=== PATIENT | female | born 1955 | race Caucasian/White ===

== ENCOUNTER → 2018-01-16 09:16 | Outpatient (CLI) | payer BC, SELFPAY ==
[2018-01-16 11:24] LABS: INR 1.3 (1.0-3.5); Prothrombin Time 12.4 sec (9.3-10.8)
== END ==
PROVIDERS: PCP Family Medicine; Visit Provider Family Medicine
DX: Z79.01 Long term (current) use of anticoagulants (principal); Z96.651 Presence of right artificial knee joint; I48.91 Unspecified atrial fibrillation
CPT/HCPCS: 36415; 85610

== ENCOUNTER 2018-01-23 02:05 | Outpatient (CLI) | payer BC, SELFPAY ==
[2018-01-23 11:16] LABS: INR 1.5 (1.0-3.5); Prothrombin Time 14.6 sec (9.3-10.8)
== END 2018-01-23 02:06 ==
PROVIDERS: PCP Family Medicine; Visit Provider Family Medicine
DX: I48.91 Unspecified atrial fibrillation (principal); Z79.01 Long term (current) use of anticoagulants
CPT/HCPCS: 36415; 85610

== ENCOUNTER 2018-01-23 08:00 | Outpatient (RCR) | payer BC, SELFPAY ==
--- NOTE | 2017-12-26 11:40 | PTTR_ITS ---
DATE: 12/26/17 SUBJECTIVE: Sanaz states she sees her surgeon later today. 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 She will discuss this with the surgeon at her appointment. OBJECTIVE: Manual therapy: ([id number]). Patella mobilizations in all directions, AP mobs to the tibiofemoral joint and hold relax mobs into terminal flexion achieving 110 . This is comparable to the left. Still lacking 3 to 5 of extension. Worked manual distraction through the tibiofemoral joint with over pressure into extension. AA to 0 and post mobilization lacking 3 . She went on to complete Wellness at no charge. Direct treatment time: 8:00 til 8:30 A.M. Did issue a MD note. Copy to be scanned to patient's EMR. Plan: Continue 2x per week for further mobilization and strengthening. MM/gc
--- NOTE | 2017-12-30 10:17 | PTTR_ITS ---
DATE: 12/30/17 SUBJECTIVE: Sanaz states that her MD appt went well and they gave her the ok to RTW. Sanaz states that she needs to have a conversation with HR before she can legally go back. She will begin 20 hr/wk for a few weeks and then go to her regular schedule. OBJECTIVE: Manual therapy: ([id number]). mobilizations of left tib/fem jt including posterior and anterior glides, ROM in seated and supine positions. Patella glides in all directions as well as stretching of hamstrings, ITB and piriformis, hip flex/quads in modified Uri test position. LE distractions via leg pull with over pressure into extension. STM t/o posterior hip and lateral glut region region as well as into ITB. Therapeutic procedures ([id number]). * x See flow sheet: for global LE strength and stabilization. * x Provided skilled instruction in proper exercise performance: isolation of specific mm groups. * x Other: finished via wellness at no charge, ended with cryo x 10 min. Direct treatment time: 30 min Total treatment time: 60 min
--- NOTE | 2018-01-02 09:49 | PTTR_ITS ---
DATE: 01/02/18 SUBJECTIVE: Sanaz states that she is waiting for paperwork regarding RTW. She is hoping to work tomorrow x 4 hours. OBJECTIVE: Manual therapy: ([id number]). mobilizations of tib/fem jt including anterior and posterior glides, ROM in seated and supine positions. Stretching hamstrings, ITB and piriformis in various positions as well as hip flex/quads in modified Uri test positions. LE distractions via leg pulls with over pressure stretch into extension. STM briefly of piriformis, TFL glut. Therapeutic procedures ([id number]). * x See flow sheet: for global LE strength and conditioning as well as hip stabilizations. * x Provided skilled instruction in proper exercise performance: proper quad engagement and avoiding compensatory mvmt patterns. Finished via wellness at no charge. Held on cryo post session due to time constraints. Direct treatment time: 30 min Total treatment time: 55 min
--- NOTE | 2018-01-06 10:53 | PTTR_ITS ---
DATE: 01/06/18 SUBJECTIVE: Sanaz states she went back to work, 6 hrs. per shift. Held up well with her knee. Actually dealt with more back and buttock pain. States that this progresses as the day goes on, with weight bearing and walking. Admits she has had a 5 year sams with these symptoms. OBJECTIVE: Seen today for a recheck - Patient's active hip ROM is WFL. Limited into flexion due to her pendulous abdomen. Tried some cross legged IT band and piriformis stretching, but she is unable to do this with either LE due to lack of mobility through the hips and knees. I do show her supine knee to contralateral shoulder for posterior hip stretching, which she is able to do with use of a towel. She was issued this to be done as part of her HEP. Also, spent time with TA activation, working on palpation for contraction isolation as well as proper breathing technique incorporating some diaphragmatic breathing with proper scapular positioning with retraction and depression. She required verbal and tactile cues for this activity. Hip abduction strength is 4-/5 right; 4/5 left. Hip extension 4/5 bilaterally. Quads and hams 4+/5 bilaterally. She went on to complete the remainder of her strengthening via Wellness at no charge. Therapeutic procedures ([id number]). Direct treatment time: 8:00 til 8:30 A.M. She completed her strengthening via Wellness at no charge. This was upgraded to include resisted band side stepping, backward stepping as well as seated core stabilization using a fit ball on the seat surface. Assessment: Symptoms are likely stemming from core stability weakness and glute weakness. This was evident with today's special testing. Plan: Continue with the current POC progressing core stabilization exercises via HEP as well. MM/gc
--- NOTE | 2018-01-09 09:00 | NT_ITS ---
01/09/18 NO CHARGE I fabricated a pair of accommodative custom orthotics using Aliplast buff and Plastizote material. Molded her in subtalar joint neutral position while seated. Placed a felt scaphoid pad bilaterally with metatarsal pad on her L. These fit well in her shoes upon completion . Proper break in time was gone over with the patient. 40 mins no charge. RF/dl
--- NOTE | 2018-01-09 11:34 | PTTR_ITS ---
DATE: 01/09/18 SUBJECTIVE: Sanaz states that she is holding up fairly well since returning to work. She c/o LBP and bilateral foot pain. She reports compliancy with HEP for stretching of low back and hips, and feels it is helpful. OBJECTIVE: Manual therapy: ([id number]). mobilizations of right tib/fem jt including posterior and anterior glides, P/ AAROM in seated and supine positions. Patella glides in all directions. Stretching of hamstrings, ITB, piriformis, hip flex/quads in modified Uri test position. LE distractions via leg pulls. Lumbar rotation in hooklying and SKTC. STM t/o posterior aspect of right hip and into buttock using PRT's and CFM. She was then fitted with orthotics see Claudy Luong note for details. She went onto perform a ther ex routine for global LE strength and stabilization while incorporating core and postural work. This was performed with assisted personnel at no charge. Direct treatment time: 35 min Total treatment time: 80 min
--- NOTE | 2018-01-13 07:07 | NT_ITS ---
01/13/18 Patient canc due to stomach illness. MM/dl
--- NOTE | 2018-01-16 13:06 | PTTR_ITS ---
DATE: 01/16/18 SUBJECTIVE: Sanaz states she has been having some left groin pain. Thinks it may be related to some of the exercises she did in our clinic last visit. OBJECTIVE: Seen today for a recheck - She does have pain with resisted quadriceps / knee extension on the left. She is tender with palpation of the proximal quadriceps. Mild discomfort with end range hip abduction at 40 . Painfree hip adduction strength testing at 4+/ 5. Did perform hold relax quadriceps stretching in modified Uri test position on the left. Had her hold on her left LE strengthening for hip flexion and quadriceps. Did perform manual therapy to the right knee for terminal extension achieving 0 AA post mobs with tibiofemoral joint distraction , as well as patella mobs in all directions. Manual therapy: ([id number]). Direct treatment time: 8:00 til 8:30 A.M. Completed strengthening via [employer] at no charge. Assessment: Mild quadriceps strain (left). Responded well to hold relax stretching with decreased pain with walking post stretching at today's session. Knee ROM is improving nicely with her flexion. Still hypo mobile with patella glides in all directions. Plan: Continue as indicated above. MM/gc
--- NOTE | 2018-01-20 08:00 | PTTR_ITS ---
DATE: 01/20/18 SUBJECTIVE: Sanaz continues to complain of L anterior hip pain. Has been holding up well with work in regards to her knee. Had a great day at work yesterday, walked to and from work as well as standing on her feet majority of the day. Got home after work and sat down. A 1/2 hour after she stood up and had intensifying anterior L pain. This was most noted with ambulating with advancing her L LE. Manual therapy: ([id number]). R knee mobilizations, tibiofemoral joint mobs, distraction, patella mobs and over pressure into extension. Upon re-check, the patient does have pain with resisted hip flexion with partial flexed knee SLR, also pain with advancing leg during stance and pain with pivots. She has (-) OA testing with Scour sign and/or Amber. Tender to palpation over the iliopsoas. We do modify her orthotic to shave down some of her scaphoid pad on the L. She then completed strengthening via wellness at no charge. Direct treatment time: 30 mins Total treatment time: 30 mins A: Appears to be presenting with anterior hip flexor strain. She may be compensating a little bit due to her scaphoid pad and orthotic, which we modified today. P: Follow up with later this week. If she continues to be symptomatic, will consider referral to begin treatment, otherwise start decreasing frequency of visits next week 1x a week. MM/dl
--- NOTE | 2018-01-23 08:00 | PTTR_ITS ---
DATE: 01/23/18 SUBJECTIVE: Sanaz states that her L hip has been feeling much better. Manual therapy: ([id number]). R knee mobilizations, anterior/posterior, followed by patella mobilizations in all directions, manual distraction, over pressure into extension lacking 3 degrees. Did perform some Nick strain, counterstrain PRT's to L hip flexor followed by some L hip anterior hip/quad hip flexion stretching. She then completed her therex via wellness. Direct treatment time: 30 mins Total treatment time: 30 mins A: Near full extension with R knee now. Patella mobility is mildly limited, but is continuing to progress. Ambulating with minimal antalgia now. P: Off next week, and will re-check her after that see how she holds up. Following that week, will discuss participation in MSP if she is holding up well. MM/dl
== END 2018-01-24 23:59 | disposition home or self-care (01) ==
LOC: PT 08:00
PROVIDERS: PCP Family Medicine; Referring Provider Orthopaedic Surgery; Visit Provider Orthopaedic Surgery
DX: Z47.1 Aftercare following joint replacement surgery (principal); Z96.651 Presence of right artificial knee joint
CPT/HCPCS: 97110; 97140

== ENCOUNTER 2018-01-29 02:02 | Outpatient (CLI) | payer BC, SELFPAY ==
[2018-01-29 10:03] LABS: INR 1.8 (1.0-3.5); Prothrombin Time 16.9 sec (9.3-10.8)
== END 2018-01-29 02:22 ==
PROVIDERS: PCP Family Medicine; Visit Provider Family Medicine
DX: I48.91 Unspecified atrial fibrillation (principal); Z79.01 Long term (current) use of anticoagulants
CPT/HCPCS: 36415; 85610

== ENCOUNTER 2018-02-06 02:17 | Outpatient (CLI) | payer BC, SELFPAY ==
[2018-02-06 11:50] LABS: INR 1.7 (1.0-3.5); Prothrombin Time 15.9 sec (9.3-10.8)
== END 2018-02-06 02:37 ==
PROVIDERS: PCP Family Medicine; Visit Provider Family Medicine
DX: I48.91 Unspecified atrial fibrillation (principal); Z79.01 Long term (current) use of anticoagulants
CPT/HCPCS: 36415; 85610

== ENCOUNTER 2018-02-14 01:11 | Outpatient (CLI) | payer BC, SELFPAY ==
[2018-02-14 11:43] LABS: Prothrombin Time 19.2 sec (9.3-10.8)
== END 2018-02-14 01:31 ==
PROVIDERS: PCP Family Medicine; Visit Provider Family Medicine
DX: I48.91 Unspecified atrial fibrillation (principal); Z79.01 Long term (current) use of anticoagulants
CPT/HCPCS: 36415; 85610

== ENCOUNTER 2018-03-12 02:01 | Outpatient (CLI) | payer BC, SELFPAY ==
[2018-03-12 11:17] LABS: Prothrombin Time 14.9 sec (9.3-10.8)
[2018-03-12 11:52] LABS: INR 1.5 (1.0-3.5)
== END 2018-03-12 02:21 ==
PROVIDERS: PCP Family Medicine; Visit Provider Family Medicine
DX: Z79.01 Long term (current) use of anticoagulants (principal)
CPT/HCPCS: 36415; 85610

== ENCOUNTER 2018-03-24 12:30 | Outpatient (CLI) | payer BC, SELFPAY ==
[2018-03-24 13:27] LABS: INR 1.9 (1.0-3.5); Prothrombin Time 18.3 sec (9.3-10.8)
== END 2018-03-24 12:50 ==
PROVIDERS: PCP Family Medicine; Visit Provider Family Medicine
DX: I48.91 Unspecified atrial fibrillation (principal); Z79.01 Long term (current) use of anticoagulants
CPT/HCPCS: 36415; 85610

== ENCOUNTER 2018-04-09 01:29 | Outpatient (CLI) | payer BC, SELFPAY ==
[2018-04-09 12:41] LABS: INR 1.9 (1.0-3.5); Prothrombin Time 18.4 sec (9.3-10.8)
== END 2018-04-09 01:49 ==
LOC: LOS 01:29 → LBO 11:37
PROVIDERS: PCP Family Medicine; Visit Provider Family Medicine
DX: Z79.01 Long term (current) use of anticoagulants (principal)
CPT/HCPCS: 36415; 85610

== ENCOUNTER 2018-04-21 10:53 | Outpatient (CLI) | payer BC, SELFPAY ==
[2018-04-21 11:37] LABS: Prothrombin Time 24.1 sec (9.3-10.8)
[2018-04-21 11:45] LABS: INR 2.5 (1.0-3.5)
== END 2018-04-21 11:13 ==
PROVIDERS: PCP Family Medicine; Visit Provider Family Medicine
DX: Z79.01 Long term (current) use of anticoagulants (principal)
CPT/HCPCS: 36415; 85610

== ENCOUNTER 2018-05-29 08:53 | Outpatient (CLI) | payer BC, SELFPAY ==
[2018-05-29 09:34] LABS: INR 3.3 (1.0-3.5)
== END 2018-05-29 09:13 ==
PROVIDERS: PCP Family Medicine; Visit Provider Family Medicine
DX: I48.2 Chronic atrial fibrillation (principal); Z79.01 Long term (current) use of anticoagulants
CPT/HCPCS: 36415; 85610

== ENCOUNTER 2018-06-11 08:51 | Outpatient (CLI) | payer BC, SELFPAY ==
[2018-06-11 09:51] LABS: Prothrombin Time 20.4 sec (9.3-11.0)
== END 2018-06-11 09:11 ==
PROVIDERS: PCP Family Medicine; Visit Provider Family Medicine
DX: I48.2 Chronic atrial fibrillation (principal); Z79.01 Long term (current) use of anticoagulants
CPT/HCPCS: 36415; 85610

== ENCOUNTER 2018-07-21 09:58 | Outpatient (CLI) | payer BC, SELFPAY ==
[2018-07-21 11:08] LABS: Prothrombin Time 30.8 sec (9.3-11.0)
[2018-07-21 11:43] LABS: Anion Gap 6.5 mmol/L (3-11); BUN 19 mg/dL (7-18); CO2 31.5 mmol/L (21.0-32.0); CREATININE 1.12 mg/dL (0.55-1.02); Calcium 9.1 mg/dL (8.5-10.1); Chloride 101 mmol/L (98-107); Cholesterol 243 mg/dL (50-200); Estimated GFR 48.98 (mL/min/1.73m2); Glucose 105 mg/dL (70-100); HDL Cholesterol 41 mg/dL (40-60); LDL CHOLESTEROL 163 mg/dL (<100); Potassium 3.5 mmol/L (3.5-5.1); Sodium 139 mmol/L (136-145); Triglyceride 215 mg/dL (30-150)
== END 2018-07-21 10:18 ==
PROVIDERS: PCP Family Medicine; Visit Provider Family Medicine
DX: E78.5 Hyperlipidemia, unspecified (principal); I10 Essential (primary) hypertension; Z79.01 Long term (current) use of anticoagulants; I48.91 Unspecified atrial fibrillation
CPT/HCPCS: 36415; 80048; 80061; 83721; 85610

== ENCOUNTER 2018-08-20 01:45 | Outpatient (CLI) | payer BC, SELFPAY ==
--- NOTE | 2018-08-20 09:20 | DI.MAMMO_ITS ---
SYMPTOM/DIAGNOSIS: SCREENING, Z12.31 MAMMOGRAMS: Mammograms were interpreted according to the usual protocol including computer analysis with CAD system, tomosynthesis and C view imaging. Comparison is made with exams from [id number]. The breasts are composed of fatty density tissue. No suspicious masses or suspicious microcalcifications are seen. There has been no significant change. IMPRESSION: Category 1, negative mammogram. Yearly screening mammography is recommended. Breast density, category A. SA ASSESSMENT OF FINDINGS: Negative. Category 1. Patient will receive a letter notifying them of these results. BI-RAD category A. The breasts are almost entirely fatty.
[2018-08-20 09:56] LABS: Prothrombin Time 30.3 sec (9.3-11.0)
[2018-08-20 12:04] LABS: ALT 27 U/L (12-78); AST 18 U/L (15-37); Albumin 3.7 g/dL (3.4-5.0); Alkaline Phosphatase 90 U/L (46-116); Bilirubin, Direct 0.08 mg/dL (0.00-0.20); Bilirubin, Total 0.3 mg/dL (0.2-1.0); NT-proBNP 387 pg/mL; TSH (W/Ref FT4) 2.24 uIU/mL (0.358-3.74); Total Protein 7.9 g/dL (6.4-8.2)
== END 2018-08-20 02:05 ==
PROVIDERS: Student in an Organized Health Care Education/Training Program; PCP Family Medicine; Visit Provider Family Medicine
DX: Z12.31 Encounter for screening mammogram for malignant neoplasm of breast (principal); I48.91 Unspecified atrial fibrillation; Z79.01 Long term (current) use of anticoagulants
CPT/HCPCS: 36415; 77063; 77067; 80076; 83880; 84443; 85610

== ENCOUNTER 2018-09-23 00:41 | Outpatient (CLI) | payer BC, SELFPAY ==
--- NOTE | 2018-09-23 10:22 | MERGE_ITS ---
*[facility]* *[facility]* [address] [place] [address] Date of study: 09/23/2018 Transthoracic Echocardiography M-mode, complete 2D, complete spectral Doppler, and color Doppler *STUDY CONCLUSIONS* Impressions: The patient was in atrial fibrillation throughout study. This rhythm can interfere with accurate global and segmental wall motion analysis. Summary: 1. Left ventricle: The cavity size was normal. Wall thickness was normal. Systolic function was normal. The estimated ejection fraction was 55-60%. Wall motion was normal; there were no regional wall motion abnormalities. 2. Aortic valve: Trileaflet; normal thickness leaflets. 3. Ascending aorta: The ascending aorta was mildly dilated. 4. Mitral valve: Mildly calcified annulus. There was mild to moderate regurgitation. 5. Right ventricle: The cavity size was normal. Wall thickness was normal. Systolic function was normal. 6. Tricuspid valve: There was mild-moderate regurgitation. 7. Pulmonary arteries: Pulmonary systolic pressure was increased, in the range of 35mm Hg to 40mm Hg. *PATIENT PRESENTATION* Height: 160cm ((63in) ) S/D Pressure: 144 / 97 Weight: 121.6kg ((267.4lb) ) BSA: 2.4m^2 Test start time: 10:40 AM. Test stop time: 11:45 AM. PERFORMING Unknown ORDERING Danilo Samuel REFERRING Danilo Samuel CONSULTING Kaushal Gillespie PERFORMING [facility] SUPERVIS[employer]ACHINE RT Daniella (R)(CT)DELANEY *PROCEDURE DATA* Procedure information: This study was interpreted by [facility]. Pertinent images and digital data are archived for permanent storage and are available for subsequent review. Comparison was made to the study of 09/21/2010. Study status: Routine. Transthoracic echocardiography. M-mode, complete 2D, complete spectral Doppler, and color Doppler. A Transthoracic Echocardiogram was performed. Scanning was performed from the parasternal, apical, subcostal, and suprasternal notch acoustic windows. Images were obtained using an [id number] cardiac ultrasound machine. Image quality was adequate. Study completion: The patient tolerated the procedure well. There were no complications. History: PMH: Afib i48.91 *CARDIAC ANATOMY* Left ventricle: The cavity size was normal. Wall thickness was normal. Systolic function was normal. The estimated ejection fraction was 55-60%. Wall motion was normal; there were no regional wall motion abnormalities. The study was not technically sufficient to allow evaluation of LV diastolic dysfunction due to atrial fibrillation. Aortic valve: Trileaflet; normal thickness leaflets. Mobility was not restricted. Doppler: Transvalvular velocity was within the normal range. There was no stenosis. There was no significant regurgitation. VTI ratio of LVOT to aortic valve: 0.55. Valve area (VTI): 1.4cm^2. Indexed valve area (VTI): 0.6cm^2/m^2. Peak velocity ratio of LVOT to aortic valve: 0.57. Valve area (Vmax): 1.4cm^2. Indexed valve area (Vmax): 0.6cm^2/m^2. Mean velocity ratio of LVOT to aortic valve: 0.62. Valve area (Vmean): 1.5cm^2. Indexed valve area (Vmean): 0.6cm^2/m^2. Mean gradient (S): 7.1mm Hg. Peak gradient (S): 11.9mm Hg. Aorta: Aortic root: The aortic root was normal in size. Ascending aorta: The ascending aorta was mildly dilated. Mitral valve: Mildly calcified annulus. Mobility was not restricted. Doppler: Transvalvular velocity was within the normal range. There was no evidence for stenosis. There was mild to moderate regurgitation. Valve area by pressure half-time: 3.7cm^2. Indexed valve area by pressure half-time: 1.5cm^2/m^2. Peak gradient (D): 5.4mm Hg. Left atrium: The atrium was normal in size. Right ventricle: The cavity size was normal. Wall thickness was normal. Systolic function was normal. Pulmonic valve: Structurally normal valve. The pulmonary valve appears to be grossly normal. Doppler: Transvalvular velocity was within the normal range. There was no evidence for stenosis. There was no significant regurgitation. Tricuspid valve: Structurally normal valve. Doppler: Transvalvular velocity was within the normal range. There was no evidence for stenosis. There was mild-moderate regurgitation. Pulmonary artery: Pulmonary systolic pressure was increased, in the range of 35mm Hg to 40mm Hg. Right atrium: The atrium was normal in size. Pericardium: There was no pericardial effusion. Systemic veins: Inferior vena cava: Well visualized. The vessel was patent and normal in size. The respirophasic diameter changes were in the normal range (greater than or equal to 50%). Baseline ECG: Atrial fibrillation. Measurements Left ventricle Value Reference LV ID, ED, PLAX 4.4 cm 3.5 - 6.0 LV ID, ES, PLAX 3.3 cm 2.1 - 4.0 LV PW thickness, ED, PLAX 1.1 cm LV end-diastolic volume, 1-p A2C 93 ml LV ejection fraction, 1-p A2C 52 % LV end-diastolic volume, 1-p A4C 62 ml LV ejection fraction, 1-p A4C 62 % LV e', lateral 0.108 m/sec LV E/e', lateral 11 LV e', medial 0.104 m/sec LV E/e', medial 11 LV e', average 0.106 m/sec LV E/e', average 11 Ventricular septum Value Reference IVS thickness, ED, PLAX 1.0 cm LVOT Value Reference LVOT ID, A-P 1.8 cm LVOT area 2.5 cm^2 LVOT peak velocity, S 0.98 m/sec LVOT mean velocity, S 0.8 m/sec LVOT VTI, S 18.2 cm LVOT peak gradient, S 3.9 mm Hg LVOT mean gradient, S 2.7 mm Hg Stroke volume (SV), LVOT DP 45 ml Stroke index (SV/bsa), LVOT DP 19 ml/m^2 Aortic valve Value Reference Aortic valve peak velocity, S 1.7 m/sec Aortic valve mean velocity, S 1.29 m/sec Aortic valve VTI, S 33.0 cm Aortic mean gradient, S 7.1 mm Hg Aortic peak gradient, S 11.9 mm Hg VTI ratio, LVOT/AV 0.55 Aortic valve area, VTI 1.4 cm^2 Velocity ratio, peak, LVOT/AV 0.57 Aortic valve area, peak velocity 1.4 cm^2 Velocity ratio, mean, LVOT/AV 0.62 Aortic valve area, mean velocity 1.5 cm^2 Aortic valve area/bsa, mean velocity 0.6 cm^2/m^2 Aorta Value Reference Aortic root ID, ED 2.7 cm Ascending aorta ID, A-P, S 3.7 cm Left atrium Value Reference LA area, ES, A4C (H) 30.4 cm^2 8.8 - 23.4 LA area, ES, A2C 24 cm^2 LA volume/bsa, ES, 1-p A4C 50 ml/m^2 LA volume, ES, 2-p 89 ml LA volume/bsa, ES, 2-p 37 ml/m^2 Mitral valve Value Reference Mitral E-wave peak velocity 1.16 m/sec Mitral deceleration time 206 ms 150 - 230 Mitral pressure half-time 60 ms Mitral peak gradient, D 5.4 mm Hg Mitral valve area, PHT, DP 3.7 cm^2 Pulmonary veins Value Reference Pulmonary vein peak velocity, S 0.22 m/sec Pulmonary vein peak velocity, D 0.73 m/sec Pulmonary vein velocity ratio, peak, 0.3 S/D Tricuspid valve Value Reference Tricuspid regurg peak velocity 3.1 m/sec Tricuspid peak RV-RA gradient 38.3 mm Hg Right atrium Value Reference RA area, ES, A4C (H) 25.8 cm^2 8.3 - 19.5 Legend: (L) and (H) kina values outside specified reference range. I have personally reviewed the images and have reviewed and edited the reported findings. Electronically signed by Danilo Samuel 09/23/2018 17:44
[2018-09-23 14:12] LABS: INR 3.6 (0.9-1.1); Prothrombin Time 36.4 sec (9.3-11.0)
== END 2018-09-23 01:01 ==
PROVIDERS: PCP Family Medicine; Visit Provider Student in an Organized Health Care Education/Training Program
DX: I48.91 Unspecified atrial fibrillation (principal); I51.7 Cardiomegaly; I08.1 Rheumatic disorders of both mitral and tricuspid valves; I10 Essential (primary) hypertension; Z79.01 Long term (current) use of anticoagulants
CPT/HCPCS: 36415; 85610; 93306

== ENCOUNTER 2018-09-23 01:46 | Outpatient (CLI) | payer BC, SELFPAY ==
--- NOTE | 2018-10-01 11:59 | HOLTER_ITS ---
HOLTER MONITOR DATE OF DICTATION October 01, 2018 STUDY INDICATIONS: Atrial fibrillation. REQUESTING PROVIDER Danilo Samuel M.D. FINDINGS: The patient was monitored for two days. The patient was in atrial fibrillation throughout, average heart rate 103 beats per minute, range 75 to 144 beats per minute. There were 3 PVCs. There were no pauses greater than 3 seconds. There was no higher degree heart block. There was one patient event that correlated with atrial fibrillation with a heart rate of 98 beats per minute. FINAL INTERPRETATION Atrial fibrillation with suboptimal rate control. Danilo Samuel M.D. KATY/jeannine T - 10/01/18
== END 2018-09-23 02:06 ==
PROVIDERS: PCP Family Medicine; Visit Provider Student in an Organized Health Care Education/Training Program
DX: I48.91 Unspecified atrial fibrillation (principal)
CPT/HCPCS: 93225

== ENCOUNTER 2018-09-30 09:45 | Outpatient (CLI) | payer BC, SELFPAY | END 2018-09-30 10:05 | PROVIDERS: PCP Family Medicine; Visit Provider Student in an Organized Health Care Education/Training Program | DX: I48.91 Unspecified atrial fibrillation (principal) | CPT/HCPCS: 93226 ==

== ENCOUNTER 2018-10-07 01:05 | Outpatient (CLI) | payer BC, SELFPAY ==
--- NOTE | 2018-10-07 07:55 | DI.MRI_ITS ---
SYMPTOMS/DIAGNOSIS: ? RT RADICULOPATHY, L4-5 SCIATICA MRI OF THE LUMBAR SPINE: T 1, T 2 and STIR sagittal, T 1 and T 2 axial sequences were performed. The conus medullaris appears intact. The marrow signal appears normal. The T 12 - L 1 through L 3 - 4 discs show normal height and hydration. There is no significant neural foraminal narrowing or central canal stenosis. At L 4 - 5, the disc appears intact. There are facet degenerative changes and ligamentous hypertrophy but no significant neural foraminal narrowing or central canal stenosis. The L 5 - S 1 disc also appears intact. There are facet degenerative changes causing mild bilateral neural foraminal encroachment. IMPRESSION: Mild neural foraminal narrowing at L 5 - S 1 secondary to facet joint encroachment. No disc herniation or significant disc bulging is identified.
== END 2018-10-07 01:25 ==
PROVIDERS: PCP Family Medicine; Visit Provider Psychiatry & Neurology Neurology
DX: M54.17 Radiculopathy, lumbosacral region (principal); M54.40 Lumbago with sciatica, unspecified side
CPT/HCPCS: 72148

== ENCOUNTER 2018-10-07 01:46 | Outpatient (CLI) | payer BC, SELFPAY ==
[2018-10-07 09:21] LABS: INR 2.4 (0.9-1.1); Prothrombin Time 23.9 sec (9.3-11.0)
== END 2018-10-07 02:06 ==
PROVIDERS: PCP Family Medicine; Visit Provider Family Medicine
DX: Z79.01 Long term (current) use of anticoagulants (principal)
CPT/HCPCS: 36415; 85610

== ENCOUNTER 2018-12-15 09:57 | Day surgery (SDC) | payer BC, SELFPAY ==
--- NOTE | 2018-12-15 06:51 | W.COLOREPORT ---
Date of service: 12/15/18 Time of Service: 12:33 Colonoscopy Report Date of procedure: 12/15/18 Pre-op diagnosis general: Colon Cancer Screening Post-op diagnosis procedure note: other (Diverticulosis) Procedure: Colonoscopy Surgeon: Nicolette Romero Anesthesia proc note operative: other (General/ ASA 2/ Mary Galindo CRNA) Estimated blood loss (mL): 0 Pathology: none sent Complications: None Disposition: other (General/ ASA /) Indications: Mrs. Yo is a pleasant 63 year old female who was seen in the office for a screening colonoscopy. Her last colonoscopy was in 2013 and she had one hyperplastic polyp. Risks, benefits and complications have been reviewed. Complications include but are not limited to bleeding, pain, perforation, missed small lesion/polyp, sore throat, aspiration and adverse reaction to the medications. Questions were entertained and answered to their satisfaction and they wished to proceed. No guarantees were given or implied. Prep: Miralax/Dulcolax Procedure Start Time: 12:33 Procedure End Time: 13:00 Retraction Time: 14 minutes Findings: Diverticulosis Procedure Description: After informed consent was obtained the patient was taken to the procedure room and placed in a left decubitous position. Monitors were applied and a time out was done. The patients name, date of , procedure, allergies to medications and metal in their body was reviewed. The patient was then sedated. Once sedated and comfortable a rectal exam was done. External exam was normal. Internal exam revealed a normal sphincter tone and no palpable masses. The scope was then introduced and retro-flexed. No internal hemorrhoids were identified. The scope was then advanced to the cecum without difficulty. The TI and appendiceal orifice were identified. The prep was adequate. The scope was then slowly retracted over 14 minutes back into the rectum. There were no polyps. There was diverticulosis in the descending and sigmoid colon. There was some loose stool but easily cleaned with saline. The scope was removed and the patient was woken up and taken back to Same day surgery in stable condition. The patient tolerated the procedure well and there were no immediate complications. Follow up: The patient should follow up in 10 years unless they develop changes in bowel habits or other new gastrointestinal complaints.
--- NOTE | 2018-12-15 06:53 | W.PM.DSUDISC ---
Discharge Plan Disposition Patient Disposition: HOME Condition: Good Discharge Details Reason For Visit: Colon cancer Screening Attending Provider: Nicolette Romero Primary Care Provider: Kaushal Gillespie Home Meds and New Rx's Prescriptions: Continued hydrochlorothiazide 12.5 mg capsule 12.5 mg PO DAILY Qty: 90 RF: 4 metoprolol succinate 25 mg tablet extended release 24 hr 25 mg PO DAILY PRN (Reason: hypertension) Qty: 90 RF: 4 rosuvastatin 5 mg tablet 5 mg PO QHS Qty: 30 RF: 11 diazepam [Valium] 5 mg tablet 5 mg PO ONCE Qty: 2 RF: 0 gabapentin 300 mg capsule 300 mg PO DIRECTED Qty: 180 RF: 5 albuterol sulfate [ProAir HFA] 8.5 GM HFA aerosol inhaler 2 puff Inhalation Q4H PRN Qty: 1 RF: 1 warfarin [Coumadin] 5 mg tablet See Rx Instructions PO DAILY Qty: 100 RF: 5 acetaminophen [Tylenol Arthritis] 650 MG tablet extended release 1,300 mg PO PRN (Reason: Pain) RF: 0 magnesium 250 mg Tablet 500 mg PO DAILY RF: 0 Discontinued polyethylene glycol 3350 17 gram/dose powder 238 g PO ONCE Qty: 238 RF: 0 bisacodyl [Dulcolax (bisacodyl)] 5 mg tablet,delayed release (DR/EC) 5 mg PO ONCE Qty: 4 RF: 0 Discharge Instructions Instructions: Colonoscopy (GEN), Diverticulosis (ED) Additional Instructions: Findings: Diverticulosis Follow up: 10 years Please call if you develop: fevers >101.5 Nausea or Vomiting Abdominal pain that is not transient DAY SURGERY UNIT POST COLONOSCOPY INSTRUCTIONS 1. Because there will be medication in your system for the next 24 hours, you may feel a little sleepy. Your coordination will be affected. Therefore: a. Do not drive or operate dangerous equipment for 24 hours. b. Do not drink alcohol beverages for 24 hours (not even beer). c. Plan to go home and rest for the day. 2. Generally there are no restrictions on your activity after a day or so has gone by, but you may feel a bit fatigued for a few days. 3 After you arrive home you may have a light meal and return to a normal diet as you can tolerate it without feeling sick to your stomach. 4. After surgery, you may feel pain or discomfort. This should be only transient, but if it persists please contact your doctor. 5. If there are any questions regarding the findings of your procedure, please feel free to contact your doctor. 6. If you are unable to contact your doctor with a problem, contact the hospital at [phone]. 7. Continue all your regular medications unless directed otherwise. I understand the above instructions and have no questions. Signature of Patient or Responsible Adult Escort Date/Time Name of Responsible Adult Escort Signature of Nurse Date/Time Activity:: Activity as Tolerated Diet:: High Fiber Diet Discharge Orders Discharge Orders: Discharge Order (Routine); Ordered 12/15/18 Ordered By: Nicolette Romero DS: Diagnosis Discharge Diagnosis (1) S/P colonoscopy: (2) Diverticulosis:
[2018-12-15 10:24] VITALS: BP 145/99; PULSE 100; RESP 16; TEMP 36.4; O2SAT 95
[2018-12-15 10:56] LABS: Prothrombin Time 10.1 sec (9.3-11.0)
[2018-12-15] MEDS: Lactated Ringers 1,000 ML 80 ML IV (11:05)
[2018-12-15 14:00] VITALS: BP 121/93; PULSE 80; RESP 16; TEMP 36.2; O2SAT 97
== END 2018-12-15 14:00 | disposition home or self-care (01) ==
PROVIDERS: PCP Family Medicine; Visit Provider Surgery
PROC: 0DJD8ZZ Inspection of Lower Intestinal Tract, Via Natural or Artificial Opening Endoscopic (ICD-10-PCS; CPT 45378; principal; 2018-12-15 10:45)
DX: Z12.11 Encounter for screening for malignant neoplasm of colon (principal); K57.30 Diverticulosis of large intestine without perforation or abscess without bleeding; Z87.19 Personal history of other diseases of the digestive system; I10 Essential (primary) hypertension; K21.9 Gastro-esophageal reflux disease without esophagitis
CPT/HCPCS: 45378; 36415; 85610

== ENCOUNTER 2018-12-24 02:28 | Outpatient (CLI) | payer BC, SELFPAY ==
[2018-12-24 12:32] LABS: INR 1.2 (0.9-1.1); Prothrombin Time 12.1 sec (9.3-11.0)
== END 2018-12-24 02:48 ==
PROVIDERS: PCP Family Medicine; Visit Provider Family Medicine
DX: I48.91 Unspecified atrial fibrillation (principal); Z79.01 Long term (current) use of anticoagulants
CPT/HCPCS: 36415; 85610

== ENCOUNTER 2019-01-02 13:22 | Outpatient (CLI) | payer BC, SELFPAY ==
[2019-01-02 14:16] LABS: INR 2.4 (0.9-1.1); Prothrombin Time 24.6 sec (9.3-11.0)
== END 2019-01-02 13:42 ==
PROVIDERS: PCP Family Medicine; Visit Provider Family Medicine
DX: Z79.01 Long term (current) use of anticoagulants (principal)
CPT/HCPCS: 36415; 85610

== ENCOUNTER 2019-01-14 13:22 | Outpatient (CLI) | payer BC, SELFPAY ==
[2019-01-14 14:15] LABS: INR 2.6 (0.9-1.1); Prothrombin Time 26.3 sec (9.3-11.0)
== END 2019-01-14 13:42 ==
PROVIDERS: PCP Family Medicine; Visit Provider Family Medicine
DX: I48.91 Unspecified atrial fibrillation (principal); Z79.01 Long term (current) use of anticoagulants
CPT/HCPCS: 36415; 85610

== ENCOUNTER 2019-01-30 09:51 | Outpatient (CLI) | payer BC, SELFPAY ==
[2019-01-30 10:27] LABS: Prothrombin Time 30.1 sec (9.3-11.0)
== END 2019-01-30 10:11 ==
PROVIDERS: PCP Family Medicine; Visit Provider Family Medicine
DX: Z79.01 Long term (current) use of anticoagulants (principal)
CPT/HCPCS: 36415; 85610

== ENCOUNTER 2019-02-24 11:09 | Outpatient (CLI) | payer BC, SELFPAY ==
[2019-02-24 11:16] VITALS: BP 128/76; PULSE 102; RESP 22; TEMP 36.6; O2SAT 94
[2019-02-24 11:38] LABS: INR 1.1 (0.9-1.1)
[2019-02-24] MEDS: Bupivacaine 0.5% Pres-Free 10 ML VIAL IJ (13:16)
[2019-02-24 13:22] VITALS: BP 156/91; PULSE 106; RESP 12; O2SAT 96
[2019-02-24] MEDS: Omnipaque 240 MG/ML 50 ML BTL IJ (13:22)
--- NOTE | 2019-02-24 13:23 | PDOC.PAIN_ITS ---
Pain Clinic Procedure Note Procedure Note Procedure Note: Lumbar/Sacral Medial Branch Blocks JANAY HAYNES has been referred [facility] the [facility] for lumbar/sacral medial branch blocks. COMMENTS: Previously seen in our clinic by Ms. Stephensonlupegui. I did review her evaluation. DX: Lumbosacral spondylosis without myelopathy Patient was interviewed and the medical record reviewed. There were no medical, pharmacologic, radiographic or other structural contraindications to attempting fluoroscopically guided local anesthetic lumbar/sacral medial branch blocks. Risks and expected side effects as well as potential benefit of the procedure were reviewed and voiced concerns addressed. The printed consent form was signed and witnessed. Standard time-out procedure was performed. Patient was placed in the prone position on the fluoroscopy table and automated blood pressure cuff and pulse oximeter applied. The skin entry points for approaching the anatomic target points of the segmental medial branches of bilateral L3-L5were identified with anfluoroscopy and marked. Following thorough Chlorhexadine preparation of the skin and draping and 1% lidocaine infiltration of the skin entry points and subcutaneous tissues, a 22 gauge spinal needle was placed under fluoroscopic guidance down on to the target point for each respective segmental medial branch.Position was confirmed in A/P, oblique and lateral views with 0.25ml of omnipaque 240. At this point I injected 0.5ml 0.5% Bupivacaine was injected near each segmental nerve. Vital signs were stable throughout the procedure and were as recorded in the docflowsheet by the nursing staff. Follow up plans and appointments were discussed and was instructed to keep careful note of how the usual pain was modified by these injections. Specifically was asked to keep a pain diary for the next 24 hours using a numeric pain scale of 0-10 and report these results at the follow-up visit. Post procedure instruction was given as documented in the nursing documentation and having met discharge criteria. Patient was discharged from the [facility]. Based on the medial branches blocked today, if the patient has adequate relief and we are able to proceed to radiofrequency ablation, the treatment should result in the denervation of the bilateral L4-L5 and L5-S1 FACET JOINTS}. We would expect to denervate a total of 4 facets during the radiofrequency ablat ion. COMMENTS: She will call back with her 1-4 hour post-procedure pain levels. CC: Kaushal Gillespie MD
--- NOTE | 2019-02-24 13:26 | DI.RAD_ITS ---
EXAM: XR PAIN CLINIC LUMBAR SP 2V CLINICAL HISTORY: Dx:Lumbar Spondylosis TECHNIQUE: Realtime digital imaging was performed. CONTRAST MATERIAL: Please refer to the procedure report for complete details. COMPARISON: No exams were available for comparison FINDINGS: Fluoroscopy was utilized by Dr. Devlin during the performance of a lumbar medial branch block. Please refer to the procedure report for complete details. FLUORO TIME: 66.45 seconds, 41.61 mGy IMPRESSION:
== END 2019-02-24 11:29 ==
PROVIDERS: PCP Family Medicine; Visit Provider Preventive Medicine Occupational Medicine
DX: M47.817 Spondylosis without myelopathy or radiculopathy, lumbosacral region (principal)
CPT/HCPCS: 64493 ×2; 64494 ×2; 36415; 72100; 85610; Q9967

== ENCOUNTER 2019-03-30 09:13 | Outpatient (CLI) | payer BC, SELFPAY ==
[2019-03-30 11:30] LABS: Prothrombin Time 51.5 sec (9.3-11.0)
[2019-03-30 11:53] LABS: INR 5.4 (0.9-1.1)
== END 2019-03-30 09:33 ==
PROVIDERS: PCP Nurse Practitioner; Visit Provider Family Medicine
DX: I48.91 Unspecified atrial fibrillation (principal); Z79.01 Long term (current) use of anticoagulants
CPT/HCPCS: 36415; 85610

== ENCOUNTER 2019-03-31 09:59 | Outpatient (CLI) | payer BC, SELFPAY ==
[2019-03-31 10:47] LABS: Prothrombin Time 51.2 sec (9.3-11.0)
[2019-03-31 10:59] LABS: INR 5.3 (0.9-1.1)
== END 2019-03-31 10:19 ==
PROVIDERS: PCP Nurse Practitioner; Visit Provider Family Medicine
DX: I48.91 Unspecified atrial fibrillation (principal); Z79.01 Long term (current) use of anticoagulants
CPT/HCPCS: 36415; 85610

== ENCOUNTER 2019-04-02 08:52 | Outpatient (CLI) | payer BC, SELFPAY ==
[2019-04-02 15:04] LABS: INR 2.4 (0.9-1.1)
== END 2019-04-02 09:12 ==
PROVIDERS: PCP Nurse Practitioner; Visit Provider Family Medicine
DX: Z79.01 Long term (current) use of anticoagulants (principal); I48.91 Unspecified atrial fibrillation
CPT/HCPCS: 36415; 85610

== ENCOUNTER 2019-04-10 08:55 | Outpatient (CLI) | payer BC, SELFPAY ==
[2019-04-10 14:46] LABS: INR 4.2 (0.9-1.1)
== END 2019-04-10 09:15 ==
PROVIDERS: PCP Nurse Practitioner; Visit Provider Family Medicine
DX: I48.91 Unspecified atrial fibrillation (principal); Z79.01 Long term (current) use of anticoagulants
CPT/HCPCS: 36415; 85610

== ENCOUNTER 2019-04-16 03:19 | Outpatient (CLI) | payer BC, SELFPAY ==
[2019-04-16 14:56] LABS: INR 2.1 (0.9-1.1); Prothrombin Time 20.6 sec (9.3-11.0)
== END 2019-04-16 03:39 ==
PROVIDERS: PCP Nurse Practitioner; Visit Provider Family Medicine
DX: I48.91 Unspecified atrial fibrillation (principal); Z79.01 Long term (current) use of anticoagulants
CPT/HCPCS: 36415; 85610

== ENCOUNTER 2019-04-22 00:54 | Outpatient (CLI) | payer BC, SELFPAY ==
[2019-04-22 12:27] LABS: Abs Immature Grans 0.04 k/cumm (0.0-0.09); Absolute Basophil Count 0.04 k/cumm (0.0-0.2); Absolute Eosinophil Count 0.24 k/cumm (0.0-0.7); Absolute Lymphocyte Count 1.52 k/cumm (1.2-3.4); Absolute Monocyte Count 0.63 k/cumm (0.11-0.7); Absolute Neutrophil Count 4.89 k/cumm (1.2-6.7); Basophils % 0.5; Eosinophils % 3.3; HCT 47.3 % (36.0-46.0); Immature Grans % 0.5; Lymphocytes % 20.7; Mean Corp. HGB Concentration 31.7 g/dL (32.0-36.0); Mean Corpuscular Hemoglobin 28.6 pg (27.0-33.0); Mean Corpuscular Volume 90.3 fL (80-95); Mean Platelet Volume 11.2 fL (8.0-11.0); Monocytes % 8.6; Neutrophils % 66.4; Platelet Count 250 x1000/uL (130-400); RBC 5.24 m/cumm (4.00-5.20); RBC Distribution Width 15.1 % (11.7-14.6); White Blood Cell Count 7.36 k/cumm (4.4-10.8)
[2019-04-22 12:39] LABS: INR 1.5 (0.9-1.1); Prothrombin Time 15.2 sec (9.3-11.0)
[2019-04-22 13:14] LABS: ALT 21 U/L (14-59); AST 18 U/L (15-37); Albumin 3.7 g/dL (3.4-5.0); Alkaline Phosphatase 88 U/L (46-116); Anion Gap 8.3 mmol/L (3-11); BUN 18 mg/dL (7-18); Bilirubin, Total 0.3 mg/dL (0.2-1.0); CO2 34.7 mmol/L (21.0-32.0); CREATININE 1.05 mg/dL (0.55-1.02); Calcium 9.4 mg/dL (8.5-10.1); Chloride 99 mmol/L (98-107); Estimated GFR 52.76 (mL/min/1.73m2); Glucose 111 mg/dL (74-106); Potassium 3.4 mmol/L (3.5-5.1); Sodium 142 mmol/L (136-145); Uric Acid 6.3 mg/dL (2.6-6.0)
[2019-04-24 09:18] LABS: Cyclic Citrullinated Peptide <2.5 U/mL (<5.0)
== END 2019-04-22 01:14 ==
LOC: LOS 00:54 → LBO 08:35
PROVIDERS: Nurse Practitioner Family; PCP Nurse Practitioner; Visit Provider Family Medicine
DX: M25.50 Pain in unspecified joint (principal); I48.91 Unspecified atrial fibrillation; Z79.01 Long term (current) use of anticoagulants
CPT/HCPCS: 36415; 80053; 86200; 84550; 85025; 85610; 86431

== ENCOUNTER 2019-04-28 01:01 | Outpatient (CLI) | payer BC, SELFPAY ==
--- NOTE | 2019-04-28 09:21 | DI.RAD_ITS ---
EXAM: XR FOOT RT LIMITED INDICATION: RT FOOT PAIN/DEFORMITY, POLYARTHRALGIA, M25.50. COMPARISON: LEFT FOOT COMPLETE from 08/24/2013 TECHNIQUE: 2D digital imaging was performed. FINDINGS: Moderate degenerative changes are seen at the tarsometatarsal joints. The findings are most marked a t the 2nd, 3rd and 4th tarsal metatarsal joints. There are also degenerative changes seen at the art iculation of the navicular and the cuneiforms. There is a large spur at the plantar surface of the c alcaneus. There is an enthesophyte at the Achilles insertion site. Mild periarticular spurring is s een at the 1st metatarsophalangeal joint. No acute fracture or dislocation is seen. There is focal soft tissue swelling overlying the hypertrophic changes at the tarsometatarsal joints. IMPRESSION: Osteoarthritis of the right foot.
--- NOTE | 2019-04-28 09:22 | DI.RAD_ITS ---
EXAM: XR FOOT LT LIMITED INDICATION: LT FOOT PAIN/DEFORMITY, POLYARTHRALGIA, M25.50. COMPARISON: XR FOOT RT LIMITED from 04/28/2019 TECHNIQUE: 2D digital imaging was performed. FINDINGS: There are prominent hypertrophic changes seen at the tarsometatarsal joints, particularly the 2nd thr ough 5th TMT joints. There are also hypertrophic changes seen at the articulation of the navicular a nd cuneiforms. There are hammertoe deformities of the 2nd through 5th toes. There is a moderate siz ed plantar calcaneal spur. There is an enthesophyte at the insertion site of the Achilles tendon. H ypertrophic changes are seen at the posterior talus. There is soft tissue swelling overlying the tar sometatarsal joints. No acute fracture or dislocation is present. IMPRESSION: Osteoarthritis of the left foot.
--- NOTE | 2019-04-28 09:26 | DI.RAD_ITS ---
EXAM: XR ARTHRITIS SERIES INDICATION: HAND PAIN AND DEFORMITY, POLYARTHRALGIA, M25.50. COMPARISON: No exams were available for comparison TECHNIQUE: 2D digital imaging was performed. FINDINGS: In the right hand, there are prominent hypertrophic changes at the 1st carpometacarpal joint. There is also joint space narrowing and subchondral sclerosis at this level. The metacarpophalangeal joint s are well maintained. There is mild spurring at the head of the 1st metacarpal. The interphalangea l joints show varying degrees of joint space narrowing and periarticular spurring. No erosions or os teopenia is seen. No soft tissue calcifications are identified. In the left hand, there are marked hypertrophic changes seen at the 1st carpometacarpal joint. In ad dition there is joint space narrowing and subchondral sclerosis. Metacarpophalangeal joints are well maintained. The interphalangeal joints show wfrf-mo-zyrpioaj joint space narrowing and periarticula r spurring. No soft tissue calcifications are seen. No periarticular osteopenia is present. IMPRESSION: Osteoarthritis of the hands, right greater than left.
== END 2019-04-28 01:21 ==
PROVIDERS: PCP Nurse Practitioner; Visit Provider Nurse Practitioner Family
DX: M79.641 Pain in right hand (principal); M79.642 Pain in left hand; M19.041 Primary osteoarthritis, right hand; M19.042 Primary osteoarthritis, left hand; M79.672 Pain in left foot; M79.671 Pain in right foot; M19.072 Primary osteoarthritis, left ankle and foot; M19.071 Primary osteoarthritis, right ankle and foot
CPT/HCPCS: 73120; 73620

== ENCOUNTER 2019-05-05 01:51 | Outpatient (CLI) | payer BC, SELFPAY ==
[2019-05-05 09:52] LABS: Prothrombin Time 20.2 sec (9.3-11.0)
== END 2019-05-05 02:11 ==
PROVIDERS: PCP Nurse Practitioner; Visit Provider Family Medicine
DX: I48.91 Unspecified atrial fibrillation (principal); Z79.01 Long term (current) use of anticoagulants
CPT/HCPCS: 36415; 85610

== ENCOUNTER 2019-05-13 01:18 | Outpatient (CLI) | payer BC, SELFPAY ==
[2019-05-13 13:31] LABS: INR 1.9 (0.9-1.1); Prothrombin Time 18.6 sec (9.3-11.0)
== END 2019-05-13 01:38 ==
PROVIDERS: PCP Nurse Practitioner; Visit Provider Family Medicine
DX: I48.91 Unspecified atrial fibrillation (principal); Z79.01 Long term (current) use of anticoagulants
CPT/HCPCS: 36415; 85610

== ENCOUNTER 2019-06-04 15:39 | Outpatient (CLI) | payer BC, SELFPAY ==
[2019-06-04 16:08] LABS: INR 2.6 (0.9-1.1); Prothrombin Time 25.9 sec (9.3-11.0)
== END 2019-06-04 15:59 ==
PROVIDERS: PCP Nurse Practitioner; Visit Provider Family Medicine
DX: I48.91 Unspecified atrial fibrillation (principal); Z79.01 Long term (current) use of anticoagulants
CPT/HCPCS: 36415; 85610

== ENCOUNTER 2019-07-12 09:22 | Emergency (ER) | payer BC, SELFPAY ==
[2019-07-12] VITALS (11 sets, daily range): BP systolic 120–144; BP diastolic 85–100; PULSE 89–106; RESP 20; O2SAT 93–97
[2019-07-12 10:23] LABS: Lactate 1.3 mmol/L (0.6-1.4)
[2019-07-12 10:24] LABS: Abs Immature Grans 0.05 k/cumm (0.0-0.09); Absolute Basophil Count 0.03 k/cumm (0.0-0.2); Absolute Eosinophil Count 0.15 k/cumm (0.0-0.7); Absolute Lymphocyte Count 1.56 k/cumm (1.2-3.4); Absolute Monocyte Count 0.92 k/cumm (0.11-0.7); Absolute Neutrophil Count 6.84 k/cumm (1.2-6.7); Basophils % 0.3; Eosinophils % 1.6; HCT 44.2 % (36.0-46.0); HGB 14.5 g/dL (12.0-15.5); Immature Grans % 0.5 %; Lymphocytes % 16.3; Mean Corp. HGB Concentration 32.8 g/dL (32.0-36.0); Mean Corpuscular Hemoglobin 29.3 pg (27.0-33.0); Mean Corpuscular Volume 89.3 fL (80-95); Monocytes % 9.6; Neutrophils % 71.7; Platelet Count 192 x1000/uL (130-400); RBC 4.95 m/cumm (4.00-5.20); RBC Distribution Width 15.6 % (11.7-14.6); White Blood Cell Count 9.55 k/cumm (4.4-10.8)
--- NOTE | 2019-07-12 10:25 | W.ED.GENAD ---
Discharge Plan Disposition Patient Disposition: HOME Condition: Stable Discharge Details Chief Complaint: RashLesion Clinical Impression: Abdominal wall cellulitis Primary Care Provider: Debra Lema ED Provider: Claudy Wick Home Meds and New Rx's Prescriptions: New cephalexin [Keflex] 500 mg capsule 500 mg PO QID 10 Days Qty: 40 RF: 0 doxycycline hyclate 100 mg tablet 100 mg PO BID Qty: 19 RF: 0 Continued rosuvastatin 5 mg tablet 5 mg PO QHS Qty: 30 RF: 11 diclofenac sodium 1 % gel 4 gm TP QID PRN (Reason: hip pain) 6 Days Qty: 100 RF: 11 metoprolol succinate 25 mg tablet extended release 24 hr 25 mg PO BID Qty: 180 RF: 3 hydrochlorothiazide 25 mg tablet 25 mg PO DAILY Qty: 90 RF: 3 albuterol sulfate [ProAir HFA] 8.5 GM HFA aerosol inhaler 2 puff Inhalation Q4H PRN Qty: 1 RF: 1 warfarin 5 mg tablet 5 - 10 mg PO DAILY RF: 0 acetaminophen [Tylenol Arthritis] 650 MG tablet extended release 1,300 mg PO PRN PRN (Reason: Pain) RF: 0 Discharge Instructions Instructions: Cellulitis (ED) Additional Instructions: Please drink plenty of fluid to stay hydrated and allow for plenty of rest. Take the antibiotics as prescribed. Be sure to complete the full course. Please contact your primary care physician to arrange follow-up. Call tomorrow to be seen early this week. Return to the ER for any worsening or new concerning symptoms. Referrals: Debra Lema, [employer] [Primary Care Provider] - Medical Decision Making 10:29 -- 64-year-old female here with abdominal wall cellulitis. Patient is tachycardic on arrival. Normotensive. She did have recent chills. No fever today. No fluctuance to suspect deep space infection. Plan to give cefepime 2 g IV. I will check labs including lactate and CBC. -- Labs reviewed and no leukocytosis. Lactate nl. Patient reassessed after IVF and HR improved. I had a lengthy discussion with the patient about treatment options. Plan will be for trial of oral antibiotics with close follow-up with PCP early this week. Cellulitis has been marked with skin marker. Plan to treat with Keflex and doxycycline. Patient understands she is to monitor infection closely. Disposition decision was made weighing the risks and benefits of hospitalization versus outpatient treatment, the risk for further decompensation, and the patient's wishes. The patient was stable and requested discharge. Prior to discharge, my usual and customary return precautions were reviewed with the patient - this included follow-up instructions and reason to return to the emergency department if condition worsens, does not improve as expected, or other new concerns arise. HPI General Mode of arrival: ambulatory. Date/Time Provider Initiated Documentation: 07/12/19 09:38. Limitations to Documentation: no limitations. Information obtained by: patient. HPI Narrative: 64-year-old female here with chief complaint of rash. Patient notes that she first noted a rash on her abdomen 2 days ago. Rash has persisted and significantly worsened. Rash is red and painful. Constant. No modifiers. She also had associated chills 2 days ago. She did not experience fever or chills yesterday or today. Patient denies known injury or bite. Related Data Home Medications Medication Instructions Recorded Confirmed acetaminophen [Tylenol Arthritis] 1,300 mg PO PRN PRN 08/25/12 07/12/19 albuterol sulfate [ProAir HFA] 2 puff INHALATION Q4H PRN #1 09/12/16 07/12/19 inhaler rosuvastatin 5 mg tablet 5 mg PO QHS #30 tab 08/20/18 07/12/19 metoprolol succinate 25 mg 25 mg PO BID #180 tab 12/17/18 07/12/19 tablet,extended release 24 hr diclofenac sodium 1 % topical gel 4 gm TP QID PRN 6 Days #100 gm 01/05/19 07/12/19 hydrochlorothiazide 25 mg tablet 25 mg PO DAILY #90 tab 03/31/19 07/12/19 warfarin 5 mg tablet 5 - 10 mg PO DAILY tab 03/31/19 07/12/19 cephalexin [Keflex] 500 mg PO QID 10 Days #40 cap 07/12/19 doxycycline hyclate 100 mg PO BID #19 tab 07/12/19 Previous Rx's Medication Instructions Recorded rosuvastatin 5 mg tablet 5 mg PO QHS #30 tab 08/20/18 metoprolol succinate 25 mg 25 mg PO BID #180 tab 12/17/18 tablet,extended release 24 hr diclofenac sodium 1 % topical gel 4 gm TP QID PRN 6 Days #100 gm 01/05/19 hydrochlorothiazide 25 mg tablet 25 mg PO DAILY #90 tab 03/31/19 cephalexin [Keflex] 500 mg PO QID 10 Days #40 cap 07/12/19 doxycycline hyclate 100 mg PO BID #19 tab 07/12/19 Allergies Allergy/AdvReac Type Severity Reaction Status Date / Time pravastatin AdvReac Intermediate Myalgias Unverified 07/12/19 09:35 fentanyl AdvReac Unverified 07/12/19 09:35 General Stated Complaint: RashLesion MARQUIS: 3 Review of Systems All systems reviewed & are unremarkable except as noted in HPI and below Constitutional Constitutional: Reports as per HPI Integumentary/Breasts Skin/Breast: Reports as per HPI [facility] Medical History Anticoagulated on warfarin (Acute) A-fib INR goal 2-3 Atrial fibrillation (Acute) Cholelithiasis without obstruction (Acute) Diverticulosis (Acute) Essential hypertension (Acute) Gastroesophageal reflux disease (Acute) Heart murmur (Acute) Hyperlipidemia (Acute) Lichenification (Acute) 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 Maternal Grandmother , 96 No problems noted. Other Alcohol abuse Social History Smoking/Tobacco Use Status: Former Tobacco Use Quit Date: 08/18/08 Tobacco: How many years used: 30 Alcohol Intake: current Alcohol Intake frequency: holidays/special occasions only Alcohol type: hard liquor Drug use: Never Substance use type: does not use Household members: children Pets and animals: Yes Pets and animals: cat(s) What is your relationship status?: never How often do you talk on the phone with friends or family?: decline to answer How often do you get together with friends or relatives?: decline to answer How often do you attend alevism or catholic services?: decline to answer Do you belong to any clubs or organized social groups?: decline to answer Panel score (0-1 are the most socially isolated patients): 0 What type of physical activity do you participate in: walking Duration: < 15 minutes/day Frequency: 3-4 times per week Aishwarya/Mosque: Zoroastrianism Special aishwarya needs: No Do you feel safe at home: Yes Do you feel safe in your relationship?: Yes Exam Const General: cooperative and no acute distress Nutritional Appearance: obese HENMT Mouth: moist mucous membranes Eyes Conjunctivae: normal conjunctivae Sclera: normal sclerae Resp Auscultation: clear to auscultation bilaterally, no rales, no rhonchi and no wheezes Cardio Jugular venous pressure: no JVD Rate: regular rate and not tachycardic Rhythm: regular rhythm GI Palpation: soft, not firm, no guarding, no masses, not rigid and nontender Back/Spine/Pelvis Back: No erythema Skin Rashes: rashes noted (Large central lower abdominal wall erythema well-circumscribed, no fluctuan) Neuro General: alert, awake and tone normal Extrem General: no edema Psych Appearance: grossly normal Course Vital Signs Vital signs: Vital Signs Pulse 106 H 07/12/19 09:31 Respiratory Rate 20 07/12/19 09:31 Blood Pressure 120/100 H 07/12/19 09:31 Pulse Oximetry 95 07/12/19 09:31 Pulse 106 H 07/12/19 09:31 Respiratory Rate 20 07/12/19 09:31 Respiratory Effort Non-Labored 07/12/19 09:40 Blood Pressure 120/100 H 07/12/19 09:31 Blood Pressure Position Sitting 07/12/19 09:31 Pulse Oximetry 95 07/12/19 09:31 Oxygen Delivery Method Room Air 07/12/19 09:31 Oxygen Flow Rate 0 07/12/19 09:31 Pain Level 5 07/12/19 09:40 Lab/Test Results Lab/Test Results: Laboratory Tests Range/Units 07/12/19 07/12/19 10:10 10:10 WBC (4.4-10.8) k/cumm 9.55 RBC (4.00-5.20) m/cumm 4.95 Hgb (12.0-15.5) g/dL 14.5 Hct (36.0-46.0) % 44.2 MCV (80-95) fL 89.3 MCH (27.0-33.0) pg 29.3 MCHC (32.0-36.0) g/dL 32.8 RDW (11.7-14.6) % 15.6 H Plt Count (130-400) x1000/uL 192 MPV (8.0-11.0) fL 11.0 Immature Gran % % 0.5 Neutrophils % 71.7 Lymphocytes % 16.3 Monocytes % 9.6 Eosinophils % 1.6 Basophils % 0.3 Absolute Neutrophils (1.2-6.7) k/cumm 6.84 H Absolute Lymphocytes (1.2-3.4) k/cumm 1.56 Absolute Monocytes (0.11-0.7) k/cumm 0.92 H Absolute Eosinophils (0.0-0.7) k/cumm 0.15 Absolute Basophils (0.0-0.2) k/cumm 0.03 Lactate (0.6-1.4) mmol/L 1.3
[2019-07-12 10:40] LABS: ALT 19 U/L (14-59); AST 21 U/L (15-37); Albumin 3.5 g/dL (3.4-5.0); Alkaline Phosphatase 74 U/L (46-116); Anion Gap 8.5 mmol/L (3-11); BUN 18 mg/dL (7-18); Bilirubin, Total 0.5 mg/dL (0.2-1.0); CO2 32.5 mmol/L (21.0-32.0); CREATININE 1.07 mg/dL (0.55-1.02); Calcium 9.4 mg/dL (8.5-10.1); Chloride 100 mmol/L (98-107); Estimated GFR 51.47 (mL/min/1.73m2); Glucose 131 mg/dL (74-106); Potassium 3.4 mmol/L (3.5-5.1); Sodium 141 mmol/L (136-145); Total Protein 8.2 g/dL (6.4-8.2)
[2019-07-12] MEDS: CEFEPIME 2 GM in Normal Saline 100 ML IVPB (10:40)
[2019-07-12] MEDS: Normal Saline 500 ML 1000 ML IV (11:23)
[2019-07-12] MEDS: Doxycycline Hyclate 100 MG CAP PO (11:29)
[2019-07-12 11:51] LABS: INR 1.9 (0.9-1.1); Prothrombin Time 19.1 sec (9.3-11.0)
--- NOTE | 2019-07-12 14:25 | NUR.NOTE ---
Referral faxed to Rashid Lema.Nursing Note:
== END 2019-07-12 12:15 | disposition home or self-care (01) ==
PROVIDERS: Emergency Provider Student in an Organized Health Care Education/Training Program; PCP Nurse Practitioner
DX: L03.311 Cellulitis of abdominal wall (principal); Z79.4 Long term (current) use of insulin; I10 Essential (primary) hypertension
CPT/HCPCS: 36415; 80053; 96361; 96365; 99284; 83605; 85025; 85610

== ENCOUNTER 2019-07-28 02:41 | Outpatient (CLI) | payer BC, SELFPAY ==
--- NOTE | 2019-07-28 11:32 | DI.CTLCSR_ITS ---
EXAM: CT CHEST LUNG CANCER SCREEN CLINICAL HISTORY: SCREENING FOR LUNG CANCER, Z87.891 PERS HX NICOTINE DEPENDENCE TECHNIQUE: Low-dose noncontrast screening protocol. COMPARISON: No exams were available for comparison FINDINGS: There is biatrial and left ventricular enlargement. Mitral valve calcifications and aortic calcificat ions as well as coronary artery calcifications are seen. There is mild calcification at the aortic ar ch. No pleural or pericardial effusions or adenopathy is seen. No infiltrates are seen. No suspicious pulmonary nodules are identified. IMPRESSION: Lung rads category 1, negative. Annual low-dose screening chest CT is recommended. Lung RADS Cat 1 - Negative: No nodules and definitely benign nodules
== END 2019-07-28 03:01 ==
PROVIDERS: PCP Nurse Practitioner; Visit Provider Nurse Practitioner
DX: Z12.2 Encounter for screening for malignant neoplasm of respiratory organs (principal); Z87.891 Personal history of nicotine dependence; I70.0 Atherosclerosis of aorta; I25.10 Atherosclerotic heart disease of native coronary artery without angina pectoris
CPT/HCPCS: G0297

== ENCOUNTER 2019-09-11 01:38 | Outpatient (CLI) | payer BC, SELFPAY ==
[2019-09-11 08:30] LABS: INR 2.9 (0.9-1.1); Prothrombin Time 28.4 sec (9.3-11.0)
[2019-09-11 08:55] LABS: Hemoglobin A1C 6.2 % (3.8-5.6)
[2019-09-11 09:06] LABS: Calculated LDL 62 mg/dL (<100); Cholesterol 138 mg/dL (<200); HDL Cholesterol 41 mg/dL (40-60); Triglyceride 178 mg/dL (<150)
[2019-09-11 09:07] LABS: ALT 26 U/L (14-59); AST 20 U/L (15-37); Albumin 3.6 g/dL (3.4-5.0); Alkaline Phosphatase 66 U/L (46-116); Anion Gap 6.5 mmol/L (3-11); BUN 16 mg/dL (7-18); Bilirubin, Total 0.5 mg/dL (0.2-1.0); C-Reactive Protein 0.95 mg/dL (0.0-0.3); CO2 32.5 mmol/L (21.0-32.0); CREATININE 1.07 mg/dL (0.55-1.02); Calcium 8.9 mg/dL (8.5-10.1); Chloride 101 mmol/L (98-107); Estimated GFR 51.47 (mL/min/1.73m2); Glucose 119 mg/dL (74-106); Potassium 3.4 mmol/L (3.5-5.1); Sodium 140 mmol/L (136-145); Total Protein 7.2 g/dL (6.4-8.2); Uric Acid 6.7 mg/dL (2.6-6.0)
[2019-09-14 12:44] LABS: ANA Interpretation Positive (Negative); ANA Titer Pattern 1:640 Speckled
== END 2019-09-11 01:58 ==
PROVIDERS: Nurse Practitioner Family; PCP Nurse Practitioner; Visit Provider Family Medicine
DX: E78.5 Hyperlipidemia, unspecified (principal); Z13.1 Encounter for screening for diabetes mellitus; Z79.01 Long term (current) use of anticoagulants; M12.9 Arthropathy, unspecified
CPT/HCPCS: 36415; 80053; 80061; 83036; 84550; 85610; 86038; 86140

== ENCOUNTER 2019-10-30 03:15 | Outpatient (CLI) | payer BC, MEDICARE, SELFPAY ==
[2019-10-30 15:10] LABS: Abs Immature Grans 0.01 k/cumm (0.0-0.09); Absolute Basophil Count 0.03 k/cumm (0.0-0.2); Absolute Eosinophil Count 0.26 k/cumm (0.0-0.7); Absolute Lymphocyte Count 1.48 k/cumm (1.2-3.4); Absolute Neutrophil Count 5.86 k/cumm (1.2-6.7); Basophils % 0.4; Eosinophils % 3.2; HCT 45.8 % (36.0-46.0); HGB 14.9 g/dL (12.0-15.5); Immature Grans % 0.1 %; Lymphocytes % 18.2; Mean Corp. HGB Concentration 32.5 g/dL (32.0-36.0); Mean Corpuscular Hemoglobin 28.8 pg (27.0-33.0); Mean Corpuscular Volume 88.6 fL (80-95); Mean Platelet Volume 11.3 fL (8.0-11.0); Monocytes % 6.1; Platelet Count 224 x1000/uL (130-400); RBC 5.17 m/cumm (4.00-5.20); RBC Distribution Width 14.8 % (11.7-14.6); White Blood Cell Count 8.14 k/cumm (4.4-10.8)
[2019-10-30 15:27] LABS: INR 2.8 (0.9-1.1); Prothrombin Time 27.2 sec (9.3-11.0)
[2019-10-30 16:07] LABS: ALT 26 U/L (14-59); AST 24 U/L (15-37); Albumin 4.2 g/dL (3.4-5.0); Alkaline Phosphatase 78 U/L (46-116); Anion Gap 7.6 mmol/L (3-11); BUN 24 mg/dL (7-18); Bilirubin, Total 0.4 mg/dL (0.2-1.0); C-Reactive Protein 1.16 mg/dL (0.0-0.3); CO2 32.4 mmol/L (21.0-32.0); CREATININE 1.21 mg/dL (0.55-1.02); Calcium 9.5 mg/dL (8.5-10.1); Chloride 98 mmol/L (98-107); Estimated GFR 44.66 (mL/min/1.73m2); Glucose 89 mg/dL (74-106); Potassium 3.1 mmol/L (3.5-5.1); Sodium 138 mmol/L (136-145); Total Protein 8.2 g/dL (6.4-8.2); Uric Acid 8.6 mg/dL (2.6-6.0)
[2019-11-03 12:28] LABS: dsDNA Ab, IgG <12.3 IU/mL (<30.0)
[2019-11-03 15:03] LABS: RNP Ab, IgG 0.4 Units (<20.0); SS-A Antibody 0.6 Units (<20.0); SS-B (La) Ab, IgG 0.5 Units (<20.0); Sm (Smith) Ab, IgG 0.4 Units (<20.0)
== END 2019-10-30 03:35 ==
PROVIDERS: Nurse Practitioner Family; PCP Nurse Practitioner; Visit Provider Family Medicine
DX: I48.91 Unspecified atrial fibrillation (principal); Z79.01 Long term (current) use of anticoagulants; R76.8 Other specified abnormal immunological findings in serum; M47.817 Spondylosis without myelopathy or radiculopathy, lumbosacral region; M25.50 Pain in unspecified joint
CPT/HCPCS: 36415; 80053; 84550; 85025; 85610; 86140; 86225; 86235

== ENCOUNTER 2019-11-09 01:18 | Outpatient (CLI) | payer BC, MEDICARE, SELFPAY ==
--- NOTE | 2019-11-09 07:15 | DI.MAMMO_ITS ---
EXAM: MAMMO SCREENING CLINICAL HISTORY: [id number] TECHNIQUE: Mammograms were interpreted according to the usual protocol including computer analysis w [employer] CAD system, tomosynthesis and C-view imaging. COMPARISON: 2009 through 2018 FINDINGS: The breasts are composed of mainly fatty density , Breast Density category A. No suspicious masses or suspicious microcalcifications are seen. No skin thickening or abnormal axillary lymph nodes are seen. There has been no significant change from prior exams. IMPRESSION: BI-RADS category 1, negative. Yearly screening mammography is recommended. Breast density category A, fatty density. Density:
== END 2019-11-09 01:38 ==
PROVIDERS: PCP Nurse Practitioner; Visit Provider Nurse Practitioner
DX: Z12.31 Encounter for screening mammogram for malignant neoplasm of breast (principal)
CPT/HCPCS: 77063; 77067

== ENCOUNTER 2019-12-22 02:13 | Outpatient (CLI) | payer BC, SELFPAY ==
[2019-12-22 09:44] LABS: Abs Immature Grans 0.01 k/cumm (0.0-0.09); Absolute Basophil Count 0.03 k/cumm (0.0-0.2); Absolute Lymphocyte Count 1.35 k/cumm (1.2-3.4); Absolute Monocyte Count 0.43 k/cumm (0.11-0.7); Absolute Neutrophil Count 3.94 k/cumm (1.2-6.7); Basophils % 0.5; HCT 45.7 % (36.0-46.0); HGB 14.9 g/dL (12.0-15.5); Immature Grans % 0.2 %; Lymphocytes % 22.3; Mean Corp. HGB Concentration 32.6 g/dL (32.0-36.0); Mean Corpuscular Hemoglobin 28.2 pg (27.0-33.0); Mean Corpuscular Volume 86.6 fL (80-95); Mean Platelet Volume 11.4 fL (8.0-11.0); Monocytes % 7.1; Neutrophils % 64.9; Platelet Count 189 x1000/uL (130-400); RBC 5.28 m/cumm (4.00-5.20); RBC Distribution Width 14.8 % (11.7-14.6); White Blood Cell Count 6.06 k/cumm (4.4-10.8)
[2019-12-22 10:04] LABS: INR 2.7 (0.9-1.1); Prothrombin Time 26.3 sec (9.3-11.0)
[2019-12-24 13:26] LABS: dsDNA Ab, IgG <12.3 IU/mL (<30.0)
[2019-12-24 14:34] LABS: RNP Ab, IgG 1.7 Units (<20.0); SS-A Antibody 4.9 Units (<20.0); SS-B (La) Ab, IgG 2.4 Units (<20.0); Sm (Smith) Ab, IgG 2.5 Units (<20.0)
== END 2019-12-22 02:33 ==
PROVIDERS: Nurse Practitioner Family; PCP Nurse Practitioner; Visit Provider Family Medicine
DX: R76.8 Other specified abnormal immunological findings in serum (principal); M25.50 Pain in unspecified joint; Z79.01 Long term (current) use of anticoagulants
CPT/HCPCS: 36415; 85025; 85610; 86225; 86235

== ENCOUNTER 2020-02-04 03:10 | Outpatient (CLI) | payer BC, SELFPAY ==
[2020-02-04 15:02] LABS: Prothrombin Time 45.9 sec (9.3-11.0)
[2020-02-04 15:19] LABS: INR 4.8 (0.9-1.1)
== END 2020-02-04 03:30 ==
PROVIDERS: PCP Nurse Practitioner; Visit Provider Family Medicine
DX: Z79.01 Long term (current) use of anticoagulants (principal)
CPT/HCPCS: 36415; 85610

== ENCOUNTER 2020-02-09 03:31 | Outpatient (CLI) | payer BC, SELFPAY ==
[2020-02-09 10:41] LABS: INR 1.5 (0.9-1.1); Prothrombin Time 14.9 sec (9.3-11.0)
== END 2020-02-09 03:51 ==
PROVIDERS: Family Medicine; PCP Nurse Practitioner; Visit Provider Nurse Practitioner
DX: Z79.01 Long term (current) use of anticoagulants (principal)
CPT/HCPCS: 36415; 85610

== ENCOUNTER 2020-02-15 02:19 | Outpatient (CLI) | payer BC, SELFPAY ==
[2020-02-15 12:13] LABS: INR 2.3 (0.9-1.1); Prothrombin Time 22.7 sec (9.3-11.0)
== END 2020-02-15 02:39 ==
PROVIDERS: PCP Nurse Practitioner; Visit Provider Family Medicine
DX: Z79.01 Long term (current) use of anticoagulants (principal)
CPT/HCPCS: 36415; 85610

== ENCOUNTER 2020-02-25 05:09 | Outpatient (CLI) | payer BC, SELFPAY ==
[2020-02-25 15:33] LABS: INR 4.2 (0.9-1.1)
== END 2020-02-25 05:29 ==
PROVIDERS: PCP Nurse Practitioner; Visit Provider Family Medicine
DX: Z79.01 Long term (current) use of anticoagulants (principal)
CPT/HCPCS: 36415; 85610

== ENCOUNTER 2020-03-03 01:36 | Outpatient (CLI) | payer BC, SELFPAY ==
[2020-03-03 15:23] LABS: INR 2.7 (0.9-1.1); Prothrombin Time 26.9 sec (9.3-11.0)
== END 2020-03-03 01:56 ==
PROVIDERS: PCP Nurse Practitioner; Visit Provider Family Medicine
DX: Z79.01 Long term (current) use of anticoagulants (principal)
CPT/HCPCS: 36415; 85610

== ENCOUNTER 2020-03-14 03:23 | Outpatient (CLI) | payer BC, SELFPAY ==
[2020-03-14 10:52] LABS: INR 3.1 (0.9-1.1); Prothrombin Time 30.2 sec (9.3-11.0)
== END 2020-03-14 03:43 ==
PROVIDERS: Family Medicine; PCP Nurse Practitioner; Visit Provider Nurse Practitioner
DX: Z79.01 Long term (current) use of anticoagulants (principal)
CPT/HCPCS: 36415; 85610

== ENCOUNTER 2020-03-22 02:40 | Outpatient (CLI) | payer BC, SELFPAY ==
[2020-03-22 13:47] LABS: INR 3.3 (0.9-1.1)
== END 2020-03-22 03:00 ==
PROVIDERS: PCP Nurse Practitioner; Visit Provider Nurse Practitioner
DX: Z79.01 Long term (current) use of anticoagulants (principal)
CPT/HCPCS: 36415; 85610

== ENCOUNTER 2020-04-07 02:15 | Outpatient (CLI) | payer BC, SELFPAY ==
[2020-04-07 15:48] LABS: INR 2.6 (0.9-1.1); Prothrombin Time 25.7 sec (9.3-11.0)
== END 2020-04-07 02:35 ==
PROVIDERS: PCP Nurse Practitioner; Visit Provider Nurse Practitioner
DX: I48.21 Permanent atrial fibrillation (principal); Z79.01 Long term (current) use of anticoagulants
CPT/HCPCS: 36415; 85610

== ENCOUNTER 2020-05-17 02:08 | Outpatient (CLI) | payer BC, SELFPAY ==
[2020-05-17 09:30] LABS: INR 2.2 (0.9-1.1); Prothrombin Time 21.9 sec (9.3-11.0)
== END 2020-05-17 02:28 ==
PROVIDERS: PCP Nurse Practitioner; Visit Provider Nurse Practitioner
DX: I48.21 Permanent atrial fibrillation (principal); Z79.01 Long term (current) use of anticoagulants
CPT/HCPCS: 36415; 85610

== ENCOUNTER 2020-06-13 02:29 | Outpatient (CLI) | payer BC, SELFPAY ==
[2020-06-13 13:06] LABS: INR 2.5 (0.9-1.1); Prothrombin Time 24.3 sec (9.3-11.0)
== END 2020-06-13 02:49 ==
PROVIDERS: PCP Nurse Practitioner; Visit Provider Nurse Practitioner
DX: I48.91 Unspecified atrial fibrillation (principal); Z79.01 Long term (current) use of anticoagulants
CPT/HCPCS: 36415; 85610

== ENCOUNTER 2020-07-19 02:04 | Outpatient (CLI) | payer BC, SELFPAY ==
[2020-07-19 12:55] LABS: CREATININE 1.1 mg/dL (0.55-1.02); Calculated LDL 97 mg/dL (<100); Cholesterol 176 mg/dL (<200); Estimated GFR 49.69 (mL/min/1.73m2); HDL Cholesterol 54 mg/dL (40-60); Triglyceride 129 mg/dL (<150)
[2020-07-19 12:59] LABS: INR 1.7 (0.9-1.1); Prothrombin Time 16.8 sec (9.3-11.0)
== END 2020-07-19 02:05 | disposition home or self-care (01) ==
LOC: LOS 02:05
PROVIDERS: PCP Nurse Practitioner; Visit Provider Nurse Practitioner
DX: E78.2 Mixed hyperlipidemia (principal); I10 Essential (primary) hypertension; R73.03 Prediabetes; I48.91 Unspecified atrial fibrillation; Z79.01 Long term (current) use of anticoagulants
CPT/HCPCS: 36415; 80061; 82565; 83036; 84132; 85610

== ENCOUNTER 2020-07-26 02:54 | Outpatient (CLI) | payer BC, SELFPAY ==
[2020-07-26 12:44] LABS: INR 1.8 (0.9-1.1); Prothrombin Time 17.9 sec (9.3-11.0)
== END 2020-07-26 02:55 | disposition home or self-care (01) ==
LOC: LOS 02:54
PROVIDERS: PCP Nurse Practitioner; Visit Provider Nurse Practitioner
DX: I48.91 Unspecified atrial fibrillation (principal); Z79.01 Long term (current) use of anticoagulants
CPT/HCPCS: 36415; 85610

== ENCOUNTER 2020-08-01 04:19 | Outpatient (CLI) | payer BC, SELFPAY ==
[2020-08-01 08:59] LABS: INR 1.8 (0.9-1.1); Prothrombin Time 17.7 sec (9.3-11.0)
== END 2020-08-01 04:20 | disposition home or self-care (01) ==
LOC: LBO 04:19
PROVIDERS: PCP Nurse Practitioner; Visit Provider Nurse Practitioner
DX: I48.91 Unspecified atrial fibrillation (principal); Z79.01 Long term (current) use of anticoagulants
CPT/HCPCS: 36415; 85610

== ENCOUNTER 2020-08-09 02:41 | Outpatient (CLI) | payer BC, SELFPAY ==
[2020-08-09 12:49] LABS: INR 1.8 (0.9-1.1); Prothrombin Time 17.9 sec (9.3-11.0)
== END 2020-08-09 02:42 | disposition home or self-care (01) ==
LOC: LOS 02:41
PROVIDERS: PCP Nurse Practitioner; Visit Provider Nurse Practitioner
DX: I48.91 Unspecified atrial fibrillation (principal); Z79.01 Long term (current) use of anticoagulants
CPT/HCPCS: 36415; 85610

== ENCOUNTER 2020-08-15 03:29 | Outpatient (CLI) | payer BC, SELFPAY ==
[2020-08-16 14:32] LABS: COVID-19 RT-PCR UVMMC Result Negative (Negative)
== END 2020-08-15 03:30 | disposition home or self-care (01) ==
LOC: LBO 03:29
PROVIDERS: PCP Nurse Practitioner; Visit Provider Nurse Practitioner
DX: Z20.822 Contact with and (suspected) exposure to COVID-19 (principal)
CPT/HCPCS: U0003

== ENCOUNTER 2020-08-17 04:36 | Outpatient (CLI) | payer BC, SELFPAY ==
[2020-08-17 12:43] LABS: INR 2.5 (0.9-1.1)
== END 2020-08-17 04:37 | disposition home or self-care (01) ==
LOC: LOS 04:36
PROVIDERS: PCP Nurse Practitioner; Visit Provider Nurse Practitioner
DX: I48.91 Unspecified atrial fibrillation (principal); Z79.01 Long term (current) use of anticoagulants
CPT/HCPCS: 36415; 85610

== ENCOUNTER 2020-09-13 08:34 | Outpatient (CLI) | payer BC, SELFPAY ==
[2020-09-14 11:19] LABS: COVID-19 RT-PCR UVMMC Result Negative (Negative)
== END 2020-09-13 08:35 | disposition home or self-care (01) ==
LOC: LBO 08:35
PROVIDERS: PCP Nurse Practitioner
DX: Z20.822 Contact with and (suspected) exposure to COVID-19 (principal)
CPT/HCPCS: U0003

== ENCOUNTER 2020-09-21 03:44 | Outpatient (CLI) | payer BC, SELFPAY ==
[2020-09-21 15:07] LABS: INR 3.8 (0.9-1.1); Prothrombin Time 37.2 sec (9.3-11.0)
== END 2020-09-21 03:45 | disposition home or self-care (01) ==
PROVIDERS: PCP Nurse Practitioner; Visit Provider Nurse Practitioner
DX: I48.91 Unspecified atrial fibrillation (principal); Z79.01 Long term (current) use of anticoagulants
CPT/HCPCS: 36415; 85610

== ENCOUNTER 2020-09-27 02:15 | Outpatient (CLI) | payer BC, SELFPAY ==
[2020-09-27 13:08] LABS: INR 2.2 (0.9-1.1)
== END 2020-09-27 02:16 | disposition home or self-care (01) ==
LOC: LOS 02:15
PROVIDERS: PCP Nurse Practitioner; Visit Provider Nurse Practitioner
DX: I48.91 Unspecified atrial fibrillation (principal); Z79.01 Long term (current) use of anticoagulants
CPT/HCPCS: 36415; 85610

== ENCOUNTER 2020-10-25 02:45 | Outpatient (CLI) | payer BC, SELFPAY ==
[2020-10-25 12:52] LABS: INR 3.7 (0.9-1.1); Prothrombin Time 35.9 sec (9.3-11.0)
== END 2020-10-25 02:46 | disposition home or self-care (01) ==
PROVIDERS: PCP Nurse Practitioner; Visit Provider Nurse Practitioner
DX: I48.91 Unspecified atrial fibrillation (principal); Z79.01 Long term (current) use of anticoagulants
CPT/HCPCS: 36415; 85610

== ENCOUNTER 2020-11-01 03:50 | Outpatient (CLI) | payer BC, SELFPAY ==
[2020-11-01 11:44] LABS: Prothrombin Time 33.6 sec (9.3-11.0)
[2020-11-01 11:59] LABS: INR 3.4 (0.9-1.1)
== END 2020-11-01 03:51 | disposition home or self-care (01) ==
LOC: LBO 03:50
PROVIDERS: PCP Nurse Practitioner; Visit Provider Nurse Practitioner
DX: I48.91 Unspecified atrial fibrillation (principal); Z79.01 Long term (current) use of anticoagulants
CPT/HCPCS: 36415; 85610

== ENCOUNTER 2020-11-08 01:46 | Outpatient (CLI) | payer BC, SELFPAY ==
[2020-11-10 14:03] LABS: COVID-19 RT-PCR UVMMC Result Negative (Negative)
== END 2020-11-08 01:47 | disposition home or self-care (01) ==
LOC: LBO 01:46
PROVIDERS: PCP Family Medicine; Visit Provider Nurse Practitioner
DX: Z20.822 Contact with and (suspected) exposure to COVID-19 (principal)
CPT/HCPCS: U0003

== ENCOUNTER 2020-11-08 01:54 | Outpatient (CLI) | payer BC, SELFPAY ==
[2020-11-08 12:54] LABS: INR 2.6 (0.9-1.1); Prothrombin Time 25.6 sec (9.3-11.0)
== END 2020-11-08 01:55 | disposition home or self-care (01) ==
LOC: LOS 01:54
PROVIDERS: PCP Family Medicine; Visit Provider Nurse Practitioner
DX: I48.91 Unspecified atrial fibrillation (principal); Z79.01 Long term (current) use of anticoagulants
CPT/HCPCS: 36415; 85610

== ENCOUNTER 2020-12-20 11:52 | Outpatient (CLI) | payer BC, SELFPAY ==
[2020-12-20 12:59] LABS: HCT 43.1 % (36.0-46.0); HGB 14.1 g/dL (11.2-15.7); MCH 28.1 pg (27.0-33.0); MCHC 32.7 % (32.0-36.0); MCV 85.9 fL (80-95); Platelet Count 273 10^3/uL (130-400); RBC 5.02 10^6/uL (3.93-5.22); RDW 15.3 % (11.7-14.6); RDW-SD 47.3 fL; WBC 10.17 10^3/uL (4.4-10.8)
[2020-12-20 13:41] LABS: Prothrombin Time > 83.4 sec (9.3-11.0)
[2020-12-20 13:44] LABS: INR > 8.8 (0.9-1.1)
== END 2020-12-20 11:53 | disposition home or self-care (01) ==
PROVIDERS: PCP Family Medicine; Visit Provider Family Medicine
DX: R23.8 Other skin changes (principal); I10 Essential (primary) hypertension; I48.91 Unspecified atrial fibrillation; Z79.01 Long term (current) use of anticoagulants; Z87.891 Personal history of nicotine dependence
CPT/HCPCS: 36415; 85027; 85610

== ENCOUNTER 2020-12-20 12:05 | Outpatient (REF) | payer BC, SELFPAY ==
[2020-12-21 13:46] LABS: C Diff PCR Negative (Negative)
[2020-12-22 11:12] LABS: Campylobacter PCR Negative (Negative); Salmonella PCR Negative (Negative); Shiga Toxin PCR Negative (Negative); Shigella/Enteroinvasive Ecoli Negative (Negative)
== END 2020-12-20 12:06 | disposition home or self-care (01) ==
LOC: LBN 12:05
PROVIDERS: PCP Family Medicine; Visit Provider Family Medicine
DX: R19.7 Diarrhea, unspecified (principal)
CPT/HCPCS: 87493; 87505

== ENCOUNTER 2020-12-26 10:49 | Outpatient (REF) | payer BC, SELFPAY ==
[2020-12-30 13:27] LABS: Norovirus G1 PCR Negative (Negative); Norovirus G2 PCR Negative (Negative)
== END 2020-12-26 10:50 | disposition home or self-care (01) ==
LOC: LBN 10:49
PROVIDERS: PCP Family Medicine; Visit Provider Family Medicine
DX: R19.7 Diarrhea, unspecified (principal)
CPT/HCPCS: 87329; 87798; 87177

== ENCOUNTER 2021-02-07 01:49 | Outpatient (CLI) | payer BC, SELFPAY ==
--- NOTE | 2021-02-07 06:45 | DI.CTLCSR_ITS ---
Exam(s) CT CHEST LUNG CANCER SCREEN EXAM: CT CHEST LUNG CANCER SCREEN CLINICAL HISTORY: Screening for lung cancer,FORMER SMOKER, Z87.891 TECHNIQUE: Imaging Protocol: Axial computed tomography images with coronal and sagittal reformatted images were created and reviewed COMPARISON: CT CT CHEST LUNG CANCER SCREEN from 07/28/2019 FINDINGS: Tracheobronchial tree: Patent where visualized. Mediastinum and Rachel: No dominant adenopathy or fluid collection. Pulmonary parenchyma: No consolidation or dominant measurable mass. No architectural distortion. Lung Nodules: No suspicious nodules. Pleura: No effusion or pneumothorax. Heart: The heart is enlarged, unchanged.. coronary artery calcifications and mitral valve are seen. Aorta: Thoracic aorta non-dilated. Upper abdomen: Unremarkable. Status post cholecystectomy. Bones: Degenerative disc changes. No compression fractures. IMPRESSION: No suspicious pulmonary nodules. Lung RADS Cat 1 - Negative: No nodules and definitely benign nodules Lung-RADS 1.0 CATEGORIES: Category 0 - Prior chest CT exam(s) being located for comparison. Category 1 - Annual screening in 12 months. No nodules or definitely benign nodules. Category 2 - Annual screening in 12 months. Benign appearance. Nodules with low likelihood of becomin g active cancer. Category 3 - 6-month follow-up. Probably benign. Short-term follow-up suggested. Nodules with low lik elihood of becoming active cancer. Category 4A - 3-month follow-up and CT/PET if >8 mm in size. Suspicious finding. Findings which requi re additional testing. Category 4B - Findings which require additional testing and tissue sampling. Modifier S- Potentially clinically significant findings (non lung cancer) RADIATION DOSE DELIVERED: 74.2mGy.cm Total DLP 1.84mGy CTDIvol DATA REPOSITORY: All CT scans at this facility are submitted to the National Radiology Data Registry (NRDR) Dose Index Registry (DIR) with the [employer] (ACR). RADIATION OPTIMIZATION: All CT scans at this facility use at least one of these dose optimization te chniques: automated exposure control; mA and/or kV adjustment per patient size (includes targeted exa ms where dose is matched to clinical indication); or iterative reconstruction.
--- NOTE | 2021-02-07 06:45 | DI.MAMMO_ITS ---
Exam(s) MAMMO SCREENING EXAM: MAMMO SCREENING CLINICAL HISTORY: screening,Z12.39 TECHNIQUE: Mammograms were interpreted according to the usual protocol including computer analysis w [employer] CAD system, tomosynthesis and C-view imaging. COMPARISON: 2012 through 2019 FINDINGS: The breasts are composed of mainly fatty density , Breast Density category A. Right breast: New elongated density in the posteromedial right breast. No suspicious calcifications or architectural distortion. Left breast: No suspicious masses or suspicious microcalcifications are seen. No skin thickening or abnormal axillary lymph nodes are seen. There has been no significant change from prior exams. IMPRESSION: Right breast: BI-RADS Cat 0 - Assessment Incomplete: Need additional imaging evaluation. Spot compre ssion views and ultrasound is requested of the posteromedial right breast. Left breast: Yearly screening mammography is recommended. Breast Density - Category A, fatty density. .
== END 2021-02-07 02:09 ==
PROVIDERS: PCP Family Medicine; Visit Provider Family Medicine
DX: Z12.31 Encounter for screening mammogram for malignant neoplasm of breast (principal); Z87.891 Personal history of nicotine dependence; Z12.2 Encounter for screening for malignant neoplasm of respiratory organs; R92.8 Other abnormal and inconclusive findings on diagnostic imaging of breast
CPT/HCPCS: 71271; 77063; 77067

== ENCOUNTER 2021-02-28 02:19 | Outpatient (CLI) | payer BC, SELFPAY ==
--- NOTE | 2021-02-28 | DI.MAMMO_ITS ---
Exam(s) MG MAMMO SCREEN CALL BACK UNI US BREAST RT LIMITED EXAM: MG MAMMO SCREEN CALL BACK UNI and U/S breast RT limited CLINICAL HISTORY: F/U MAMMO, NEW ELONGATED DENSITY POSTEROMEDIAL RT BREAST. TECHNIQUE: Craniocaudal and mediolateral oblique Full Field Digital Mammography views of the right b reast with Computer Aided Diagnosis followed by Tomosynthesis and right breast ultrasound. COMPARISON: Priors available for comparison. FINDINGS: Mammography/Tomosynthesis: Masses/Architectural Distortion: There is a persistent ovoid density in the medial right breast. No associated microcalcifications are seen. Microcalcifictions: No suspicious pleomorphic-type are seen. Skin Thickening/Nipple Retraction: None. Right breast US: Echotexture: Normal appearance of the glandular tissue. Shadowing: No suspicious foci. Cyst: None. Solid lesions: There is a 1 x 0.6 x 0.9 cm hyperechoic mass at the 2 o'clock position of the right br east 14 cm from the nipple. Sonographically this would be consistent with a lipoma. No other cystic or solid masses are seen sonographically. Ductal dilation: None. IMPRESSION: 1. No definite evidence for malignancy at this time. 2. A 3 month follow-up right mammogram is recommended for re-evaluation. 3. The findings were discussed with the patient on the date of the examination. BI-RADS Category 3 - Probably Benign Finding: Recommend follow-up imaging in 3 months Breast Density - Category A - Almost entirely fatty Breast density Category C or D implies that the patient has dense breast tissue. Dense breast tissue can make it harder to find cancer on a mammogram. Dense breast tissue is also associated with an incr eased risk of breast cancer. This information about the result of the mammogram report was provided to the patient to raise their awareness. Use this report when you speak with the patient about their risks for breast cancer, which includes their family history. At that time, you may recommend additional screening tests (Ultrasoun d or MRI) as these tests may add significant information. A negative radiographic report should not delay biopsy if a dominant or clinically suspicious mass is present. Up to ten percent of cancers are not identified on mammography. A negative report may reinforce clinical impression. Adenosis and dense breasts may obscure an underlying neoplasm. False positive reports average 6 to 10%. Patient will receive a letter notifying them of these results.
== END 2021-02-28 02:39 ==
PROVIDERS: PCP Family Medicine; Visit Provider Family Medicine
DX: R92.8 Other abnormal and inconclusive findings on diagnostic imaging of breast (principal); N63.12 Unspecified lump in the right breast, upper inner quadrant
CPT/HCPCS: 76642; 77063; 77067

== ENCOUNTER 2021-03-08 03:36 | Outpatient (CLI) | payer BC, SELFPAY ==
[2021-03-08 19:15] LABS: COVID-19 RT-PCR UVMMC Result Negative (Negative)
== END 2021-03-08 03:37 | disposition home or self-care (01) ==
LOC: LBO 03:36
PROVIDERS: PCP Family Medicine; Visit Provider Nurse Practitioner Family
DX: Z20.822 Contact with and (suspected) exposure to COVID-19 (principal)
CPT/HCPCS: U0003

== ENCOUNTER 2021-05-15 01:57 | Outpatient (CLI) | payer BC, SELFPAY ==
[2021-05-16 03:00] LABS: COVID-19 RT-PCR UVMMC Result Negative (Negative)
== END 2021-05-15 01:58 | disposition home or self-care (01) ==
LOC: LBO 01:57
PROVIDERS: PCP Family Medicine; Visit Provider Nurse Practitioner Family
DX: Z20.822 Contact with and (suspected) exposure to COVID-19 (principal)
CPT/HCPCS: U0003

== ENCOUNTER 2021-05-16 10:41 | Outpatient (REF) | payer BC, SELFPAY ==
[2021-05-16 14:26] LABS: HGB 13.5 g/dL (11.2-15.7); MCH 28.5 pg (27.0-33.0); MCHC 32.1 % (32.0-36.0); MCV 88.6 fL (80-95); MPV 12.2 fL (8.0-11.0); Platelet Count 236 10^3/uL (130-400); RBC 4.74 10^6/uL (3.93-5.22); RDW 14.5 % (11.7-14.6); RDW-SD 46.4 fL
== END 2021-05-16 10:42 | disposition home or self-care (01) ==
LOC: LBN 10:41
PROVIDERS: PCP Family Medicine; Visit Provider Nurse Practitioner
DX: T14.8XXA Other injury of unspecified body region, initial encounter (principal)
CPT/HCPCS: 85027

== ENCOUNTER 2021-06-14 01:59 | Outpatient (CLI) | payer MEDICARE, SELFPAY ==
[2021-06-14 22:04] LABS: COVID-19 RT-PCR UVMMC Result Negative (Negative)
== END 2021-06-14 02:00 | disposition home or self-care (01) ==
LOC: LBO 01:59
PROVIDERS: PCP Family Medicine; Visit Provider Nurse Practitioner Family
DX: Z20.822 Contact with and (suspected) exposure to COVID-19 (principal)
CPT/HCPCS: U0003; U0005

== ENCOUNTER → 2021-08-01 02:00 | Outpatient (CLI) | payer MEDICARE, SELFPAY ==
--- NOTE | 2021-08-01 07:34 | DI.MAMMO_ITS ---
Exam(s) MAMMO DIAGNOSTIC UNI EXAM: MAMMO DIAGNOSTIC UNI -Right CLINICAL HISTORY: 3 month recall for R breast mass,n63.10,f/u abnl imaging, r92.8. TECHNIQUE: Unilateral spot mammographic images were obtained with 3D tomosynthesis technique and uti lizing computer aided detection (CAD). COMPARISON: Prior mammograms were reviewed, the most recent being January 2021 and diagnostic stud y of February 2021. Ultrasound of February 2021 was also reviewed. FINDINGS: On today's mammogram the previously described medially located density is no longer seen, further meño dence that it was benign. There are no new masses nor malignant-appearing microcalcification groups in the right breast. No ne w architectural distortion or skin thickening-traction. IMPRESSION: No radiographic evidence of malignancy in the right breast Appropriate follow-up is to keep this patient on her yearly mammogram schedule, this implying that he r next bilateral mammogram would be in January 2022, with earlier imaging if a self detected breast changes noted.. The patient was informed of the findings and follow-up recommendations prior to leaving the [facility]. BI-RADS Category 2 - Benign Findings Breast Density - Category B - Scattered areas of fibroglandular density Breast density Category C or D implies that the patient has dense breast tissue. Dense breast tissue can make it harder to find cancer on a mammogram. Dense breast tissue is also associated with an incr eased risk of breast cancer. This information about the result of the mammogram report was provided to the patient to raise their awareness. Use this report when you speak with the patient about their risks for breast cancer, which includes their family history. At that time, you may recommend additional screening tests (Ultrasoun d or MRI) as these tests may add significant information. A negative radiographic report should not delay biopsy if a dominant or clinically suspicious mass is present. Up to ten percent of cancers are not identified on mammography. A negative report may reinforce clinical impression. Adenosis and dense breasts may obscure an underlying neoplasm. False positive reports average 6 to 10%. Patient will receive a letter notifying them of these results.
--- NOTE | 2021-08-01 08:45 | DI.RAD_ITS ---
Exam(s) XR KNEE RT 3V AP,LAT,LAWANDA EXAM: XR KNEE RT 3V AP,LAT,LAWANDA CLINICAL HISTORY: History of R TKA, now acute pain and loss of ROM,m25.569. TECHNIQUE: 2D digital imaging was performed. COMPARISON: CR LEFT KNEE 3 VIEW COMPLETE from 04/11/2012 CR XR KNEE RT 3V AP,LAT,LAWANDA from 08/01/2021 FINDINGS: Three views of the right knee reveal satisfactory position alignment of the components of prosthesis. No fracture or loosening evident. IMPRESSION: DATA REPOSITORY: RADIATION DOSE DELIVERED:
== END ==
PROVIDERS: PCP Family Medicine; Visit Provider Family Medicine
DX: M25.561 Pain in right knee (principal); Z96.651 Presence of right artificial knee joint; M25.861 Other specified joint disorders, right knee; R92.8 Other abnormal and inconclusive findings on diagnostic imaging of breast; N64.59 Other signs and symptoms in breast
CPT/HCPCS: 73562; 77061; 77065; G0279

== ENCOUNTER 2021-08-25 03:01 | Outpatient (CLI) | payer MEDICARE, SELFPAY ==
[2021-08-25 15:28] LABS: Anion Gap 10.5 mmol/L (3-11); BUN 22 mg/dL (7-18); CO2 29.5 mmol/L (21.0-32.0); CREATININE 1.4 mg/dL (0.55-1.02); Chloride 103 mmol/L (98-107); Estimated GFR 37.51 (mL/min/1.73m2); Glucose 84 mg/dL (74-106); Potassium 3.6 mmol/L (3.5-5.1); Sodium 143 mmol/L (136-145)
== END 2021-08-25 03:02 | disposition home or self-care (01) ==
PROVIDERS: PCP Family Medicine; Visit Provider Internal Medicine Cardiovascular Disease
DX: I10 Essential (primary) hypertension (principal)
CPT/HCPCS: 36415; 80048

== ENCOUNTER → 2021-10-02 08:52 | Outpatient (BNVA) | payer MEDICARE, SELFPAY | PROVIDERS: PCP Family Medicine; Referring Provider Family Medicine; Visit Provider Student in an Organized Health Care Education/Training Program | DX: M70.51 Other bursitis of knee, right knee (principal); Z96.651 Presence of right artificial knee joint; M70.61 Trochanteric bursitis, right hip; R29.898 Other symptoms and signs involving the musculoskeletal system | CPT/HCPCS: 99213 ==

== ENCOUNTER → 2021-12-25 09:05 | Outpatient (BNVA) | payer MEDICARE, SELFPAY | PROVIDERS: PCP Family Medicine; Referring Provider Family Medicine; Visit Provider Student in an Organized Health Care Education/Training Program | DX: M70.51 Other bursitis of knee, right knee (principal); M70.61 Trochanteric bursitis, right hip | CPT/HCPCS: 99213 ==

== ENCOUNTER 2022-02-14 03:10 | Outpatient (CLI) | payer MEDICARE, SELFPAY ==
[2022-02-14 12:27] LABS: ESR 38 mm/hr (0-30)
[2022-02-14 13:45] LABS: TSH (W/Ref FT4) 1.29 uIU/mL (0.36-3.74)
[2022-02-14 22:29] LABS: CRP, High Sensitivity 9.02 mg/L (See Note)
== END 2022-02-14 03:11 | disposition home or self-care (01) ==
LOC: LBO 03:10
PROVIDERS: PCP Family Medicine; Visit Provider Family Medicine
DX: G47.00 Insomnia, unspecified (principal); R70.0 Elevated erythrocyte sedimentation rate; R51.9 Headache, unspecified; R53.83 Other fatigue
CPT/HCPCS: 85652; 86141; 84443

== ENCOUNTER 2022-04-04 12:48 | Outpatient (REF) | payer MEDICARE, SELFPAY ==
[2022-04-05 20:01] LABS: COVID-19 RT-PCR UVMMC Result Negative (Negative)
[2022-04-06 08:45] LABS: Influenza A RNA Result Negative (Negative); Influenza B RNA Result Negative (Negative); RSV RNA Result Negative (Negative)
== END 2022-04-04 12:49 | disposition home or self-care (01) ==
LOC: LBN 12:48
PROVIDERS: PCP Family Medicine; Visit Provider Nurse Practitioner Family
DX: J06.9 Acute upper respiratory infection, unspecified (principal); Z20.822 Contact with and (suspected) exposure to COVID-19; R53.83 Other fatigue; R05.8 Other specified cough; R06.02 Shortness of breath
CPT/HCPCS: 87631; 87637; U0003

== ENCOUNTER 2022-04-26 03:59 | Outpatient (CLI) | payer MEDICARE, SELFPAY ==
[2022-04-26 12:15] LABS: ESR 19 mm/hr (0-30)
[2022-04-26 12:39] LABS: Anion Gap 9.8 mmol/L (3-11); BUN 35 mg/dL (7-18); CO2 29.2 mmol/L (21.0-32.0); CREATININE 2.5 mg/dL (0.55-1.02); Calcium 9.4 mg/dL (8.5-10.1); Chloride 99 mmol/L (98-107); Estimated GFR 20.56 (mL/min/1.73m2); Glucose 109 mg/dL (74-106); Sodium 138 mmol/L (136-145)
[2022-04-26 12:44] LABS: Potassium 2.9 mmol/L (3.5-5.1)
== END 2022-04-26 04:00 | disposition home or self-care (01) ==
LOC: LBO 03:59
PROVIDERS: PCP Family Medicine; Visit Provider Family Medicine
DX: R51.9 Headache, unspecified (principal); E87.6 Hypokalemia; M25.50 Pain in unspecified joint
CPT/HCPCS: 36415; 80048; 85652

== ENCOUNTER 2022-05-07 02:32 | Outpatient (CLI) | payer MEDICARE, SELFPAY ==
--- NOTE | 2022-05-07 07:00 | DI.CTLCSR_ITS ---
Exam(s) CT CHEST LUNG CANCER SCREEN EXAM: CT CHEST LUNG CANCER SCREEN CLINICAL HISTORY: Screening for lung cancer,former smoker, z87.891. TECHNIQUE: Imaging Protocol: Low Dose Technique CONTRAST MATERIAL: None COMPARISON: CT CT CHEST LUNG CANCER SCREEN from 02/07/2021 FINDINGS: CHEST: LUNGS: Tiny peripheral granulomas in the right lung are again noted. Also an unchanged 2-3 millimete r nodule the superior lingular segment of the left lung. There are mild increased subpleural marking s in the inferior lingular segment of the left lung. She there are no new ominous pulmonary nodules. There are no pleural effusions. MEDIASTINUM: There is no obvious hilar nor mediastinal adenopathy. CARDIAC: Mild cardiomegaly. No pericardial effusion.Caliber of the thoracic aorta is within normal l imits. OTHER: OSSEOUS: No significant osseous lesions.. IMPRESSION: 1. No new significant pulmonary nodules. 2. Other stable findings as above. 3. Lung RADS Cat 2 - Benign Appearance / Behavior: Nodules with a very low likelihood of becoming a c linically active cancer due to size or lack of growth Lung-RADS 1.0 CATEGORIES: Category 0 - Prior chest CT exam(s) being located for comparison. Category 1 - Annual screening in 12 months. No nodules or definitely benign nodules. Category 2 - Annual screening in 12 months. Benign appearance. Nodules with low likelihood of becomin g active cancer. Category 3 - 6-month follow-up. Probably benign. Short-term follow-up suggested. Nodules with low lik elihood of becoming active cancer. Category 4A - 3-month follow-up and CT/PET if >8 mm in size. Suspicious finding. Findings which requi re additional testing. Category 4B - Findings which require additional testing and tissue sampling. Category 4X - Category 3 or 4 nodules with additional features or imaging findings that increases the suspicion of malignancy. Modifier S- Potentially clinically significant findings (non lung cancer) RADIATION DOSE DELIVERED: 86.45mGy.cm Total DLP !Error 2.21mGyCTDIvol DATA REPOSITORY: All CT scans at this facility are submitted to the National Radiology Data Registry (NRDR) Dose Index Registry (DIR) with the [employer] (A[employer]). RADIATION OPTIMIZATION: All CT scans at this facility use at least one of these dose optimization te chniques: automated exposure control; mA and/or kV adjustment per patient size (includes targeted exa ms where dose is matched to clinical indication); or iterative reconstruction.
== END 2022-05-07 02:52 ==
LOC: DI 02:32
PROVIDERS: PCP Family Medicine; Visit Provider Family Medicine
DX: Z12.2 Encounter for screening for malignant neoplasm of respiratory organs (principal); Z87.891 Personal history of nicotine dependence; R91.1 Solitary pulmonary nodule; J98.4 Other disorders of lung
CPT/HCPCS: 71271

== ENCOUNTER 2022-05-14 02:55 | Outpatient (CLI) | payer MEDICARE, SELFPAY ==
[2022-05-14 09:49] LABS: Anion Gap 9.1 mmol/L (3-11); BUN 25 mg/dL (7-18); CO2 26.9 mmol/L (21.0-32.0); CREATININE 2.3 mg/dL (0.55-1.02); Calcium 8.9 mg/dL (8.5-10.1); Chloride 105 mmol/L (98-107); Estimated GFR 22.73 (mL/min/1.73m2); Glucose 89 mg/dL (74-106); Magnesium 1.9 mg/dL (1.8-2.4); Potassium 3.4 mmol/L (3.5-5.1); Sodium 141 mmol/L (136-145)
== END 2022-05-14 02:56 | disposition home or self-care (01) ==
LOC: LBO 02:55
PROVIDERS: PCP Family Medicine; Referring Provider Family Medicine; Visit Provider Family Medicine
DX: N17.9 Acute kidney failure, unspecified (principal)
CPT/HCPCS: 36415; 80048; 83735

== ENCOUNTER 2022-06-05 01:42 | Outpatient (CLI) | payer MEDICARE, SELFPAY ==
--- NOTE | 2022-06-05 07:30 | DI.US_ITS ---
Exam(s) US RENAL EXAM: US RENAL CLINICAL HISTORY: Acute on chronic renal failure,n17.9. TECHNIQUE: Moore scale, color and spectral Doppler were used. COMPARISON: US ABDOMEN ULTRASOUND (P) from 10/03/2010 FINDINGS: Renal size in cm: Right: 10.4. Left: 9.2. Echogenicity: Normal. Hydronephrosis: No. Cyst or mass: There is a tiny 0.7 x 0.4 x 0.7 cm simple right renal cyst. No follow-up is recommende d. Nephrolithiasis: No. Other findings: None. Bladder:There is incomplete distension of the urinary bladder. Ureteral jets: Right: Visualized and unremarkable. Left: Not visualized on this examination. Prevoid vol:65 cc Postvoid vol:0 cc Renal color flow: Symmetric and within normal limits. IMPRESSION: No acute abnormality. DATA REPOSITORY:
== END 2022-06-05 02:02 ==
LOC: DI 01:42
PROVIDERS: PCP Family Medicine; Visit Provider Family Medicine
DX: N17.9 Acute kidney failure, unspecified (principal)
CPT/HCPCS: 76770

== ENCOUNTER 2022-07-09 15:55 | Outpatient (CLI) | payer MEDICARE, SELFPAY ==
--- NOTE | 2022-07-09 15:00 | DI.RAD_ITS ---
Exam(s) XR ELBOW RT LIMITED EXAM: XR ELBOW RT LIMITED CLINICAL HISTORY: right elbow mass. TECHNIQUE: 2D digital imaging was performed. Three views. COMPARISON: No exams were available for comparison FINDINGS: BONES: No acute fracture is present. No bony destructive lesion is seen. JOINTS: Mild periarticular spurring.. No joint effusion is seen. SOFT TISSUE: Circumscribed mass in the posterior subcutaneous fat at the level of the distal humeral metaphysis measuring 2 x 2.6 cm. No associated calcifications. Smoothly marginated bony densities s een adjacent to the lateral epicondyle posterior to the olecranon. IMPRESSION: Soft tissue mass appears to lie in subcutaneous fat of the distal posterior arm. DATA REPOSITORY: RADIATION DOSE DELIVERED:
== END 2022-07-09 15:56 | disposition home or self-care (01) ==
LOC: DIORS 15:55
PROVIDERS: PCP Family Medicine; Referring Provider Family Medicine; Visit Provider Student in an Organized Health Care Education/Training Program
DX: R22.31 Localized swelling, mass and lump, right upper limb (principal)
CPT/HCPCS: 99213; 73070

== ENCOUNTER 2022-07-09 16:45 | Outpatient (REF) | payer MEDICARE, SELFPAY ==
[2022-07-09 17:38] LABS: Bacteria Negative HPF (Negative); C & S Indicated? No; Casts Negative LPF (Negative); Crystals Mod Calcium Oxalate HPF (Negative); Epithelial Cells Few HPF (Negative); Mucus Negative (Negative); Other Cells Negative (Negative); RBC 0-2 HPF (0-2)
== END 2022-07-09 16:46 | disposition home or self-care (01) ==
LOC: LBN 16:45
PROVIDERS: PCP Family Medicine; Visit Provider Family Medicine
DX: N17.9 Acute kidney failure, unspecified (principal)
CPT/HCPCS: 81015

== ENCOUNTER 2022-07-25 01:38 | Outpatient (CLI) | payer MEDICARE, SELFPAY ==
--- NOTE | 2022-07-25 07:45 | DI.MRI_ITS ---
Exam(s) MR UPPER JOINT RT WO EXAM: MR UPPER JOINT RT WO CLINICAL HISTORY: Right Elbow Mass,R22.31 TECHNIQUE: Multiplanar multisequence MRI was performed without intravenous contrast. COMPARISON: CR XR ELBOW RT LIMITED from 07/09/2022 FINDINGS: Contrast was not administered due to the patient's decreased renal function. BONES/JOINTS: No fracture or contusion pattern. No bone lesions identified. MUSCULOTENDINOUS STRUCTURES: The muscles show normal signal and size. No muscular fatty atrophy. SOFT TISSUES: There is a very well-circumscribed ovoid soft tissue mass in the posterior upper arm mckeon perficial to the triceps tendon. It measures 2.7 cm craniocaudad by 1.6 cm AP x 2.9 cm transverse. It is homogeneously hyperintense on the T2 weighted images and homogeneously hypointense on the T1 we ighted images. There is no involvement of the underlying tendon. There is no surrounding edema. So ft tissues are otherwise unremarkable. OTHER FINDINGS: None. IMPRESSION: Well-circumscribed 2.7 x 1.6 x 2.9 cm subcutaneous mass in the posterior upper arm. Primary diagnost ic consideration is for an epidermal inclusion cyst. Other considerations should include resolving h ematoma/seroma, neural fibroma or myxoid tumor. DATA REPOSITORY:
[2022-07-25 11:55] LABS: CREATININE 2.1 mg/dL (0.55-1.02); Estimated GFR 25.19 (mL/min/1.73m2)
== END 2022-07-25 01:58 ==
PROVIDERS: PCP Family Medicine; Visit Provider Student in an Organized Health Care Education/Training Program
DX: R22.31 Localized swelling, mass and lump, right upper limb (principal); Z01.812 Encounter for preprocedural laboratory examination
CPT/HCPCS: 73221; 82565

== ENCOUNTER 2022-11-07 10:08 | Day surgery (SDC) | payer MEDICARE, SELFPAY ==
[2022-11-07 10:10] VITALS: BP 135/69; PULSE 88; RESP 20; TEMP 36; O2SAT 97
--- NOTE | 2022-11-07 11:08 | PDOC.DSDIS_ITS ---
Date of service: 11/07/22 Time of Service: 11:08 Discharge Plan Disposition Patient Disposition: Home Condition: Good Discharge Details Reason For Visit: Right Elbow Mass Attending Provider: Levi Conley Primary Care Provider: Uri Maradiaga Home Meds and New Rx's Prescriptions: New tramadol 50 mg tablet 50 mg PO Q8H PRNQty: 5 0RF Continued trazodone 50 mg tablet 50 mg PO QHS PRN (Reason: sleep) Qty: 60 0RF valacyclovir 1 gram tablet 2,000 mg PO Q12H PRN (Reason: outbreaks) Qty: 20 6RF Rx Instructions: Take for one day for each outbreak diphenoxylate-atropine [Lomotil] 2.5-0.025 mg tablet 1 tab PO BID PRN (Reason: diarrhea) Qty: 10 0RF promethazine 25 mg tablet 25 mg PO Q6H PRN (Reason: migraine headache) Qty: 30 0RF rimegepant 75 mg tablet,disintegrating 75 mg PO ONCE PRN (Reason: migraine headache) Qty: 10 0RF Rx Instructions: as a single dose omeprazole 20 mg capsule,delayed release(DR/EC) 20 mg PO DAILY Qty: 90 0RF duloxetine 60 mg capsule,delayed release(DR/EC) 60 mg PO DAILY Qty: 90 3RF hydrochlorothiazide 12.5 mg tablet 12.5 mg PO DAILY Qty: 90 3RF Hold Instructions: Home Medication placed on hold at Doctor's office potassium chloride 20 mEq packet 20 meq PO DAILY Qty: 100 0RF metoprolol succinate 25 mg tablet extended release 24 hr 25 mg PO BID Qty: 180 3RF Eliquis 5 mg tablet 5 mg PO BID Qty: 180 3RF furosemide 20 mg tablet 20 mg PO DAILY Qty: 30 0RF rosuvastatin 5 mg tablet 5 mg PO QHS Qty: 90 3RF acetaminophen [Tylenol Arthritis] 650 MG tablet extended release 1,300 mg PO PRN PRN (Reason: Pain) Patient Comments: 01/25/17 Takes 3 500mg every morning and every night. LR Discharge Instructions Additional Instructions: Elbow Mass Excision Discharge Instructions Activity: You may use the sling for comfort. You may stop using it when you feel able. Gentle motion of the elbow, hand, wrist, and fingers is okay and encouraged after the first few days, but no repetitive activites nor heavy lifting. You may apply ice. Medications: - You should take Tylenol around the clock, up to 3000mg daily. - You have been prescribed Tramadol for breakthrough pain. Dressings: - The initial surgical dressing should stay in place for 3 days. It may then be removed and kept clean and dry. You should cover with a light gauze dressing or large band-aid. You may keep this dressing in place until follow-up as well. - You may shower after 3 days and get the wound wet. Replace dressing after shower. Follow-up: 10 days Referrals: Levi Conley MD [ [facility] STAFF PHYSICIAN] - Equipment/Supplies: Sling Activity:: Activity as Tolerated Remove Dressings/Wound Care:: 72 hours Shower/Bathe:: 72 hours Diet:: As Tolerated Discharge Orders Discharge Orders: Discharge Order (Routine); Ordered 11/07/22 Ordered By: Levi Conley
[2022-11-07] MEDS: Cephalexin 500 MG CAP 1000 MG PO (11:33)
[2022-11-07] MEDS: Sodium Bicarbonate 50 MEQ/50 ML VIAL (12:45)
[2022-11-07] MEDS: Lidocaine 1% Pres-Free W/EPI 1/200,000 30 ML VIAL (12:45)
[2022-11-07 13:02] VITALS: BP 110/76; PULSE 95; RESP 18; TEMP 36.4; O2SAT 97
--- NOTE | 2022-11-07 21:54 | W.PM.OP ---
Date of service: 11/07/22 Time of Service: 12:45 Operative Note Operative Note DATE OF PROCEDURE: 11/07/22 PRE-OP DIAGNOSIS: Right Elbow Mass POST-OP DIAGNOSIS: other (Right Posterior Elbow Inclusion Cyst) PROCEDURE: Excision of right posterior elbow mass SURGEON: Levi Conley ANESTHESIA TYPE: Local By Surgeon Refer to Anesthesia Record ESTIMATED BLOOD LOSS: 5 COMPLICATIONS: None Patient was transported to: same day Patient's condition: stable Indications: Sanaz is a 67-year-old female who has had a mass about the posterior aspect of her right distal arm/elbow. It has not gone away and continues to cause dysfunction. Appears to be subcutaneous and benign on MRI therefore I did offer surgical excision. I reviewed the treatment options with her. I reviewed the technical features of the surgery. I discussed the risk to include bleeding, infection, pain, stiffness, recurrent, need for repeat procedures. Despite these risk, she elects to proceed. Findings: There is a inclusion cyst and subcutaneous tissues of the posterior right elbow. The cyst contents and the cyst capsule was removed in whole. Procedure Description: Sanaz was greeted in the preoperative holding area. Her identity was confirmed the correct site was identified and marked. The consent was reviewed the patient and signed. Reason taken back to the operating room placed in the supine position with the right arm on a hand table. The right arm was then prepped ChloraPrep and draped in a standard fashion with the elbow resting across her chest. A timeout was then performed for safe surgery. Prophylactic antibiotics were administered orally prior to surgery. The proposed surgical site was injected with 1% lidocaine with epinephrine. After this had a chance to set up we then proceeded with a longitudinal incision directly overlying the mass. Immediately encountered a glossy white cyst capsule filled with thickened white caseous material. This confirmed the diagnosis of inclusion cyst. The contents of the cyst were evacuated. The cyst capsule was removed in whole and peeled off the deeper tissues. Had no adherence to any other surrounding tissues. There is no vascularity. Once the cyst contents were removed completely the wound was irrigated. It was then closed with 3-0 Vicryl followed by 4-0 Monocryl, reinforced with skin glue. A Mepilex border dressing was applied over the wound followed by an Basil wrap for compression. At the end the case all counts were correct. No pathology was sent. I recommend that she keep the Basil wrap on for the first week or so to hopefully prevent a seroma or hematoma. She may use the arm for light activity. Sling for comfort. Follow-up in 7 to 10 days.
== END 2022-11-07 13:32 | disposition home or self-care (01) ==
PROVIDERS: PCP Family Medicine; Visit Provider Student in an Organized Health Care Education/Training Program
PROC: (CPT 11403; principal; 2022-11-07 13:15)
DX: L72.0 Epidermal cyst (principal)
CPT/HCPCS: 11403

== ENCOUNTER → 2022-11-19 12:58 | Outpatient (BNVA) | payer MEDICARE, SELFPAY | PROVIDERS: PCP Family Medicine; Referring Provider Family Medicine | DX: Z47.89 Encounter for other orthopedic aftercare (principal); L72.0 Epidermal cyst ==

== ENCOUNTER 2023-01-21 02:09 | Outpatient (RCR) | payer MEDICARE, SELFPAY ==
[2023-01-21] MEDS: Normal Saline Flush 10 ML SYR IVP (09:18)
[2023-01-21] MEDS: IRON SUCROSE COMPLEX 300 MG in Normal Saline 250 ML 176.667 MG IVPB (09:20)
== END 2023-01-24 23:59 | disposition home or self-care (01) ==
LOC: INF 02:09
PROVIDERS: PCP Family Medicine; Visit Provider Nurse Practitioner Family
DX: N18.9 Chronic kidney disease, unspecified (principal); D63.1 Anemia in chronic kidney disease; D50.9 Iron deficiency anemia, unspecified
CPT/HCPCS: 96365; 96366; 96523; J1756

== ENCOUNTER 2023-02-05 02:22 | Outpatient (RCR) | payer MEDICARE, SELFPAY ==
[2023-01-29] MEDS: Normal Saline Flush 10 ML SYR IVP (09:08)
[2023-01-29] MEDS: IRON SUCROSE COMPLEX 300 MG in Normal Saline 250 ML 176.667 MG IVPB (09:10)
[2023-02-05] MEDS: IRON SUCROSE COMPLEX 300 MG in Normal Saline 250 ML 176.667 MG IVPB (09:10)
[2023-02-05] MEDS: Normal Saline Flush 10 ML SYR IVP (09:14)
== END 2023-02-23 23:59 | disposition home or self-care (01) ==
LOC: INF 02:22
PROVIDERS: PCP Family Medicine; Visit Provider Nurse Practitioner Family
DX: N18.9 Chronic kidney disease, unspecified (principal); D63.1 Anemia in chronic kidney disease; D50.9 Iron deficiency anemia, unspecified
CPT/HCPCS: 96365; 96366; J1756

== ENCOUNTER 2023-04-22 16:05 | Outpatient (CLI) | payer MEDICARE, SELFPAY ==
--- NOTE | 2023-04-22 15:30 | DI.RAD_ITS ---
Exam(s) XR HIP PELVIS ADULT BL EXAM: XR HIP PELVIS ADULT BL CLINICAL HISTORY: pain. TECHNIQUE: 2D digital imaging was performed of the pelvis and bilateral hips. Three images were obt ained. AP pelvis and lateral views of both hips were obtained. COMPARISON: CR LUMBAR SPINE COMPLETE from 05/28/2016 FINDINGS: BONES: No acute fracture is present. No bony destructive lesion is seen. JOINTS: No dislocation present. There is sclerosis at the symphysis pubis. Mild degenerative changes are seen in the hips characterized by joint space narrowing. The sacroiliac joints are unremarkable . SOFT TISSUE: Vascular calcifications are present. IMPRESSION: 1. Osteitis pubis. 2. Mild narrowing of the hip joints bilaterally. DATA REPOSITORY: RADIATION DOSE DELIVERED:
== END 2023-04-22 16:06 | disposition home or self-care (01) ==
LOC: DIORS 16:05
PROVIDERS: PCP Family Medicine; Referring Provider Family Medicine; Visit Provider Student in an Organized Health Care Education/Training Program
DX: M70.61 Trochanteric bursitis, right hip (principal)
CPT/HCPCS: 20610; 73521; J1040

== ENCOUNTER 2023-05-23 09:57 | Emergency (ER) | payer MEDICARE, SELFPAY ==
[2023-05-23] VITALS (20 sets, daily range): BP systolic 126–169; BP diastolic 68–92; PULSE 100–127; RESP 16–23; TEMP 36.1–37.5; O2SAT 95–98
--- NOTE | 2023-05-23 10:18 | W.ED.GENAD ---
Discharge Plan Disposition Patient Disposition: Home Condition: Good Discharge Details Clinical Impression: Pyelonephritis Primary Care Provider: Uri Maradiaga ED Provider: Chio Lee Home Meds and New Rx's Prescriptions: New cefpodoxime 200 mg tablet 200 mg PO BID Qty: 28 0RF Rx Instructions: must administer with a meal/food No Action trazodone 50 mg tablet 50 mg PO QHS PRN (Reason: sleep) Qty: 60 0RF valacyclovir 1 gram tablet 2,000 mg PO Q12H PRN (Reason: outbreaks) Qty: 20 6RF Rx Instructions: Take for one day for each outbreak diphenoxylate-atropine [Lomotil] 2.5-0.025 mg tablet 1 tab PO BID PRN (Reason: diarrhea) Qty: 10 0RF promethazine 25 mg tablet 25 mg PO Q6H PRN (Reason: migraine headache) Qty: 30 0RF rimegepant 75 mg tablet,disintegrating 75 mg PO ONCE PRN (Reason: migraine headache) Qty: 10 0RF Rx Instructions: as a single dose duloxetine 60 mg capsule,delayed release(DR/EC) 60 mg PO DAILY Qty: 90 3RF potassium chloride 20 mEq packet 20 meq PO DAILY Qty: 100 0RF metoprolol succinate 25 mg tablet extended release 24 hr 25 mg PO BID Qty: 180 3RF Eliquis 5 mg tablet 5 mg PO BID Qty: 180 3RF furosemide 20 mg tablet 20 mg PO DAILY Qty: 30 0RF rosuvastatin 5 mg tablet 5 mg PO QHS Qty: 90 3RF omeprazole 20 mg capsule,delayed release(DR/EC) 20 mg PO DAILY Qty: 90 3RF hydrochlorothiazide 12.5 mg tablet 12.5 mg PO DAILY Qty: 90 3RF Hold Instructions: Home Medication placed on hold at Doctor's office acetaminophen [Tylenol Arthritis] 650 MG tablet extended release 1,300 mg PO PRN PRN (Reason: Pain) Patient Comments: 01/25/17 Takes 3 500mg every morning and every night. LR Discharge Instructions Instructions: Kidney Infection (ED) Additional Instructions: Antibiotic twice a day for the next 14 days until it is all gone. Call your primary care doctor today to schedule an appointment within one week to followup on your visit here. Keep your appointments with your outpatient specialists including your kidney doctor. Your Creatine is 1.8 today. Return to the emergency department for new or worsening symptoms including fever, vomiting, decreasing urine output, or if you have any other concerns. Stand Alone Forms: Work Release Referrals: Uri Maradiaga DO [Primary Care Provider] - Medical Decision Making 67yo F with hx of obesity, T2DM, CKD, HTN HLD, afib on warfarin, GERD, presenting for 4 days of right flank pain now with fever, nausea, and vomiting. Tachycardiac on arrival to 120's, afib on the monitor. Vital signs otherwise reassuring, afebrile. Physical exam reassuring; given flank pain, urinary incontinence, and tachycardia will treat presumptively for pyelonephritits & sepsis with IVF bolus and IV ceftriaxone. No abdominal tenderness to suggest intrabdominal process/obstruction/etc; would not get imaging unless lab/urine workup unrevealing. Labs reviewed below, CBC reassuring with no leukocytosis, CMP with Cr 1.8 (most recent 1.59 on [facility] recrod review, patient reports has an appointment with a kidney doctor for further evaluation), lactate normal. With no fever and no leukocytosis, does not meet SIRS/sepsis criteria. UA consistent with UTI. Nature of pain does not suggest kidney stone; would not get CT. On reassessment HR improved to low 100's- patient states this is normal for her and that she has an appointment with cardiology next week to discuss adjusting her afib medications. Would not pursue further here. Will prescribe two week course of cefpo for pyelonephritis. Discharged home; discharge instructions and return precautions were reviewed with patient who verbalized understanding. All questions were answered and she is in full agreement with the plan. Lab Data Lab results reviewed: Yes I reviewed the patient's lab results. Labs: 05/23/23 11:01 Urine - Reflex from Ua Urine Culture - Pending 05/23/23 10:35 Blood Blood Culture - Pending 05/23/23 10:30 Blood Blood Culture - Pending Laboratory Tests Range/Units 05/23/23 05/23/23 05/23/23 10:30 10:44 11:01 WBC (4.4-10.8) 10^3/uL 9.42 RBC (3.93-5.22) 10^6/uL 4.28 Hgb (11.2-15.7) g/dL 12.8 Hct (36.0-46.0) % 38.2 MCV (80-95) fL 89 MCH (27.0-33.0) pg 29.9 MCHC (32.0-36.0) % 33.5 RDW (11.7-14.6) % 14.5 Plt Count (130-400) 10^3/uL 171 MPV (8.0-11.0) fL 10.8 Immature Gran % 0.6 Neutrophils % 87.1 Lymphocytes % 5.7 Monocytes % 6.4 Eosinophils % 0.0 Basophils % 0.2 Nucleated RBC % (0.0-0.3) % 0.0 Absolute Neutrophils (1.2-6.7) 10^3/uL 8.20 H Absolute Lymphocytes (1.2-3.4) 10^3/uL 0.54 L Absolute Monocytes (0.1-0.8) 10^3/uL 0.60 Absolute Eosinophils (0.0-0.7) 10^3/uL 0.00 Absolute Basophils (0.0-0.2) 10^3/uL 0.02 VBG Lactate (0.6-1.4) mmol/L 0.7 Sodium (136-145) mmol/L 134 L Potassium (3.5-5.1) mmol/L 3.2 L Chloride (98-107) mmol/L 94 L Carbon Dioxide (21.0-32.0) mmol/L 28.3 Anion Gap (3-11) mmol/L 11.7 H BUN (7-18) mg/dL 27 H Creatinine (0.55-1.02) mg/dL 1.8 H Est GFR (CKD-EPI 2020) (mL/min/1.73m2) 30.31 Glucose (74-106) mg/dL 148 H Calcium (8.5-10.1) mg/dL 9.3 Total Bilirubin (0.2-1.0) mg/dL 0.9 AST (15-37) U/L 16 ALT (14-59) U/L 23 Alkaline Phosphatase (46-116) U/L 79 Total Protein (6.4-8.2) g/dL 7.5 Albumin (3.4-5.0) g/dL 2.8 L Urine Color (Yellow) Yellow Urine Clarity (Clear) Sl Cloudy Urine pH (5-8) 6.0 Ur Specific [place] (1.005-1.025) 1.025 Urine Protein (Negative) mg/dL 100 H Urine Ketones (Negative) mg/dL Negative Urine Blood (Negative) Moderate H Urine Nitrite (Negative) Positive H Urine Bilirubin (Negative) Small H Urine Urobilinogen (Up to 0.2) mg/dL 2.0 H Ur Leukocyte Esterase (Negative) Trace H Urine RBC (0-2) HPF 10-20 H Urine WBC (0-5) HPF 5-10 Ur Epithelial Cells (Negative) HPF Few Urine Crystals (Negative) HPF Negative Urine Bacteria (Negative) HPF Moderate Urine Casts (Negative) LPF Negative Urine Mucus (Negative) Trace Urine Other (Negative) Negative Ur Culture Indicated? Yes Urine Glucose (Negative) mg/dL Negative Range/Units 05/23/23 13:38 WBC (4.4-10.8) 10^3/uL RBC (3.93-5.22) 10^6/uL Hgb (11.2-15.7) g/dL Hct (36.0-46.0) % MCV (80-95) fL MCH (27.0-33.0) pg MCHC (32.0-36.0) % RDW (11.7-14.6) % Plt Count (130-400) 10^3/uL MPV (8.0-11.0) fL Immature Gran % Neutrophils % Lymphocytes % Monocytes % Eosinophils % Basophils % Nucleated RBC % (0.0-0.3) % Absolute Neutrophils (1.2-6.7) 10^3/uL Absolute Lymphocytes (1.2-3.4) 10^3/uL Absolute Monocytes (0.1-0.8) 10^3/uL Absolute Eosinophils (0.0-0.7) 10^3/uL Absolute Basophils (0.0-0.2) 10^3/uL VBG Lactate (0.6-1.4) mmol/L Cancelled Sodium (136-145) mmol/L Potassium (3.5-5.1) mmol/L Chloride (98-107) mmol/L Carbon Dioxide (21.0-32.0) mmol/L Anion Gap (3-11) mmol/L BUN (7-18) mg/dL Creatinine (0.55-1.02) mg/dL Est GFR (CKD-EPI 2020) (mL/min/1.73m2) Glucose (74-106) mg/dL Calcium (8.5-10.1) mg/dL Total Bilirubin (0.2-1.0) mg/dL AST (15-37) U/L ALT (14-59) U/L Alkaline Phosphatase (46-116) U/L Total Protein (6.4-8.2) g/dL Albumin (3.4-5.0) g/dL Urine Color (Yellow) Urine Clarity (Clear) Urine pH (5-8) Ur Specific [place] (1.005-1.025) Urine Protein (Negative) mg/dL Urine Ketones (Negative) mg/dL Urine Blood (Negative) Urine Nitrite (Negative) Urine Bilirubin (Negative) Urine Urobilinogen (Up to 0.2) mg/dL Ur Leukocyte Esterase (Negative) Urine RBC (0-2) HPF Urine WBC (0-5) HPF Ur Epithelial Cells (Negative) HPF Urine Crystals (Negative) HPF Urine Bacteria (Negative) HPF Urine Casts (Negative) LPF Urine Mucus (Negative) Urine Other (Negative) Ur Culture Indicated? Urine Glucose (Negative) mg/dL HPI General Date/Time Provider Initiated Documentation: 05/23/23 10:09. Limitations to Documentation: no limitations. Information obtained by: patient. HPI Narrative: 67yo F with hx of obesity, T2DM, CKD, HTN HLD, afib on warfarin, GERD, presenting for 4 days of right flank pain now with fever, nausea, and vomiting. Some looser stools. No blood in emesis or stool. New urinary incontinence, no dysuria or hematuria. Has felt warm, 3-4 days ago had an episode of chills, has not checked her temperature. Feels generally unwell. Never had similar symptoms in the past. She is otherwise in her usual state of health with no rash, abdominal pain, chest pain, shortness of breath, numbness, weakness, or other concerns. Related Data Home Medications Medication Instructions Recorded Confirmed acetaminophen 650 mg 1,300 mg PO PRN PRN Pain 08/25/12 05/23/23 tablet,extended release (Tylenol Arthritis) diphenoxylate-atropine 2.5 1 tab PO BID PRN diarrhea #10 tabs 01/17/21 05/23/23 mg-0.025 mg tablet (Lomotil) duloxetine 60 mg capsule,delayed 60 mg PO DAILY #90 caps 09/25/21 05/23/23 release trazodone 50 mg tablet 50 mg PO QHS PRN sleep #60 tabs 02/09/22 05/23/23 potassium chloride 20 mEq oral 20 meq PO DAILY #100 ea 04/26/22 05/23/23 packet valacyclovir 1 gram tablet 2,000 mg (2 x 1 gram) PO Q12H PRN 07/09/22 05/23/23 outbreaks #20 tabs promethazine 25 mg tablet 25 mg PO Q6H PRN migraine headache 08/10/22 05/23/23 #30 tabs rimegepant 75 mg disintegrating 75 mg PO ONCE PRN migraine 08/10/22 05/23/23 tablet headache #10 tabs apixaban 5 mg tablet (Eliquis) 5 mg PO BID #180 tabs 08/21/22 05/23/23 metoprolol succinate 25 mg 25 mg PO BID hypertension #180 tabs 08/21/22 05/23/23 tablet,extended release 24 hr furosemide 20 mg tablet 20 mg PO DAILY #30 tabs 08/31/22 05/23/23 rosuvastatin 5 mg tablet 5 mg PO QHS HLP #90 tabs 09/14/22 05/23/23 omeprazole 20 mg capsule,delayed 20 mg PO DAILY #90 caps 02/08/23 05/23/23 release hydrochlorothiazide 12.5 mg tablet 12.5 mg PO DAILY #90 tabs 03/04/23 05/23/23 cefpodoxime 200 mg tablet 200 mg PO BID #28 tabs 05/23/23 Previous Rx's Medication Instructions Recorded diphenoxylate-atropine 2.5 1 tab PO BID PRN diarrhea #10 tabs 01/17/21 mg-0.025 mg tablet (Lomotil) duloxetine 60 mg capsule,delayed 60 mg PO DAILY #90 caps 09/25/21 release trazodone 50 mg tablet 50 mg PO QHS PRN sleep #60 tabs 02/09/22 potassium chloride 20 mEq oral 20 meq PO DAILY #100 ea 04/26/22 packet valacyclovir 1 gram tablet 2,000 mg (2 x 1 gram) PO Q12H PRN 07/09/22 outbreaks #20 tabs promethazine 25 mg tablet 25 mg PO Q6H PRN migraine headache 08/10/22 #30 tabs rimegepant 75 mg disintegrating 75 mg PO ONCE PRN migraine 08/10/22 tablet headache #10 tabs apixaban 5 mg tablet (Eliquis) 5 mg PO BID #180 tabs 08/21/22 metoprolol succinate 25 mg 25 mg PO BID hypertension #180 tabs 08/21/22 tablet,extended release 24 hr furosemide 20 mg tablet 20 mg PO DAILY #30 tabs 08/31/22 rosuvastatin 5 mg tablet 5 mg PO QHS HLP #90 tabs 09/14/22 omeprazole 20 mg capsule,delayed 20 mg PO DAILY #90 caps 02/08/23 release hydrochlorothiazide 12.5 mg tablet 12.5 mg PO DAILY #90 tabs 03/04/23 cefpodoxime 200 mg tablet 200 mg PO BID #28 tabs 05/23/23 Allergies Allergy/AdvReac Type Severity Reaction Status Date / Time Latex, Natural Rubber Allergy Intermediate Itching Verified 05/23/23 10:16 pravastatin AdvReac Intermediate Myalgias Verified 05/23/23 10:16 fentanyl AdvReac Verified 05/23/23 10:16 General Stated Complaint: FlankPain MARQUIS: 3 Review of Systems Narrative: see HPI PFSH All Active Problems (Updated 05/23/23 @ 12:09 by Chio Lee MD) Pyelonephritis (Acute) Iron deficiency anemia, unspecified (Acute) Obesity, morbid (more than 100 lbs over ideal weight or BMI > 40) (Acute) Epidermoid cyst of skin (Acute) Chronic kidney disease (Chronic) Migraine without aura (Acute) Oral herpes simplex infection (Acute) Mass of right elbow (Acute) Arthritis/arthropathy of multiple joints (Acute) Hypokalemia (Acute) Headache (Acute) Pes anserinus bursitis of right knee (Acute) Greater trochanteric bursitis of right hip (Acute) DEPO MEDROL 04/22/23 Right leg weakness (Acute) Essential hypertension (Acute) Breast mass, right (Acute) Benign appearance, 2020 Diarrhea (Acute) Former smoker (Acute) Encounter for screening laboratory testing for COVID-19 virus (Acute) Seborrheic keratoses (Acute) back Lipoma (Acute) Numbness and tingling (Acute) Prediabetes (Acute) Chronic anticoagulation (Acute) Former cigarette smoker (Acute) Yearly CT screening - first in 2019 Myalgia (Acute) Arthralgia (Acute) Lumbosacral spondylosis without myelopathy (Acute) Restless leg syndrome (Acute 03/17/15) Polyp of colon (Acute) hyperplastic- colo [id number] Obesity (Acute) Hyperlipidemia (Acute) Heart murmur (Acute) Gastroesophageal reflux disease (Acute) Atrial fibrillation (Chronic) Permanent Anticoagulated on warfarin (Acute) A-fib INR goal 2-3 Medical History (Updated 05/23/23 @ 12:09 by Chio Lee MD) Tinnitus, left ear Diverticulosis Onychomycosis 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 Maternal Grandmother , 96 No problems noted. Mother , age 77 Alcohol abuse Bone cancer Father , age 74 Alcohol abuse Lung cancer Heart disease Hypertension Sister No problems noted. Son No problems noted. 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 Pets and animals: Yes (2 cats) Pets and animals: cat(s) Sexually active: No Do you think of yourself as: straight/heterosexual Current gender identity: female What is your relationship status?: never How often do you talk on the phone with friends or family?: once per week How often do you get together with friends or relatives?: once per week How often do you attend jain or oriental orthodox services?: decline to answer Do you belong to any clubs or organized social groups?: no Panel score (0-1 are the most socially isolated patients): 0 What type of physical activity do you participate in: walking and other Details: walk to work and back Duration: < 15 minutes/day Frequency: 3-4 times per week Aishwarya/Amish: None Special aishwarya needs: No Seatbelt use: always Helmet use: No Drive intox or ride w/intox local owner operator truck driver: No Do you feel safe at home: Yes Do you feel safe in your relationship?: Yes Exam Narrative Exam Narrative: General: Alert, well appearing, well nourished, in no acute distress. Head: Normocephalic, atraumatic Neck: Trachea midline, ?Neck supple. ENT: ?MMM.? No oropharygeal lesions or exudate. Cardiac: ?Irregular,, no murmurs appreciated Resp: No respiratory distress. CTAB. Abd: ?Soft, non-distended, nontender : ?+ suprapubic tenderness. No CVA tenderness. Extremities: ?No deformities.? No peripheral edema. Neurologic: GCS 15. ? Moves all extremities freely against gravity Course Vital Signs Vital signs: Vital Signs Temperature 36.1 C L 05/23/23 10:05 Pulse 120 H 05/23/23 10:05 Respiratory Rate 16 05/23/23 10:05 Blood Pressure 152/92 H 05/23/23 10:05 Temperature 37.0 C 05/23/23 10:10 Temperature Source Temporal Artery Scan 05/23/23 10:10 Pulse 124 H 05/23/23 10:10 Respiratory Rate 16 05/23/23 10:10 Respiratory Effort Normal, Non-Labored 05/23/23 10:10 Blood Pressure 152/92 H 05/23/23 10:10 Blood Pressure Position Supine 05/23/23 10:10 Pulse Oximetry 95 05/23/23 10:10 Oxygen Delivery Method Room Air 05/23/23 10:10 Oxygen Flow Rate 0 05/23/23 10:05 Pain Level 10 05/23/23 10:10
[2023-05-23] MEDS: Normal Saline 1,000 ML 1000 ML IV (10:38)
[2023-05-23] MEDS: cefTRIAXone 1 GM/50 ML BAG IVPB (10:39)
[2023-05-23] MEDS: Ondansetron 4 MG/2 ML VIAL IVP (10:39)
[2023-05-23 10:41] LABS: Abs Immature Grans 0.06 10^3/uL (0.0-0.06); Absolute Basophil Count 0.02 10^3/uL (0.0-0.2); Absolute Lymphocyte Count 0.54 10^3/uL (1.2-3.4); Basophils % 0.2; HCT 38.2 % (36.0-46.0); HGB 12.8 g/dL (11.2-15.7); Immature Grans % 0.6; Lymphocytes % 5.7; MCH 29.9 pg (27.0-33.0); MCHC 33.5 % (32.0-36.0); MCV 89 fL (80-95); MPV 10.8 fL (8.0-11.0); Monocytes % 6.4; Neutrophils % 87.1; Platelet Count 171 10^3/uL (130-400); RBC 4.28 10^6/uL (3.93-5.22); RDW 14.5 % (11.7-14.6); RDW-SD 47.4 fL; WBC 9.42 10^3/uL (4.4-10.8)
[2023-05-23 10:47] LABS: Lactate 0.7 mmol/L (0.6-1.4)
[2023-05-23 10:54] LABS: ALT 23 U/L (14-59); AST 16 U/L (15-37); Albumin 2.8 g/dL (3.4-5.0); Alkaline Phosphatase 79 U/L (46-116); Anion Gap 11.7 mmol/L (3-11); BUN 27 mg/dL (7-18); Bilirubin, Total 0.9 mg/dL (0.2-1.0); CO2 28.3 mmol/L (21.0-32.0); CREATININE 1.8 mg/dL (0.55-1.02); Calcium 9.3 mg/dL (8.5-10.1); Chloride 94 mmol/L (98-107); Estimated GFR 30.31 (mL/min/1.73m2); Glucose 148 mg/dL (74-106); Potassium 3.2 mmol/L (3.5-5.1); Sodium 134 mmol/L (136-145); Total Protein 7.5 g/dL (6.4-8.2)
[2023-05-23 11:16] LABS: Bilirubin Small (Negative); Blood Moderate (Negative); Clarity Sl Cloudy (Clear); Glucose Negative (Negative); Ketones Negative (Negative); Leukocyte Esterase Trace (Negative); Nitrite Positive (Negative); Specific Gravity 1.025 (1.005-1.025)
[2023-05-23 11:24] LABS: Bacteria Moderate HPF (Negative); C & S Indicated? Yes; Casts Negative LPF (Negative); Crystals Negative HPF (Negative); Epithelial Cells Few HPF (Negative); Mucus Trace (Negative); Other Cells Negative (Negative)
--- NOTE | 2023-05-25 10:06 | NUR.NOTE ---
Accessed Pt chart to identify antibiotics prescribed to PT for the specimen report.
== END 2023-05-23 12:34 | disposition home or self-care (01) ==
PROVIDERS: Emergency Provider Student in an Organized Health Care Education/Training Program; PCP Family Medicine
DX: N12 Tubulo-interstitial nephritis, not specified as acute or chronic (principal); I12.9 Hypertensive chronic kidney disease with stage 1 through stage 4 chronic kidney disease, or unspecified chronic kidney disease; E11.22 Type 2 diabetes mellitus with diabetic chronic kidney disease; N18.2 Chronic kidney disease, stage 2 (mild); I48.91 Unspecified atrial fibrillation; Z79.01 Long term (current) use of anticoagulants; Z79.84 Long term (current) use of oral hypoglycemic drugs; E78.5 Hyperlipidemia, unspecified
CPT/HCPCS: 80053; 87040; 87077; 96365; 96375; 99283; 81003; 81015; 83605; 85025; 87086; 87186; J0696; J2405

== ENCOUNTER 2023-05-25 12:25 | Emergency (ER) | payer MEDICARE, SELFPAY ==
[2023-05-25] VITALS (29 sets, daily range): BP systolic 122–143; BP diastolic 70–97; PULSE 79–135; RESP 9–28; TEMP 36.9; O2SAT 92–99
--- NOTE | 2023-05-25 12:30 | RT.EKG_ITS ---
APPROVED REPORT Exam: Resting ECG Reason for Exam: Dizziness Patient Location: E HR:113 bpm ECG Measurements Heart Rate 113 AXIS MA [id number] P [id number] QRSd 97 QRS 5 QT 321 T 81 QTc 441 Conclusion Atrial fibrillation...V-rate 75-149, irreg A-activity Probable LVH with secondary repol abnrm...multiple LVH criteria afib, rvr, normal axis, normal intervals, non ischemic
--- NOTE | 2023-05-25 13:10 | ED.GENADUL_ITS ---
Discharge Plan Disposition Patient Disposition: Home Condition: Improving Discharge Details Clinical Impression: A-fib, Hypokalemia Primary Care Provider: Uri Maradiaga ED Provider: Macho Chadwick Home Meds and New Rx's Prescriptions: Continued trazodone 50 mg tablet 50 mg PO QHS PRN (Reason: sleep) Qty: 60 0RF valacyclovir 1 gram tablet 2,000 mg PO Q12H PRN (Reason: outbreaks) Qty: 20 6RF Rx Instructions: Take for one day for each outbreak diphenoxylate-atropine [Lomotil] 2.5-0.025 mg tablet 1 tab PO BID PRN (Reason: diarrhea) Qty: 10 0RF promethazine 25 mg tablet 25 mg PO Q6H PRN (Reason: migraine headache) Qty: 30 0RF rimegepant 75 mg tablet,disintegrating 75 mg PO ONCE PRN (Reason: migraine headache) Qty: 10 0RF Rx Instructions: as a single dose duloxetine 60 mg capsule,delayed release(DR/EC) 60 mg PO DAILY Qty: 90 3RF potassium chloride 20 mEq packet 20 meq PO DAILY Qty: 100 0RF metoprolol succinate 25 mg tablet extended release 24 hr 25 mg PO BID Qty: 180 3RF Eliquis 5 mg tablet 5 mg PO BID Qty: 180 3RF furosemide 20 mg tablet 20 mg PO DAILY Qty: 30 0RF rosuvastatin 5 mg tablet 5 mg PO QHS Qty: 90 3RF omeprazole 20 mg capsule,delayed release(DR/EC) 20 mg PO DAILY Qty: 90 3RF hydrochlorothiazide 12.5 mg tablet 12.5 mg PO DAILY Qty: 90 3RF Hold Instructions: Home Medication placed on hold at Doctor's office acetaminophen [Tylenol Arthritis] 650 MG tablet extended release 1,300 mg PO PRN PRN (Reason: Pain) Patient Comments: 01/25/17 Takes 3 500mg every morning and every night. LR cefpodoxime 200 mg tablet 200 mg PO BID Qty: 28 0RF Rx Instructions: must administer with a meal/food Discharge Instructions Instructions: A-fib (Atrial Fibrillation) (ED), Hypokalemia (ED) Additional Instructions: Please continue with your normal home medications. Follow-up with your primary care physician. Stand Alone Forms: Work Release Medical Decision Making 67-year-old female brought in by son for evaluation of lightheadedness and fast heart rate in the setting of recent diagnosis of pyelonephritis, patient has not been taking her home medications over the last couple of days, no chest pain or shortness of breath no nausea no vomiting. Patient is alert oriented interactive nonfocal neurologic examination. No to be in A-fib RVR with rates ranging between 110-130s likely related to medication noncompliance. Will obtain basic labs, flu RSV swab, light fluid, will load patient with her metoprolol and Eliquis. Low suspicion for ACS PE pneumonia aortic pathology or CVA. Symptoms likely related to med noncompliance and current urinary tract infection. 15: 09 patient feeling much better after medication administration. Rate controlled 99 bpm. Likely symptomatic hypokalemia as well as symptomatic A-fib in the setting of med noncompliance. Patient instructed to continue taking her medications as normal. HPI General Date/Time Provider Initiated Documentation: 05/25/23 12:26 . HPI Narrative: 67-year-old female brought in by son for evaluation of fast heart rate and lightheadedness in the setting of recent diagnosis of pyelonephritis, patient has not been taking her medication which includes metoprolol and Eliquis for her A-fib, no localized weakness, denies chest pain shortness of breath nausea vomiting Related Data Home Medications Medication Instructions Recorded Confirmed acetaminophen 650 mg 1,300 mg PO PRN PRN Pain 08/25/12 05/25/23 tablet,extended release (Tylenol Arthritis) diphenoxylate-atropine 2.5 1 tab PO BID PRN diarrhea #10 tabs 01/17/21 05/25/23 mg-0.025 mg tablet (Lomotil) duloxetine 60 mg capsule,delayed 60 mg PO DAILY #90 caps 09/25/21 05/25/23 release trazodone 50 mg tablet 50 mg PO QHS PRN sleep #60 tabs 02/09/22 05/25/23 potassium chloride 20 mEq oral 20 meq PO DAILY #100 ea 04/26/22 05/25/23 packet valacyclovir 1 gram tablet 2,000 mg (2 x 1 gram) PO Q12H PRN 07/09/22 05/25/23 outbreaks #20 tabs promethazine 25 mg tablet 25 mg PO Q6H PRN migraine headache 08/10/22 05/25/23 #30 tabs rimegepant 75 mg disintegrating 75 mg PO ONCE PRN migraine 08/10/22 05/25/23 tablet headache #10 tabs apixaban 5 mg tablet (Eliquis) 5 mg PO BID #180 tabs 08/21/22 05/25/23 metoprolol succinate 25 mg 25 mg PO BID hypertension #180 tabs 08/21/22 05/25/23 tablet,extended release 24 hr furosemide 20 mg tablet 20 mg PO DAILY #30 tabs 08/31/22 05/25/23 rosuvastatin 5 mg tablet 5 mg PO QHS HLP #90 tabs 09/14/22 05/25/23 omeprazole 20 mg capsule,delayed 20 mg PO DAILY #90 caps 02/08/23 05/25/23 release hydrochlorothiazide 12.5 mg tablet 12.5 mg PO DAILY #90 tabs 03/04/23 05/25/23 cefpodoxime 200 mg tablet 200 mg PO BID #28 tabs 05/23/23 05/25/23 Previous Rx's Medication Instructions Recorded diphenoxylate-atropine 2.5 1 tab PO BID PRN diarrhea #10 tabs 01/17/21 mg-0.025 mg tablet (Lomotil) duloxetine 60 mg capsule,delayed 60 mg PO DAILY #90 caps 09/25/21 release trazodone 50 mg tablet 50 mg PO QHS PRN sleep #60 tabs 02/09/22 potassium chloride 20 mEq oral 20 meq PO DAILY #100 ea 04/26/22 packet valacyclovir 1 gram tablet 2,000 mg (2 x 1 gram) PO Q12H PRN 07/09/22 outbreaks #20 tabs promethazine 25 mg tablet 25 mg PO Q6H PRN migraine headache 08/10/22 #30 tabs rimegepant 75 mg disintegrating 75 mg PO ONCE PRN migraine 08/10/22 tablet headache #10 tabs apixaban 5 mg tablet (Eliquis) 5 mg PO BID #180 tabs 08/21/22 metoprolol succinate 25 mg 25 mg PO BID hypertension #180 tabs 08/21/22 tablet,extended release 24 hr furosemide 20 mg tablet 20 mg PO DAILY #30 tabs 08/31/22 rosuvastatin 5 mg tablet 5 mg PO QHS HLP #90 tabs 09/14/22 omeprazole 20 mg capsule,delayed 20 mg PO DAILY #90 caps 02/08/23 release hydrochlorothiazide 12.5 mg tablet 12.5 mg PO DAILY #90 tabs 03/04/23 cefpodoxime 200 mg tablet 200 mg PO BID #28 tabs 05/23/23 Allergies Allergy/AdvReac Type Severity Reaction Status Date / Time Latex, Natural Rubber Allergy Intermediate Itching Verified 05/25/23 12:35 pravastatin AdvReac Intermediate Myalgias Verified 05/25/23 12:35 fentanyl AdvReac Verified 05/25/23 12:35 General Stated Complaint: Dizzy/Sync MARQUIS: 3 Review of Systems Narrative: Review of Systems Constitutional: Lightheaded Eyes: negative ENT: negative Cardiovascular: Tachycardia Respiratory: negative Gastrointestinal: negative : negative Musculoskeletal: negative Skin: negative Neurologic: negative Psych: negative PFSH All Active Problems (Updated 05/25/23 @ 15:13 by Macho Chadwick MD) Hypokalemia (Acute) A-fib (Chronic) Pyelonephritis (Acute) Iron deficiency anemia, unspecified (Acute) Obesity, morbid (more than 100 lbs over ideal weight or BMI > 40) (Acute) Epidermoid cyst of skin (Acute) Chronic kidney disease (Chronic) Migraine without aura (Acute) Oral herpes simplex infection (Acute) Mass of right elbow (Acute) Arthritis/arthropathy of multiple joints (Acute) Hypokalemia (Acute) Headache (Acute) Pes anserinus bursitis of right knee (Acute) Greater trochanteric bursitis of right hip (Acute) DEPO MEDROL 04/22/23 Right leg weakness (Acute) Essential hypertension (Acute) Breast mass, right (Acute) Benign appearance, 2020 Diarrhea (Acute) Former smoker (Acute) Encounter for screening laboratory testing for COVID-19 virus (Acute) Seborrheic keratoses (Acute) back Lipoma (Acute) Numbness and tingling (Acute) Prediabetes (Acute) Chronic anticoagulation (Acute) Former cigarette smoker (Acute) Yearly CT screening - first in 2019 Myalgia (Acute) Arthralgia (Acute) Lumbosacral spondylosis without myelopathy (Acute) Restless leg syndrome (Acute 03/17/15) Polyp of colon (Acute) hyperplastic- colo [id number] Obesity (Acute) Hyperlipidemia (Acute) Heart murmur (Acute) Gastroesophageal reflux disease (Acute) Atrial fibrillation (Chronic) Permanent Anticoagulated on warfarin (Acute) A-fib INR goal 2-3 Medical History (Updated 05/25/23 @ 15:13 by Macho Chadwick MD) Tinnitus, left ear Diverticulosis Onychomycosis 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 Maternal Grandmother , 96 No problems noted. Mother , age 77 Alcohol abuse Bone cancer Father , age 74 Alcohol abuse Lung cancer Heart disease Hypertension Sister No problems noted. Son No problems noted. 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 Pets and animals: Yes (2 cats) Pets and animals: cat(s) Sexually active: No Do you think of yourself as: straight/heterosexual Current gender identity: female What is your relationship status?: never How often do you talk on the phone with friends or family?: once per week How often do you get together with friends or relatives?: once per week How often do you attend latter day or mormonism services?: decline to answer Do you belong to any clubs or organized social groups?: no Panel score (0-1 are the most socially isolated patients): 0 What type of physical activity do you participate in: walking and other Details: walk to work and back Duration: < 15 minutes/day Frequency: 3-4 times per week Aishwarya/Confucianist: None Special aishwarya needs: No Seatbelt use: always Helmet use: No Drive intox or ride w/intox crude oil driver: No Do you feel safe at home: Yes Do you feel safe in your relationship?: Yes Exam Narrative Exam Narrative: Physical Examination General: alert, awake, cooperative, resting comfortably, no acute distress HEENT: normocephalic, atraumatic; PERRL, EOM intact, conjunctiva normal; no nasal discharge; moist mucous membranes, oral and pharyngeal mucosa normal, tolerating secretions Neck: supple, trachea midline; full ROM Chest: normal to inspection Respiratory: normal respiratory effort, speaking in full sentences, clear to auscultation, no wheezing, rales or rhonchi Cardiac: Irregularly irregular tachycardia, S1S2 intact, no murmurs rubs or gallops GI: abdomen soft, non-tender, non-distended; no palpable mass or hepatosplenome ashlyn Skin: no lesions, rashes or trauma appreciated Neuro: AAOx3, normal speech, moving all extremities Extremities: No peripheral edema Psych: Appropriate mood and affect Course Vital Signs Vital signs: Vital Signs Temperature 36.9 C 05/25/23 12:30 Pulse 135 H 05/25/23 12:30 Respiratory Rate 13 05/25/23 12:30 Blood Pressure 143/97 H 05/25/23 12:30 Pulse Oximetry 97 05/25/23 12:30 Temperature 36.9 C 05/25/23 12:30 Temperature Source Oral 05/25/23 12:30 Pulse 135 H 05/25/23 12:30 Respiratory Rate 13 05/25/23 12:30 Respiratory Effort Normal, Non-Labored 05/25/23 12:36 Blood Pressure 143/97 H 05/25/23 12:30 Blood Pressure Position Supine 05/25/23 12:30 Pulse Oximetry 97 05/25/23 12:30 Oxygen Delivery Method Room Air 05/25/23 12:30 Oxygen Flow Rate 0 05/25/23 12:30 Pain Level 3 05/25/23 12:30 Comment Low back pain 05/25/23 12:30
[2023-05-25] MEDS: Apixaban 5 MG TAB PO (13:15)
[2023-05-25] MEDS: Metoprolol 25 MG TAB PO (13:15)
[2023-05-25] MEDS: Normal Saline 500 ML 1000 ML IV (13:17)
[2023-05-25 13:21] LABS: Abs Immature Grans 0.05 10^3/uL (0.0-0.06); Absolute Basophil Count 0.02 10^3/uL (0.0-0.2); Absolute Eosinophil Count 0.04 10^3/uL (0.0-0.7); Absolute Lymphocyte Count 0.64 10^3/uL (1.2-3.4); Absolute Monocyte Count 0.53 10^3/uL (0.1-0.8); Basophils % 0.4; Eosinophils % 0.8; HCT 40.4 % (36.0-46.0); HGB 13.3 g/dL (11.2-15.7); Lymphocytes % 12.6; MCH 29.4 pg (27.0-33.0); MCHC 32.9 % (32.0-36.0); MCV 89 fL (80-95); MPV 11.1 fL (8.0-11.0); Monocytes % 10.4; Neutrophils % 74.8; Platelet Count 162 10^3/uL (130-400); RBC 4.52 10^6/uL (3.93-5.22); RDW 14.2 % (11.7-14.6); WBC 5.08 10^3/uL (4.4-10.8)
[2023-05-25 13:32] LABS: INR 1.1 (0.9-1.1); Prothrombin Time 10.7 sec (9.1-11.1)
[2023-05-25 13:42] LABS: ALT 38 U/L (14-59); AST 30 U/L (15-37); Albumin 2.8 g/dL (3.4-5.0); Alkaline Phosphatase 81 U/L (46-116); Anion Gap 10.4 mmol/L (3-11); BUN 20 mg/dL (7-18); Bilirubin, Total 0.4 mg/dL (0.2-1.0); CO2 30.6 mmol/L (21.0-32.0); CREATININE 1.6 mg/dL (0.55-1.02); Calcium 9.5 mg/dL (8.5-10.1); Chloride 97 mmol/L (98-107); Estimated GFR 34.91 (mL/min/1.73m2); Glucose 122 mg/dL (74-106); Magnesium 1.9 mg/dL (1.8-2.4); Sodium 138 mmol/L (136-145); Total Protein 7.7 g/dL (6.4-8.2)
[2023-05-25 13:43] LABS: Potassium 2.9 mmol/L (3.5-5.1)
[2023-05-25] MEDS: POTASSIUM CHLORIDE 10 MEQ/100 ML BAG 100 MEQ IVPB (14:37)
== END 2023-05-25 15:41 | disposition home or self-care (01) ==
PROVIDERS: Emergency Provider Emergency Medicine; PCP Family Medicine
DX: I48.91 Unspecified atrial fibrillation (principal); R42 Dizziness and giddiness; E87.6 Hypokalemia; Z79.01 Long term (current) use of anticoagulants; Z87.891 Personal history of nicotine dependence
CPT/HCPCS: 36415; 80053; 87426; 93005; 96365; 99283; 83735; 84443; 85025; 85610; 85730; 93010; J3480

== ENCOUNTER 2023-09-30 15:44 | Outpatient (REF) | payer MEDICARE, SELFPAY ==
[2023-09-30 19:47] LABS: COVID-19 PCR Negative (Negative); Influenza A PCR Negative (Negative); Influenza B PCR Negative (Negative); RSV PCR Negative (Negative)
[2023-09-30 19:52] LABS: Source Nasopharynx
== END 2023-09-30 15:45 | disposition home or self-care (01) ==
LOC: LBN 15:44
PROVIDERS: PCP Family Medicine; Visit Provider Nurse Practitioner
DX: R06.02 Shortness of breath (principal); R05.8 Other specified cough; R09.89 Other specified symptoms and signs involving the circulatory and respiratory systems; Z20.828 Contact with and (suspected) exposure to other viral communicable diseases
CPT/HCPCS: 87637

== ENCOUNTER → 2023-09-30 18:16 | Outpatient (CLI) | payer MEDICARE, SELFPAY ==
--- NOTE | 2023-09-30 15:45 | DI.RAD_ITS ---
Exam(s) XR CHEST 2V PA LATERAL EXAM: XR CHEST 2V PA LATERAL CLINICAL HISTORY: cough, wheeze, SOB, R05.9, R06.2 TECHNIQUE: 2D digital imaging was performed. Two views. COMPARISON: CT CT CHEST LUNG CANCER SCREEN from 05/07/2022 FINDINGS: HEART: Enlarged. Aorta: Not dilated. PULMONARY VASCULATURE: Normal. LUNGS: Clear. PLEURAL SPACE: No pleural effusion or pneumothorax. BONE:Degenerative changes in the spine. Soft tissues: Unremarkable. IMPRESSION: No acute abnormality. DATA REPOSITORY: RADIATION DOSE DELIVERED:
== END ==
PROVIDERS: PCP Family Medicine; Visit Provider Nurse Practitioner
DX: R05.8 Other specified cough (principal); R06.02 Shortness of breath; R06.2 Wheezing
CPT/HCPCS: 71046

== ENCOUNTER 2023-10-04 14:55 | Emergency (ER) | payer MEDICARE, SELFPAY ==
[2023-10-04 14:58] VITALS: BP 146/88; PULSE 115; RESP 26; TEMP 36.1; O2SAT 99
--- NOTE | 2023-10-04 15:00 | RT.EKG_ITS ---
APPROVED REPORT Exam: Resting ECG Reason for Exam: sob Patient Location: E HR:113 bpm ECG Measurements Heart Rate 113 AXIS AR [id number] P [id number] QRSd 92 QRS 18 QT 323 T 72 QTc 442 Conclusion Atrial fibrillation 113 no stemi
[2023-10-04 15:33] VITALS: RESP 18
--- NOTE | 2023-10-04 15:40 | ED.GENADUL_ITS ---
Discharge Plan Disposition Patient Disposition: Home Condition: Stable Discharge Details Clinical Impression: Elevated brain natriuretic peptide (BNP) level, CHAVES (dyspnea on exertion), Breath shortness Primary Care Provider: Uri Maradiaga ED Provider: Jessica Mercedes Home Meds and New Rx's Prescriptions: New furosemide [Lasix] 20 mg tablet 20 mg PO DAILY Qty: 5 0RF No Action trazodone 50 mg tablet 50 mg PO QHS PRN (Reason: sleep) Qty: 60 0RF valacyclovir 1 gram tablet 2,000 mg PO Q12H PRN (Reason: outbreaks) Qty: 20 6RF Rx Instructions: Take for one day for each outbreak prednisone 20 mg tablet 40 mg PO DAILY Qty: 10 0RF amoxicillin 500 mg capsule 500 mg PO TID Qty: 21 0RF albuterol sulfate 90 mcg/actuation HFA aerosol inhaler 2 puff inhalation Q6H PRN (Reason: shortness of breath or wheezing) Qty: 8.5 5RF diphenoxylate-atropine [Lomotil] 2.5-0.025 mg tablet 1 tab PO BID PRN (Reason: diarrhea) Qty: 10 0RF promethazine 25 mg tablet 25 mg PO Q6H PRN (Reason: migraine headache) Qty: 30 0RF rimegepant 75 mg tablet,disintegrating 75 mg PO ONCE PRN (Reason: migraine headache) Qty: 10 0RF Rx Instructions: as a single dose rosuvastatin 5 mg tablet 5 mg PO QHS Qty: 90 3RF hydrochlorothiazide 12.5 mg tablet 12.5 mg PO DAILY Qty: 90 3RF Hold Instructions: Home Medication placed on hold at Doctor's office metoprolol succinate 25 mg tablet extended release 24 hr 25 mg PO BID Qty: 180 3RF Eliquis 5 mg tablet See Rx Instructions .ROUTE .COMPLEX Qty: 180 0RF Dose Instruction: TAKE 1 TABLET BY MOUTH TWICE DAILY Rx Instructions: TAKE 1 TABLET BY MOUTH TWICE DAILY acetaminophen [Tylenol Arthritis] 650 MG tablet extended release 1,300 mg PO PRN PRN (Reason: Pain) Patient Comments: 01/25/17 Takes 3 500mg every morning and every night. LR omeprazole 20 mg capsule,delayed release(DR/EC) Patient Comments: TAKE 1 CAPSULE BY MOUTH DAILY duloxetine 20 mg capsule,delayed release(DR/EC) PO multivitamin [Daily Multi-Vitamin] Tablet 1 tab PO DAILY potassium chloride [K+ Potassium] .ROUTE magnesium 200 mg tablet 200 mg PO DAILY Discharge Instructions Additional Instructions: Your BNP is elevated which is concerning for possible stress on your heart, commonly called heart failure I want you to take your weight every day Start Lasix 20 mg daily You need to follow-up with your primary care doctor on Saturday for reevaluation of your symptoms and repeat lab work. Your primary care doctor also needs to order an outpatient echocardiogram If you have worsening shortness of breath or low oxygen levels or any chest pain, please return to the emergency department Discharge Data Discharge Date/Time-TO BE ENTERED AT DEPARTURE: 10/04/23 17:31 HPI General Date/Time Provider Initiated Documentation: 10/04/23 15:12 . Limitations to Documentation: no limitations . Information obtained by: patient . HPI Narrative: 68-year-old female with past medical history including A-fib (on Eliquis), former smoker, presents for evaluation of shortness of breath. She reports that she has been having symptoms for a few weeks now. Went on vacation to [facility] and noted that she was having a lot of difficulty with walking around secondary to shortness of breath. She returned from vacation and saw her PCP because she was having more of a cough and wheezing. No fever. Cough nonproductive. She was provided steroids cough medication, albuterol and antibiotics. She does report some improvement in the cough. But reports that her shortness of breath is gotten more significant. She states that she normally walks to and from work every day, but has had significant difficulty walking secondary to shortness of breath. She reports some swelling in her feet but otherwise no significant lower extremity swelling. None of the shortness of breath is associated with chest pain. Related Data Home Medications Medication Instructions Recorded Confirmed acetaminophen 650 mg 1,300 mg PO PRN PRN Pain 08/25/12 10/04/23 tablet,extended release (Tylenol Arthritis) diphenoxylate-atropine 2.5 1 tab PO BID PRN diarrhea #10 tabs 01/17/21 10/04/23 mg-0.025 mg tablet (Lomotil) trazodone 50 mg tablet 50 mg PO QHS PRN sleep #60 tabs 02/09/22 10/04/23 valacyclovir 1 gram tablet 2,000 mg (2 x 1 gram) PO Q12H PRN 07/09/22 10/04/23 outbreaks #20 tabs promethazine 25 mg tablet 25 mg PO Q6H PRN migraine headache 08/10/22 10/04/23 #30 tabs rimegepant 75 mg disintegrating 75 mg PO ONCE PRN migraine 08/10/22 10/04/23 tablet headache #10 tabs rosuvastatin 5 mg tablet 5 mg PO QHS HLP #90 tabs 09/14/22 10/04/23 hydrochlorothiazide 12.5 mg tablet 12.5 mg PO DAILY #90 tabs 03/04/23 10/04/23 metoprolol succinate 25 mg 25 mg PO BID hypertension #180 tabs 07/18/23 10/04/23 tablet,extended release 24 hr apixaban 5 mg tablet (Eliquis) See Rx Instructions .Route 08/29/23 10/04/23 .COMPLEX #180 tabs albuterol sulfate 90 mcg/actuation 2 puff inhalation Q6H PRN 09/30/23 10/04/23 aerosol inhaler shortness of breath or wheezing #8.5 grams amoxicillin 500 mg capsule 500 mg PO TID #21 caps 09/30/23 10/04/23 prednisone 20 mg tablet 40 mg (2 x 20 mg) PO DAILY #10 tabs 09/30/23 10/04/23 duloxetine 20 mg capsule,delayed mg PO 10/04/23 release furosemide 20 mg tablet (Lasix) 20 mg PO DAILY #5 tabs 10/04/23 magnesium 200 mg tablet 200 mg PO DAILY 10/04/23 10/04/23 multivitamin (Daily Multi-Vitamin 1 tab PO DAILY 10/04/23 10/04/23 tablet) omeprazole 20 mg capsule,delayed mg 10/04/23 release potassium chloride .ROUTE 10/04/23 Previous Rx's Medication Instructions Recorded diphenoxylate-atropine 2.5 1 tab PO BID PRN diarrhea #10 tabs 01/17/21 mg-0.025 mg tablet (Lomotil) trazodone 50 mg tablet 50 mg PO QHS PRN sleep #60 tabs 02/09/22 valacyclovir 1 gram tablet 2,000 mg (2 x 1 gram) PO Q12H PRN 07/09/22 outbreaks #20 tabs promethazine 25 mg tablet 25 mg PO Q6H PRN migraine headache 08/10/22 #30 tabs rimegepant 75 mg disintegrating 75 mg PO ONCE PRN migraine 08/10/22 tablet headache #10 tabs rosuvastatin 5 mg tablet 5 mg PO QHS HLP #90 tabs 09/14/22 hydrochlorothiazide 12.5 mg tablet 12.5 mg PO DAILY #90 tabs 03/04/23 metoprolol succinate 25 mg 25 mg PO BID hypertension #180 tabs 07/18/23 tablet,extended release 24 hr apixaban 5 mg tablet (Eliquis) See Rx Instructions .Route 08/29/23 .COMPLEX #180 tabs albuterol sulfate 90 mcg/actuation 2 puff inhalation Q6H PRN 09/30/23 aerosol inhaler shortness of breath or wheezing #8.5 grams amoxicillin 500 mg capsule 500 mg PO TID #21 caps 09/30/23 prednisone 20 mg tablet 40 mg (2 x 20 mg) PO DAILY #10 tabs 09/30/23 furosemide 20 mg tablet (Lasix) 20 mg PO DAILY #5 tabs 10/04/23 Allergies Allergy/AdvReac Type Severity Reaction Status Date / Time Latex, Natural Rubber Allergy Intermediate Itching Verified 10/04/23 15:36 pravastatin AdvReac Intermediate Myalgias Verified 10/04/23 15:36 fentanyl AdvReac Unknown unknown Verified 10/04/23 15:36 General Stated Complaint: SOB MARQUIS: 3 Exam Narrative Exam Narrative: Review of Systems: All systems reviewed & are unremarkable except as noted in HPI and below Well-developed, no acute distress NCAT PERRL, normal conjunctiva Irregular, not tachycardic Unlabored respiratory effort, no hypoxia, no desaturation with ambulation, no increased work of breathing, no significant crackles appreciated Nondistended abdomen Extremities w/o deformity, no cyanosis 1+ edema bilateral lower extremities No rashes or lesions. no focal neurologic deficits Appropriate mood and affect Course Vital Signs Vital signs: Vital Signs Temperature 36.1 C L 10/04/23 14:58 Pulse 115 H 10/04/23 14:58 Respiratory Rate 26 H 10/04/23 14:58 Blood Pressure 146/88 H 10/04/23 14:58 Pulse Oximetry 99 10/04/23 14:58 Temperature 36.1 C L 10/04/23 14:58 Temperature Source Skin 10/04/23 14:58 Pulse 115 H 10/04/23 14:58 Respiratory Rate 18 10/04/23 15:33 Respiratory Effort Normal 10/04/23 15:33 Respiratory Depth Normal 10/04/23 15:33 Respiratory Pattern Normal 10/04/23 15:33 Blood Pressure 146/88 H 10/04/23 14:58 Blood Pressure Position Sitting 10/04/23 14:58 Pulse Oximetry 99 10/04/23 14:58 Oxygen Delivery Method Room Air 10/04/23 14:58 Oxygen Flow Rate 0 10/04/23 14:58 Pain Level 0 10/04/23 14:58 Medical Decision Making Urgent evaluation of dyspnea on exertion. Initial differential includes pneumonia, CHF, viral illness. Symptoms have been ongoing longer than her acute illness for the last few days. It was occurring prior to her vacation, so I doubt pulmonary embolism secondary to her travel. Patient has a history of A- fib and is anticoagulated, but does not have a history of heart failure. I reviewed her medical record and was unable to find a prior echo. Chest x-ray obtained, mild cardiomegaly noted without any signs of pulmonary edema or pleural effusion. She was ambulated around the emergency department does not have any significant desaturation. She is not in significant respiratory distress or requiring oxygen. She is currently on steroids which I believe explains her leukocytosis. She has some stable anemia. Her creatinine is at her baseline. Her BNP is noted to be significantly elevated at over 4000. I suspect that she has some new onset heart failure. She was given an IV dose of Lasix. Discussed treatment plan options with the patient, admission for diuresis though we are not going to be able to obtain an echo because it is the weekend, or going home with oral Lasix and close follow-up with PCP. Given that she is not going to be able to get the echo over the weekend, the patient has elected to go home. At this time I feel she is clinically stable for this plan. Will discharge her with 20 mg of Lasix daily. Recommended daily weights, monitoring her vital signs. Close return precautions advised. The patient reports that she can follow-up with her PCP on Saturday for further reevaluation and outpatient echocardiogram. Medical Records Medical records reviewed: Yes I reviewed the patient's medical records. Lab Data Lab results reviewed: Yes I reviewed the patient's lab results. Quality:SDOH Health Related Social Needs: No Data to Display PFSH All Active Problems (Updated 10/04/23 @ 17:11 by Jessica Mercedes MD) Breath shortness (Acute) CHAVES (dyspnea on exertion) (Acute) Elevated brain natriuretic peptide (BNP) level (Acute) SCC (squamous cell carcinoma) (Acute) Deviated nasal septum (Acute) Plantar fat pad atrophy (Acute) Tailor's bunion of left foot (Acute) Corns and callosities (Acute) Iron deficiency anemia, unspecified (Acute) Obesity, morbid (more than 100 lbs over ideal weight or BMI > 40) (Acute) Epidermoid cyst of skin (Acute) Chronic kidney disease (Chronic) Migraine without aura (Acute) Oral herpes simplex infection (Acute) Mass of right elbow (Acute) Arthritis/arthropathy of multiple joints (Acute) Hypokalemia (Acute) Headache (Acute) Pes anserinus bursitis of right knee (Acute) Greater trochanteric bursitis of right hip (Acute) DEPO MEDROL 04/22/23 Right leg weakness (Acute) Essential hypertension (Acute) Breast mass, right (Acute) Benign appearance, 2020 Diarrhea (Acute) Former smoker (Acute) Encounter for screening laboratory testing for COVID-19 virus (Acute) Seborrheic keratoses (Acute) back Lipoma (Acute) Numbness and tingling (Acute) Prediabetes (Acute) Chronic anticoagulation (Acute) Former cigarette smoker (Acute) Yearly CT screening - first in 2019 Myalgia (Acute) Arthralgia (Acute) Lumbosacral spondylosis without myelopathy (Acute) Restless leg syndrome (Acute 03/17/15) Polyp of colon (Acute) hyperplastic- colo [id number] Obesity (Acute) Hyperlipidemia (Acute) Heart murmur (Acute) Gastroesophageal reflux disease (Acute) Atrial fibrillation (Chronic) Permanent Anticoagulated on warfarin (Acute) A-fib INR goal 2-3 Medical History Tinnitus, left ear Diverticulosis Onychomycosis 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 Maternal Grandmother , 96 No problems noted. Mother , age 77 Alcohol abuse Bone cancer Father , age 74 Alcohol abuse Lung cancer Heart disease Hypertension Sister No problems noted. Son No problems noted. 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 Pets and animals: Yes (2 cats) Pets and animals: cat(s) Sexually active: No Do you think of yourself as: straight/heterosexual Current gender identity: female What is your relationship status?: never How often do you talk on the phone with friends or family?: once per week How often do you get together with friends or relatives?: once per week How often do you attend oriental orthodox or restorationism services?: decline to answer Do you belong to any clubs or organized social groups?: no Panel score (0-1 are the most socially isolated patients): 0 What type of physical activity do you participate in: walking and other Details: walk to work and back Duration: < 15 minutes/day Frequency: 3-4 times per week Aishwarya/Holiness: None Special aishwarya needs: No Seatbelt use: always Helmet use: No Drive intox or ride w/intox day haul or farm charter bus driver: No Do you feel safe at home: Yes Do you feel safe in your relationship?: Yes
[2023-10-04 15:52] LABS: Abs Immature Grans 0.22 10^3/uL (0.0-0.06); Absolute Basophil Count 0.02 10^3/uL (0.0-0.2); Absolute Lymphocyte Count 0.78 10^3/uL (1.2-3.4); Basophils % 0.2 %; HCT 34.9 % (36.0-46.0); HGB 10.7 g/dL (11.2-15.7); Lymphocytes % 6.9 %; MCH 28.9 pg (27.0-33.0); MCHC 30.7 % (32.0-36.0); MCV 94 fL (80-95); MPV 10.3 fL (8.0-11.0); Monocytes % 1.8 %; Neutrophils % 89.1 %; Nucleated RBC 0.4 % (0.0-0.3); Platelet Count 255 10^3/uL (130-400); RDW 15.9 % (11.7-14.6); RDW-SD 53.5 fL; WBC 11.27 10^3/uL (4.4-10.8)
[2023-10-04 15:53] LABS: Absolute Neutrophil Count 10.04 10^3/uL (1.2-6.7)
--- NOTE | 2023-10-04 16:00 | DI.RAD_ITS ---
Exam(s) XR CHEST 2V PA LATERAL EXAM: XR CHEST 2V PA LATERAL CLINICAL HISTORY: sob TECHNIQUE: 2D digital imaging was performed of the chest. Two images were obtained. PA and lateral views were obtained. COMPARISON: CR XR CHEST 2V PA LATERAL from 09/30/2023 FINDINGS: MEDIASTINUM: Normal. HEART: Normal. PULMONARY VASCULATURE: Normal. LUNGS: Clear. PLEURAL SPACE: No pleural effusion or pneumothorax. BONE:Within normal limits for the patient's age. Old healed right rib fractures. OTHER FINDINGS:Normal. IMPRESSION: No acute pulmonary findings. DATA REPOSITORY: RADIATION DOSE DELIVERED:
[2023-10-04 16:19] LABS: ALT 54 U/L (14-59); AST 33 U/L (15-37); Alkaline Phosphatase 69 U/L (46-116); Anion Gap 10.9 mmol/L (3-11); BUN 48 mg/dL (7-18); Bilirubin, Total 0.4 mg/dL (0.2-1.0); CO2 27.1 mmol/L (21.0-32.0); Calcium 9.2 mg/dL (8.5-10.1); Chloride 103 mmol/L (98-107); Estimated GFR 26.54 (mL/min/1.73m2); Glucose 126 mg/dL (74-106); NT-proBNP 4740 pg/mL (<300); Potassium 4.4 mmol/L (3.5-5.1); Sodium 141 mmol/L (136-145); Total Protein 8.1 g/dL (6.4-8.2); Troponin I < 50 ng/L (< or =60)
[2023-10-04] MEDS: Furosemide 100 MG/10 ML VIAL 80 MG IVP (17:18)
[2023-10-04 17:26] VITALS: BP 143/80; PULSE 99; RESP 18; O2SAT 100
[2023-10-04 17:28] VITALS: BP 143/80; PULSE 99; RESP 18; TEMP 36.1; O2SAT 100
[2023-10-04 17:29] VITALS: BP 143/80; PULSE 99; RESP 18; TEMP 36.1; O2SAT 100
== END 2023-10-04 17:31 | disposition home or self-care (01) ==
PROVIDERS: Emergency Provider Emergency Medicine; PCP Family Medicine
DX: R06.09 Other forms of dyspnea (principal); R79.89 Other specified abnormal findings of blood chemistry; I51.7 Cardiomegaly; I48.91 Unspecified atrial fibrillation; Z79.01 Long term (current) use of anticoagulants; Z87.891 Personal history of nicotine dependence
CPT/HCPCS: 36415; 80053; 93005; 96374; 99285; 71046; 83880; 84484; 85025; 93010; 99284; J1940

== ENCOUNTER 2023-10-07 18:54 | Outpatient (CLI) | payer MEDICARE, SELFPAY ==
[2023-10-07 16:39] LABS: D-Dimer 324 ng/mlFEU (<500)
== END 2023-10-07 18:55 | disposition home or self-care (01) ==
LOC: LBO 18:54
PROVIDERS: PCP Family Medicine; Visit Provider Family Medicine
DX: R06.09 Other forms of dyspnea (principal)
CPT/HCPCS: 36415; 85379

== ENCOUNTER → 2023-10-15 03:22 | Outpatient (CLI) | payer MEDICARE, SELFPAY ==
--- NOTE | 2023-10-15 06:15 | DI.CT_ITS ---
Exam(s) CT CHEST WO EXAM: CT CHEST WO CLINICAL HISTORY: Unexplained dyspnea on exertion, negative D-dimer,r06.09. TECHNIQUE: Imaging protocol: Axial computed tomography images were obtained and coronal and sagittal reformatted images were created and reviewed. CONTRAST MATERIAL: Noncontrast COMPARISON: CT CT CHEST LUNG CANCER SCREEN from 05/07/2022 CR XR CHEST 2V PA LATERAL from 09/30/2023 CR XR CHEST 2V PA LATERAL from 10/04/2023 FINDINGS: Exam is mildly limited by motion. Pulmonary parenchyma: No consolidation. No suspicious nodules. Emphysema: None visible. Tracheobronchial tree: No mucous plugging. No bronchiectasis . Interstitial changes: None. Pleura: No effusion or pneumothorax. Heart: The heart is moderately dilated. Mitral annular calcifications. Calcifications at aortic dominique ve. The coronary arteries show mildcalcifications. Aorta: Thoracic aorta non-dilated. Mildatherosclerotic changes. Lymph nodes: No enlarged lymph nodes. Bones: Degenerative changes are seen. No evidence of compression fracture. Upper abdomen: Unremarkable. Soft tissues: Unremarkable. IMPRESSION: No acute abnormality. Moderate cardiac dilatation. Mitral annular and aortic valve calcifications. RADIATION DOSE DELIVERED: 657.82mGy.cm Total DLP 657.82mGy.cm Total DLP DATA REPOSITORY: All CT scans at this facility are submitted to the National Radiology Data Registry (NRDR) Dose Index Registry (DIR) with the [employer] (ACR). RADIATION OPTIMIZATION: All CT scans at this facility use at least one of these dose optimization te chniques: automated exposure control; mA and/or kV adjustment per patient size (includes targeted exa ms where dose is matched to clinical indication); or iterative reconstruction.
== END ==
PROVIDERS: PCP Family Medicine; Visit Provider Family Medicine
DX: R06.09 Other forms of dyspnea (principal)
CPT/HCPCS: 71250

== ENCOUNTER → 2023-10-22 00:10 | Outpatient (CLI) | payer MEDICARE, SELFPAY ==
--- NOTE | 2023-10-22 06:45 | DI.MRI_ITS ---
Exam(s) MR LOWER JOINT RT WO EXAM: MR LOWER JOINT RT WO CLINICAL HISTORY: pain,greater trochanteric bursitis rt hip,m70.61 TECHNIQUE: Multiplanar multisequence MRI of Pelvis was performed COMPARISON: CR XR HIP PELVIS ADULT BL from 04/22/2023 FINDINGS: Bones: There is no fracture or contusion pattern. No bone marrow edema is seen. Small Enthesophytes noted at both greater trochanters. Joints: No significant joint effusion or gross labral defect is present. Lateral to the right acetab ulum, there is thickening and fluid in the ileofemoral ligament. The SI joints are unremarkable. Th e symphysis pubis shows spurring and sclerosis. Musculotendinous structures: There is minimal edema at the insertion of the gluteus medius tendon on the greater trochanter. No fluid visible in the trochanteric bursa. Intrapelvic structures demonstrate no significant abnormality. IMPRESSION: Mild edema at the gluteus medius insertion on the greater trochanter. Thickening and fluid within th e right iliofemoral ligament. DATA REPOSITORY:
== END ==
PROVIDERS: PCP Family Medicine; Visit Provider Student in an Organized Health Care Education/Training Program
DX: M70.61 Trochanteric bursitis, right hip (principal)
CPT/HCPCS: 73721

== ENCOUNTER → 2023-10-23 03:45 | Outpatient (CLI) | payer MEDICARE, SELFPAY ==
--- NOTE | 2023-10-23 12:30 | DI.US_ITS ---
APPROVED REPORT EXAM: Comprehensive 2D, Doppler, and color-flow Echocardiogram Patient Location: Out-Patient Policy Change Clerks Supervisor: Caitlyn Magdaleno RDCS (AE) Indications: Dyspnea on exertion Other Information Study Quality: Adequate Conclusion Mild concentric left ventricular hypertrophy. Ejection fraction is 55%. Wall motion is normal Normal right ventricular size and function Left atrium is moderately dilated. Right atrium is mildly dilated Aortic valve is calcified and trileaflet without stenosis or regurgitation Mitral annular calcification. Moderate mitral regurgitation Normal tricuspid valve with moderate regurgitation. Estimated right ventricular systolic pressure is 46 mmHg Wall motion Left Ventricle The left ventricle is normal size. The left ventricular systolic function is normal. The left ventric ular ejection fraction is within the normal range. Mild concentric left ventricular hypertrophy. Ther e is normal LV segmental wall motion. There is no ventricular septal defect visualized. LVEF is 55%. Right Ventricle The right ventricle is normal size. The right ventricular systolic function is normal. Atria Left atrium is moderately dilated. Right atrium is mildly dilated. The interatrial septum is intact w ith no evidence for an atrial septal defect. Aortic Valve Aortic valve is calcified. Aortic valve is trileaflet. No hemodynamically significant valvular aortic stenosis. No aortic regurgitation is present. Mitral Valve Mild mitral to moderate annular calcification. No evidence of mitral valve stenosis. Moderate mitral regurgitation. Tricuspid Valve The tricuspid valve is normal in structure. There is no tricuspid valve stenosis. Moderate tricuspid regurgitation. The RVSP is 45.9_ mmHg. Pulmonic Valve The pulmonary valve is normal in structure. There is no pulmonic valvular stenosis. There is no pulmo mel valvular regurgitation. Great Vessels The aortic root is normal in size. The ascending aorta is normal in size. Aortic arch is normal in ca liber. IVC is normal in size and collapses >50% with inspiration. Pericardium There is no pericardial effusion. 2D Dimensions IVSD d PLAX 1.26 cm F: 0.6-1.0 Ao Root d 2.69 cm F: 2.7 - 3.3 LVPW d PLAX 1.28 cm F: 0.6 - 1.0 Ao Asc Diam d 2.88 cm F: 2.3 - 3.1 LVID d PLAX 5.18 cm F: 3.8 - 5.2 LVDs 3.78 cm F: 2.2 - 3.5 LV EF Teichholz 52.4 % FS 27.06 % LV EDV (Teich) 128.1 mL LV ESV (Teich) 61.0 mL M-Mode TAPSE 2.50 cm (M/F) >1.7 Auto EF LV EDV A4C 85.7 mL LV EDV A2C 90.5 mL LV EDV BP 87.3 mL LV ESV A4C 39.5 mL LV ESV A2C 40.0 mL LV ESV BP 40.0 mL LVEF(%) A4C 53.9 % LVEF(%) A2C 55.8 % LVEF(%) BP 54.2 % LV SV A4C 46.1 ml LV SV A2C 50.5 ml LV SV BP 47.3 ml LV CO A4C 4.0 L/min LV CO A2C 4.2 L/min LV CO BP 4.1 L/min HR A4C 87.59 BPM HR A2C 82.91 BPM LV EDV Index (BP) LA Volume LA Length A4C 6.8 cm LA Length A2C 6.4 cm LA Area A4C s 23.13 cm2 LA Area A2C s 24.34 cm2 LA Vol A4C A-L 67.01 mL LA Vol A2C A-L 78.01 mL LA Vol Biplane A-L 74.1 mL LA Vol/BSA A4C A-L LA Vol/BSA A2C A-L LA Vol/BSA BP A-L 36.3 mL/m2 LA Vol A4C MOD 62.6 mL LA Vol A2C MOD 72.5 mL LA Vol BP MOD 69.0 mL RA Volume RA Area A4C 26.2 cm2 RA ESV A4C (A-L) 85.7mL RA Vol/BSA A4C A-L RA Length A4C 6.8 cm RA ESV A4C (MOD) 81.1mL LV Diastology MV E' medial 0.113 (>0.07 m/s) MV E Vmax 1.25 (0.4-1.3 m/s) MV E/E' MED 11.00 (<14) MV E' lateral 0.113 (>0.1 m/s) MV E/E' LAT 11.00 (<14) MV E' Average 0.113 m/s MV E/E'(average) 11.00 Aortic Valve AoV Vmax 2.02 m/s LVOT Vmax 1.12 m/s AoV Peak Grad 16.4 mmHg LVOT Peak Grad 5.0 mmHg AoV Area (Vmax) 1.49 cm2 LVOT VTI 0.199 m AoV VTI 0.360 m LVOT Mean Grad 2.9 mmHg AoV Mean Eugenio. 1.37 m/s LVOT SV 53.60 mL AoV Mean Grad 8.9 mmHg LVOT Diam s 1.85 cm AoV Area (VTI) 1.49 cm2 Velocity Ratio 0.55 Mitral Valve MV DT 190 (160-240 msec) MV Vmax TIPS 1.50 m/s MV Mean Grad 3.7 (<2mmHg) MV VTI 0.362 m Pulmonary Valve PV Vmax 1.12 (0.5-1.5 m/s) RVOT Vmax 0.96 m/s PV Peak Grad 5.1 mmHg RVOT Peak Gr. 3.7 mmHg PV Mean Eugenio 0.78 m/s RVOT VTI 0.203 m PV Mean Grad 2.7 mmHg RVOT Mean Gr. 2.5 mmHg Tricuspid Valve RA Pressure 3.00 mmHg TR Vmax 3.27 m/s TV S' 0.11 m/s TR Peak Grad 42.8 mmHg RVSP (TR) 45.9 mmHg
== END ==
PROVIDERS: PCP Family Medicine; Visit Provider Family Medicine
DX: R06.09 Other forms of dyspnea (principal); I51.7 Cardiomegaly; I34.0 Nonrheumatic mitral (valve) insufficiency; I36.1 Nonrheumatic tricuspid (valve) insufficiency
CPT/HCPCS: 93306

== ENCOUNTER 2023-11-29 12:30 | Outpatient (CLI) | payer MEDICARE, SELFPAY ==
[2023-11-29 13:31] LABS: NT-proBNP 1335 pg/mL (<300)
[2023-11-29 15:25] LABS: Anion Gap 8.6 mmol/L (3-11); BUN 25 mg/dL (7-18); CO2 28.4 mmol/L (21.0-32.0); CREATININE 1.7 mg/dL (0.55-1.02); Calcium 9.3 mg/dL (8.5-10.1); Chloride 103 mmol/L (98-107); Estimated GFR 32.26 (mL/min/1.73m2); Glucose 108 mg/dL (74-106); Potassium 3.7 mmol/L (3.5-5.1); Sodium 140 mmol/L (136-145)
== END 2023-11-29 12:31 | disposition home or self-care (01) ==
LOC: LBO 12:31
PROVIDERS: PCP Family Medicine; Visit Provider Nurse Practitioner Family
DX: I50.9 Heart failure, unspecified (principal); I10 Essential (primary) hypertension
CPT/HCPCS: 36415; 80048; 83880

== ENCOUNTER 2023-12-30 04:23 | Outpatient (CLI) | payer MEDICARE, SELFPAY ==
[2023-12-30] MEDS: Inhaler, Assist Device 1 EACH MC (16:46)
[2023-12-30] MEDS: Levalbuterol HFA 15 GM INH 4 PUFF IH (16:46)
--- NOTE | 2023-12-31 13:53 | W.PFT ---
Date of service: 12/30/23 Time of Service: 16:00 Pulmonary Function Test Result Requesting Provider Gage Gandara Indications: CHAVES Impression Normal spirometry with normal FEV1 and FVC. Normal lung volumes with no air trapping. Normal diffusion. Normal flow volume loop. Clinical Correlation therefore is recommended.
== END 2023-12-30 04:24 | disposition home or self-care (01) ==
PROVIDERS: PCP Family Medicine
DX: R06.09 Other forms of dyspnea (principal); R05.3 Chronic cough
CPT/HCPCS: 00123; 94060; 94726; 94729

== ENCOUNTER 2024-01-24 13:57 | Outpatient (CLI) | payer MEDICARE, SELFPAY ==
[2024-01-24 11:25] LABS: Anion Gap 9.2 mmol/L (3-11); BUN 20 mg/dL (7-18); CO2 26.8 mmol/L (21.0-32.0); CREATININE 1.6 mg/dL (0.55-1.02); Calcium 9.5 mg/dL (8.5-10.1); Chloride 102 mmol/L (98-107); Glucose 116 mg/dL (74-106); Potassium 4.8 mmol/L (3.5-5.1); Sodium 138 mmol/L (136-145)
== END 2024-01-24 13:58 | disposition home or self-care (01) ==
LOC: LBO 13:58
PROVIDERS: PCP Nurse Practitioner Family; Visit Provider Nurse Practitioner Family
DX: I50.9 Heart failure, unspecified (principal)
CPT/HCPCS: 36415; 80048

== ENCOUNTER 2024-03-02 03:15 | Outpatient (CLI) | payer MEDICARE, SELFPAY ==
[2024-03-02 13:35] LABS: Anion Gap 9.9 mmol/L (3-11); BUN 24 mg/dL (7-18); CO2 29.1 mmol/L (21.0-32.0); CREATININE 1.7 mg/dL (0.55-1.02); Calcium 9.5 mg/dL (8.5-10.1); Chloride 103 mmol/L (98-107); Estimated GFR 32.26 (mL/min/1.73m2); Glucose 110 mg/dL (74-106); Potassium 4.1 mmol/L (3.5-5.1); Sodium 142 mmol/L (136-145)
[2024-03-02 13:58] LABS: NT-proBNP 1097 pg/mL (<300)
== END 2024-03-02 03:16 | disposition home or self-care (01) ==
LOC: LBO 03:15
PROVIDERS: Absent Provider Nurse Practitioner Family; PCP Nurse Practitioner Family; Referring Provider Nurse Practitioner Family; Visit Provider Nurse Practitioner Family
DX: I50.9 Heart failure, unspecified (principal); M47.817 Spondylosis without myelopathy or radiculopathy, lumbosacral region; M25.50 Pain in unspecified joint; G47.00 Insomnia, unspecified
CPT/HCPCS: 36415; 80048; 83880

== ENCOUNTER → 2024-03-30 08:35 | Outpatient (BNVA) | payer MEDICARE, SELFPAY | PROVIDERS: PCP Nurse Practitioner Family; Referring Provider Nurse Practitioner Family | DX: M70.62 Trochanteric bursitis, left hip (principal) | CPT/HCPCS: 20610; J1010 ==

== ENCOUNTER 2024-04-08 01:03 | Outpatient (CLI) | payer MEDICARE, SELFPAY ==
--- NOTE | 2024-04-08 08:54 | DI.RAD_ITS ---
Exam(s) XR LUMBAR SPINE COMP W FLEX/EX EXAM: XR LUMBAR SPINE COMP W FLEX/EX CLINICAL HISTORY: back pain,lumbar spondylosis, m47.817. TECHNIQUE: 2D digital imaging was performed. Five views. COMPARISON: No exams were available for comparison FINDINGS: BONES: No fracture or destructive lesion. Vertebral body heights are maintained. Small endplate os teophytes. Moderate facet hypertrophy identified . DISKS: Mild narrowing of the L5-S1 disc space. The remaining intervertebral disc spaces are maintain ed. ALIGNMENT: Lumbar spinal alignment is within normal limits. No spondylolysis or spondylolisthesis. SOFT TISSUE: Aortic calcified and normal in diameter. Right upper quadrant surgical clips. Ingested tablets. Bowel gas pattern is normal. IMPRESSION: Degenerative changes, greatest at L5-S1. DATA REPOSITORY: RADIATION DOSE DELIVERED:
== END 2024-04-08 01:23 ==
PROVIDERS: PCP Nurse Practitioner Family; Visit Provider Nurse Practitioner Family
DX: M47.817 Spondylosis without myelopathy or radiculopathy, lumbosacral region (principal)
CPT/HCPCS: 72114

== ENCOUNTER 2024-05-11 14:51 | Outpatient (CLI) | payer MEDICARE, SELFPAY ==
[2024-05-11 16:07] LABS: Anion Gap 9.4 mmol/L (3-11); BUN 22 mg/dL (7-18); CO2 30.6 mmol/L (21.0-32.0); CREATININE 1.9 mg/dL (0.55-1.02); Calcium 9.8 mg/dL (8.5-10.1); Chloride 102 mmol/L (98-107); Estimated GFR 28.23 (mL/min/1.73m2); Glucose 101 mg/dL (74-106); Potassium 4.5 mmol/L (3.5-5.1); Sodium 142 mmol/L (136-145)
== END 2024-05-11 14:52 | disposition home or self-care (01) ==
LOC: LBO 14:51
PROVIDERS: PCP Nurse Practitioner Family; Visit Provider Family Medicine
DX: I50.9 Heart failure, unspecified (principal)
CPT/HCPCS: 36415; 80048

== ENCOUNTER 2024-06-26 11:40 | Outpatient (CLI) | payer MEDICARE, SELFPAY ==
[2024-06-26 10:52] LABS: Anion Gap 6.4 mmol/L (3-11); BUN 21 mg/dL (7-18); CO2 30.6 mmol/L (21.0-32.0); CREATININE 1.7 mg/dL (0.55-1.02); Calcium 9.9 mg/dL (8.5-10.1); Chloride 105 mmol/L (98-107); Estimated GFR 32.26 (mL/min/1.73m2); Glucose 127 mg/dL (74-106); Potassium 4.6 mmol/L (3.5-5.1); Sodium 142 mmol/L (136-145)
== END 2024-06-26 11:41 | disposition home or self-care (01) ==
LOC: LBO 11:41
PROVIDERS: PCP Nurse Practitioner Family; Visit Provider Nurse Practitioner Family
DX: I50.9 Heart failure, unspecified (principal)
CPT/HCPCS: 36415; 80048

== ENCOUNTER 2024-08-17 02:02 | Outpatient (CLI) | payer MEDICARE, SELFPAY ==
--- NOTE | 2024-08-17 06:28 | DI.MRI_ITS ---
Exam(s) MR LUMBAR SPINE WO EXAM: MR LUMBAR SPINE WO CLINICAL HISTORY: worsening low back pain,lumbosacral spondylosis w/o myelopathy,[id number]. TECHNIQUE: Multiplanar multisequence MRI of the Lumbar spine was performed. CR XR LUMBAR SPINE COMP W FLEX/EX from 04/08/2024 FINDINGS: It is noted that the patient had to be repositioned during the course of this examination. Conus medullaris is at the normal level and without evidence of mass. There is also no evidence of subjacent clumping of intrathecal nerve roots to suggest arachnoiditis. The distal thecal sac appear s unchanged from the previous 2019 study. There there is no evidence of Tarlov intrasacral cysts nor other significant findings within the sacral canal Bones:There are no fractures nor ominous osseous lesions in the lumbar vertebral bodies and visualize d sacrum. With respect to the individual disc space levels... T11-12: There is unchanged mild central subligamentous annular bulging. Spinal canal dimensions are within normal limits. No significant foraminal stenosis. T12-L1: Unremarkable L1-2: Normal disc height and signal. No disc herniation nor central canal stenosis.No foraminal steno sis. No significant facet arthropathy. L2-3: Normal disc height. No disc herniation nor central canal stenosis.No foraminal stenosis.No face t arthropathy. L3-4: Normal disc height. No disc herniation or central canal stenosis.No foraminal stenosis.No face t arthropathy. L4-5: Normal disc height. Very mild anterolisthesis of L4 upon L5, unchanged from previous and relat ed to some facet arthropathy. There is no disc herniation or central canal stenosis and there is no foraminal stenosis. L5-S1: Normal disc height and signal. There are mild Modic type 2 sub endplate fatty marrow changes confined to the lateral right side of the disc space. There is asymmetric annular bulging in the ephraim or of the exiting right neural foramen at this level. This exhibits minimal if any significant stevens e from the 2019 study. There does not appear to be significant foraminal stenosis on on this side. There is mild foraminal stenosis on the opposite-left side noted which is related to some facet arthr opathy. Soft tissues: paraspinal soft tissues appear unremarkable. IMPRESSION: 1. Minimal if any significant change compared to the prior MRI scan of September 2018. 2. There is asymmetric right-sided annular bulging in the floor of the exiting right neural foramen a t L5-S1 level, but this exhibiting minimal change from the 2019 study and not associated with signifi cant foraminal stenosis. There is, however, mild foraminal stenosis on the opposite-left side at thi s level related to some facet arthropathy. There is no annular bulging on this side. 3. Very mild degenerative anterolisthesis of L4 upon L5 related to facet arthropathy. No disc space narrowing at this level and no evidence of significant canal stenosis nor foraminal stenosis at this level. DATA REPOSITORY:
== END 2024-08-17 02:22 ==
LOC: DI 02:02
PROVIDERS: PCP Nurse Practitioner Family; Visit Provider Nurse Practitioner Family
DX: M47.817 Spondylosis without myelopathy or radiculopathy, lumbosacral region (principal)
CPT/HCPCS: 72148

== ENCOUNTER 2024-08-24 09:58 | Observation (INO) | payer MEDICARE, SELFPAY ==
[2024-08-24] VITALS (7 sets, daily range): BP systolic 114–141; BP diastolic 78–81; PULSE 88–112; RESP 14–22; TEMP 35.9–36.5; O2SAT 88–97
--- NOTE | 2024-08-24 10:00 | RT.EKG_ITS ---
APPROVED REPORT Exam: Resting ECG Reason for Exam: CHF/SOB Patient Location: E HR:96 bpm ECG Measurements Heart Rate 96 AXIS MT [id number] P [id number] QRSd 98 QRS 9 QT 363 T 44 QTc 460 Conclusion Atrial fibrillation...V-rate 80-115, irreg A-activity No STEMI
--- NOTE | 2024-08-24 10:15 | DI.RAD_ITS ---
Exam(s) XR CHEST 2V PA LATERAL EXAM: XR CHEST 2V PA LATERAL CLINICAL HISTORY: Chest pain TECHNIQUE: 2D digital imaging was performed of the chest. Two images were obtained. PA and lateral views were obtained. COMPARISON: CR XR CHEST 2V PA LATERAL from 10/04/2023 FINDINGS: MEDIASTINUM: Normal. HEART: Mildly enlarged. PULMONARY VASCULATURE: Normal. LUNGS: Clear. PLEURAL SPACE: No pleural effusion or pneumothorax. BONE:Within normal limits for the patient's age. OTHER FINDINGS:Normal. IMPRESSION: No acute pulmonary findings. DATA REPOSITORY: RADIATION DOSE DELIVERED:
--- NOTE | 2024-08-24 10:15 | ED.GENADUL_ITS ---
Discharge Plan Disposition Patient Disposition: Admit to [facility] Discharge Details Clinical Impression: Acute heart failure with preserved ejection fraction Admit Date/Time: 08/24/24 12:49 Admit Provider: Kamran Lambert Attending Provider: Kamran Lambert Primary Care Provider: Adelita Leavitt ED Provider: Kaushal Moreno HPI General Date/Time Provider Initiated Documentation: 08/24/24 10:15 . HPI Narrative: MDM This is an overall well-appearing normothermic and nontachycardic 69-year-old female with unintentional weight gain leg swelling concerning for worsening of her heart failure versus ACS. Less likely pneumonia. Patient is low risk for PE however given lack of significant bilateral B-lines I sent a D-dimer. No emesis to suggest esophageal rupture. Equal breath sounds so my suspicion is low for pneumothorax in the absence of trauma. Given her atrial fibrillation this certainly could be the cause of her heart failure with preserved ejection fraction. Her presentation seems similar to prior presentation at [facility] which she had B-lines at the bilateral bases. Will reassess patient's labs. She is making urine so I do not feel that she has anuric renal failure. 12:30 PM Upon ambulation patient's pulse increased to 112 bpm. Her oxygen decreased to 90%. Given her age and her elevated heart rate with ambulation and hypoxia we will keep the patient overnight and reach out to the hospitalist. 12:45 PM I was in touch with Dr. Lambert from the hospitalist service who graciously agreed to accept the patient for hospitalization. Chronic conditions affecting the care of the patient: Atrial fibrillation on apixaban History obtained from an outside historian: N/A External record review: [facility] Diagnostic interpretations performed by me: Per my independent interpretation chest x-ray shows: Per my independent interpretation EKG shows: Rate controlled atrial fibrillation at a rate of 96. Normal axis. Intervals within normal limits. No ST segment abnormalities. ]Medications: Furosemide Social determinants of health affecting disposition: N/A Management discussed with: Hospitalist Treatment/interventions considered: Discharge Response to therapies provided: Improved symptoms in the ED HPI This is a 69-year-old female with a history of atrial fibrillation on apixaban and heart failure with preserved ejection fraction right emergency by via private vehicle in the setting of increasing shortness of breath with exertion for the past approximately 1 month. Patient notes that over the past month she has gained 20 pounds. She has 3 pillow orthopnea. She feels like this is si milar to prior presentations when she has had exacerbations of her heart failure. She has never had a PE nor DVT. She denies chest pain fevers nausea vomiting. She says that she has been urinating normally. She has been taking her medications as prescribed and increased her furosemide dose this morning which has not helped. She has had a dry cough. She denies routine tobacco, ethanol, and illicits. Exam General: Well-appearing in no acute distress speaking in complete sentences. Head: Normocephalic, atraumatic. Eye: Extraocular eye movements intact. No conjunctival injection. No scleral icterus. Ear, nose, mouth, throat: Grossly normal inspection. Normal voice, handling secretions normally. Neck: Trachea midline. Cardiovascular: Well-perfused distal extremities. Irregularly irregular Respiratory: Nonlabored respiration. Bibasilar trace crackles Gastrointestinal: Nondistended abdomen. Soft. Musculoskeletal: 1+ bilateral lower extremity pitting edema. Moving all 4 extremities spontaneously. Skin: Normal for age and race, grossly normal temperature and turgor. No acute rash. Neurologic: Alert and appropriate, no apparent acute deficits. Psychiatric: Mood and manner are appropriate. Grooming and personal hygiene are appropriate. Related Data Home Medications ?Medication ?Instructions ?Recorded ?Confirmed acetaminophen 650 mg 1,300 mg PO PRN PRN Pain 08/25/12 08/24/24 tablet,extended release (Tylenol Arthritis) diphenoxylate-atropine 2.5 1 tab PO BID PRN diarrhea #10 tabs 01/17/21 08/24/24 mg-0.025 mg tablet (Lomotil) valacyclovir 1 gram tablet 2,000 mg (2 x 1 gram) PO Q12H PRN 07/09/22 08/24/24 outbreaks #20 tabs promethazine 25 mg tablet 25 mg PO Q6H PRN migraine headache 08/10/22 08/24/24 #30 tabs metoprolol succinate 25 mg 25 mg PO BID hypertension #180 tabs 07/18/23 08/24/24 tablet,extended release 24 hr magnesium 200 mg tablet 200 mg PO DAILY 10/04/23 08/24/24 multivitamin (Daily Multi-Vitamin 1 tab PO DAILY 10/04/23 08/24/24 tablet) rosuvastatin 5 mg tablet 5 mg PO QHS HLP #90 tabs 10/11/23 08/24/24 amlodipine 2.5 mg tablet 2.5 mg PO DAILY 01/23/24 08/24/24 trazodone 50 mg tablet 50 mg PO QHS PRN sleep #60 tabs 02/27/24 08/24/24 apixaban 5 mg tablet (Eliquis) 5 mg PO BID AFIB #180 tabs 04/03/24 08/24/24 ferrous sulfate 325 mg (65 mg 325 mg PO Q OTHER DAY 04/03/24 08/24/24 iron) tablet (Iron (ferrous sulfate)) benzonatate 100 mg capsule 100 mg PO BID-TID PRN cough #20 04/15/24 08/24/24 caps potassium chloride 20 mEq 40 meq (2 x 20 mEq) PO TID #90 tabs 06/09/24 08/24/24 tablet,extended release spironolactone 25 mg tablet See Rx Instructions .Route 07/21/24 08/24/24 .COMPLEX #90 tabs furosemide 40 mg tablet 40 mg PO QAM #90 tabs 08/19/24 08/24/24 omeprazole 40 mg capsule,delayed 40 mg PO BID 08/19/24 08/24/24 release tramadol 50 mg tablet 50 mg PO BID PRN pain #60 tabs 08/21/24 08/24/24 Previous Rx's ?Medication ?Instructions ?Recorded diphenoxylate-atropine 2.5 1 tab PO BID PRN diarrhea #10 tabs 01/17/ mg-0.025 mg tablet (Lomotil) valacyclovir 1 gram tablet 2,000 mg (2 x 1 gram) PO Q12H PRN 07/09/22 outbreaks #20 tabs promethazine 25 mg tablet 25 mg PO Q6H PRN migraine headache 08/10/22 #30 tabs metoprolol succinate 25 mg 25 mg PO BID hypertension #180 tabs 07/18/23 tablet,extended release 24 hr rosuvastatin 5 mg tablet 5 mg PO QHS HLP #90 tabs 10/11/23 trazodone 50 mg tablet 50 mg PO QHS PRN sleep #60 tabs 02/27/24 apixaban 5 mg tablet (Eliquis) 5 mg PO BID AFIB #180 tabs 04/03/24 benzonatate 100 mg capsule 100 mg PO BID-TID PRN cough #20 04/15/24 caps potassium chloride 20 mEq 40 meq (2 x 20 mEq) PO TID #90 tabs 06/09/24 tablet,extended release spironolactone 25 mg tablet See Rx Instructions .Route 07/21/24 .COMPLEX #90 tabs furosemide 40 mg tablet 40 mg PO QAM #90 tabs 08/19/24 tramadol 50 mg tablet 50 mg PO BID PRN pain #60 tabs 08/21/24 Allergies Allergy/AdvReac Type Severity Reaction Status Date / Time Latex, Natural Rubber Allergy Intermediate Itching Verified 08/24/24 10:09 pravastatin AdvReac Intermediate Myalgias Verified 08/24/24 10:09 fentanyl AdvReac Unknown unknown Verified 08/24/24 10:09 General Stated Complaint: SOB MARQUIS: 3 Course Vital Signs Vital signs: Vital Signs Temperature 36.5 C 08/24/24 10:07 Pulse 88 08/24/24 10:07 Respiratory Rate 22 08/24/24 10:07 Blood Pressure 141/81 H 08/24/24 10:07 Pulse Oximetry 92 08/24/24 10:07 Temperature 36.5 C 08/24/24 10:07 Temperature Source Oral 08/24/24 10:07 Pulse 88 08/24/24 10:07 Respiratory Rate 22 08/24/24 10:07 Blood Pressure 141/81 H 08/24/24 10:07 Blood Pressure Position Sitting 08/24/24 10:07 Pulse Oximetry 92 08/24/24 10:07 Oxygen Delivery Method Room Air 08/24/24 10:07 Oxygen Flow Rate 0 08/24/24 10:07 Pain Level 0 08/24/24 10:07 Medical Decision Making Quality:SDOH Health Related Social Needs: No Data to Display PFSH All Active Problems (Updated 08/24/24 @ 15:04 by Ellie Lynn NP) Discharge planning issues (Acute) Acute on chronic heart failure with preserved ejection fraction (Acute) Acute heart failure with preserved ejection fraction (Acute) Facet arthropathy, lumbar (Acute) Anterolisthesis of lumbosacral spine (Acute) Tricuspid valve insufficiency (Acute) Mitral valve insufficiency (Chronic) Cardiac microvascular disease (Acute) Chronic back pain (Acute) Sinusitis (Acute) Cough (Acute) Sinusitis (Acute) Hoarseness of voice (Acute) Lower extremity neuropathy (Acute) Chronic cough (Acute) Dyspnea, unspecified (Acute) CHF (congestive heart failure) (Chronic) Post-nasal drip (Acute) Nasal congestion (Acute) SCC (squamous cell carcinoma) (Acute) Deviated nasal septum (Acute) Plantar fat pad atrophy (Acute) Tailor's bunion of left foot (Acute) Corns and callosities (Acute) Iron deficiency anemia, unspecified (Acute) Obesity, morbid (more than 100 lbs over ideal weight or BMI > 40) (Acute) Epidermoid cyst of skin (Acute) Chronic kidney disease (Chronic) Migraine without aura (Acute) Oral herpes simplex infection (Acute) Mass of right elbow (Acute) Arthritis/arthropathy of multiple joints (Acute) Hypokalemia (Acute) Headache (Acute) Pes anserinus bursitis of right knee (Acute) Greater trochanteric bursitis of right hip (Acute) DEPO MEDROL: 03/30/2024; 04/22/23 Right leg weakness (Acute) Essential hypertension (Acute) Breast mass, right (Acute) Benign appearance, 2020 Diarrhea (Acute) Former smoker (Acute) Encounter for screening laboratory testing for COVID-19 virus (Acute) Seborrheic keratoses (Acute) back Lipoma (Acute) Numbness and tingling (Acute) Prediabetes (Acute) Chronic anticoagulation (Acute) Former cigarette smoker (Acute) Yearly CT screening - first in 2019 Myalgia (Acute) Arthralgia (Acute) Lumbosacral spondylosis without myelopathy (Acute) Restless leg syndrome (Acute 03/17/15) Polyp of colon (Acute) hyperplastic- colo [id number] Obesity (Acute) Hyperlipidemia (Acute) Heart murmur (Acute) Gastroesophageal reflux disease (Acute) Atrial fibrillation (Chronic) Permanent Anticoagulated on warfarin (Acute) A-fib INR goal 2-3 Medical History (Updated 08/24/24 @ 15:04 by Ellie Lynn NP) Fracture of fourth toe, left, closed (02/11/24) Tinnitus, left ear Diverticulosis Onychomycosis 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 Maternal Grandmother , 96 No problems noted. Mother , age 77 Alcohol abuse Bone cancer Father , age 74 Alcohol abuse Lung cancer Heart disease Hypertension Sister No problems noted. Son No problems noted. 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 Pets and animals: Yes (2 cats) Pets and animals: cat(s) Sexually active: No Do you think of yourself as: straight/heterosexual Current gender identity: female What is your relationship status?: never How often do you talk on the phone with friends or family?: once per week How often do you get together with friends or relatives?: once per week How often do you attend gnosticist or hinduism services?: decline to answer Do you belong to any clubs or organized social groups?: no Panel score (0-1 are the most socially isolated patients): 0 What type of physical activity do you participate in: walking and other Details: walk to work and back Duration: < 15 minutes/day Frequency: 3-4 times per week Aishwarya/Restorationism: None Special aishwarya needs: No Seatbelt use: always Helmet use: No Drive intox or ride w/intox coach tour driver: No Do you feel safe at home: Yes Do you feel safe in your relationship?: Yes POCUS Exam (ED) Limited Cardiac Exam DATE OF EXAM: 08/24/24 TIME OF EXAM: 11:08 PROVIDER THAT PERFORMED THE STUDY: Kaushal Moreno IS THIS A REPEAT EXAM DURING THIS ENCOUNTER: no REASON FOR EXAM: Dyspnea VISUALIZED STRUCTURES: Four Chambers, Left ventricle and LVOT VIEW OBTAINED: Apical 4-Chamber, Parasternal long-axis and Subxiphoid PERTINENT FINDINGS/IMPRESSION: No pericardial effusion and No RV dilation DIFFERENTIAL DIAGNOSES: Aortic outflow track less than 4 cm, good squeeze, no significant pericardial effusion. Unable to tolerate apical four-chamber. Right basilar B-lines. No anterior B-lines. Exam complete
[2024-08-24 10:33] LABS: Abs Immature Grans 0.06 10^3/uL (0.0-0.06); Absolute Basophil Count 0.08 10^3/uL (0.0-0.2); Absolute Eosinophil Count 0.23 10^3/uL (0.0-0.7); Absolute Lymphocyte Count 1.56 10^3/uL (1.2-3.4); Absolute Monocyte Count 0.72 10^3/uL (0.1-0.8); Absolute Neutrophil Count 5.03 10^3/uL (1.2-6.7); HCT 46.2 % (36.0-46.0); Immature Grans % 0.8 %; Lymphocytes % 20.3 %; MCHC 32.5 % (32.0-36.0); MCV 92 fL (80-95); MPV 10.8 fL (8.0-11.0); Monocytes % 9.4 %; Neutrophils % 65.5 %; Platelet Count 227 10^3/uL (130-400); RDW 16.1 % (11.7-14.6); RDW-SD 54.9 fL; WBC 7.68 10^3/uL (4.4-10.8)
[2024-08-24 10:44] LABS: INR 1.1 (0.9-1.1); Prothrombin Time 11.3 sec (9.1-11.1)
[2024-08-24 11:01] LABS: Anion Gap 10.9 mmol/L (3-11); BUN 24 mg/dL (7-18); CO2 32.1 mmol/L (21.0-32.0); CREATININE 1.9 mg/dL (0.55-1.02); Calcium 9.6 mg/dL (8.5-10.1); Chloride 101 mmol/L (98-107); Estimated GFR 28.06 (mL/min/1.73m2); Glucose 141 mg/dL (74-106); Magnesium 1.9 mg/dL (1.8-2.4); NT-proBNP 1003 pg/mL (<300); Potassium 3.6 mmol/L (3.5-5.1); Sodium 144 mmol/L (136-145)
[2024-08-24 11:02] LABS: Troponin I < 4 ng/L (<or=51)
[2024-08-24 11:17] LABS: D-Dimer 354 ng/mlFEU (<500)
[2024-08-24 11:30] LABS: Lab Add On Test DONE
[2024-08-24] MEDS: Furosemide 40 MG/4 ML VIAL IVP ×2 (12:13→16:19)
[2024-08-24] MEDS: Magnesium Oxide 400 MG TAB PO (12:13)
[2024-08-24] MEDS: Potassium Bicarbonate/Cit AC 25 MEQ TABLET.EFF 50 MEQ PO (12:13)
--- NOTE | 2024-08-24 12:51 | W.PM.HP.N ---
Date of service: 08/24/24 Time of Service: 12:51 Assessment and Plan Assessment and plan (1) Acute on chronic heart failure with preserved ejection fraction: Status: Acute Assessment and plan: admit to med/surg obs for further diuresis and monitoring responding to IV lasix 40 mg given in ED monitor I&O closely, daily weights continue lasix 40 mg IVP bid monitoring electrolytes and kidney function closely update echo last echo: Conclusion Mild concentric left ventricular hypertrophy. Ejection fraction is 55%. Wall motion is normal Normal right ventricular size and function Left atrium is moderately dilated. Right atrium is mildly dilated Aortic valve is calcified and trileaflet without stenosis or regurgitation Mitral annular calcification. Moderate mitral regurgitation Normal tricuspid valve with moderate regurgitation. Estimated right ventricular systolic pressure is 46 mmHg (2) Atrial fibrillation: Status: Chronic Assessment and plan: rate controlled to uncontrolled, continue to monitor continue metoprolol xl 25 mg bid and adjust as needed. (3) Hyperlipidemia: Status: Acute Assessment and plan: continue rosuvastatin (4) Discharge planning issues: Status: Acute Assessment and plan: DVT prophylaxis: fully anticoagulated on apixaban discharge planning: anticipate home with no services when medically stable. discussed with Dr Lambert Review of Systems All systems reviewed & are unremarkable except as noted in HPI and below PFSH All Active Problems (Updated 08/24/24 @ 15:04 by Ellie Lynn NP) Discharge planning issues (Acute) Acute on chronic heart failure with preserved ejection fraction (Acute) Acute heart failure with preserved ejection fraction (Acute) Facet arthropathy, lumbar (Acute) Anterolisthesis of lumbosacral spine (Acute) Tricuspid valve insufficiency (Acute) Mitral valve insufficiency (Chronic) Cardiac microvascular disease (Acute) Chronic back pain (Acute) Sinusitis (Acute) Cough (Acute) Sinusitis (Acute) Hoarseness of voice (Acute) Lower extremity neuropathy (Acute) Chronic cough (Acute) Dyspnea, unspecified (Acute) CHF (congestive heart failure) (Chronic) Post-nasal drip (Acute) Nasal congestion (Acute) SCC (squamous cell carcinoma) (Acute) Deviated nasal septum (Acute) Plantar fat pad atrophy (Acute) Tailor's bunion of left foot (Acute) Corns and callosities (Acute) Iron deficiency anemia, unspecified (Acute) Obesity, morbid (more than 100 lbs over ideal weight or BMI > 40) (Acute) Epidermoid cyst of skin (Acute) Chronic kidney disease (Chronic) Migraine without aura (Acute) Oral herpes simplex infection (Acute) Mass of right elbow (Acute) Arthritis/arthropathy of multiple joints (Acute) Hypokalemia (Acute) Headache (Acute) Pes anserinus bursitis of right knee (Acute) Greater trochanteric bursitis of right hip (Acute) DEPO MEDROL: 03/30/2024; 04/22/23 Right leg weakness (Acute) Essential hypertension (Acute) Breast mass, right (Acute) Benign appearance, 2020 Diarrhea (Acute) Former smoker (Acute) Encounter for screening laboratory testing for COVID-19 virus (Acute) Seborrheic keratoses (Acute) back Lipoma (Acute) Numbness and tingling (Acute) Prediabetes (Acute) Chronic anticoagulation (Acute) Former cigarette smoker (Acute) Yearly CT screening - first in 2019 Myalgia (Acute) Arthralgia (Acute) Lumbosacral spondylosis without myelopathy (Acute) Restless leg syndrome (Acute 03/17/15) Polyp of colon (Acute) hyperplastic- colo [id number] Obesity (Acute) Hyperlipidemia (Acute) Heart murmur (Acute) Gastroesophageal reflux disease (Acute) Atrial fibrillation (Chronic) Permanent Anticoagulated on warfarin (Acute) A-fib INR goal 2-3 Medical History (Updated 08/24/24 @ 15:04 by Ellie Lynn NP) Fracture of fourth toe, left, closed (02/11/24) Tinnitus, left ear Diverticulosis Onychomycosis 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 Maternal Grandmother , 96 No problems noted. Mother , age 77 Alcohol abuse Bone cancer Father , age 74 Alcohol abuse Lung cancer Heart disease Hypertension Sister No problems noted. Son No problems noted. 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 Pets and animals: Yes (2 cats) Pets and animals: cat(s) Sexually active: No Do you think of yourself as: straight/heterosexual Current gender identity: female What is your relationship status?: never How often do you talk on the phone with friends or family?: once per week How often do you get together with friends or relatives?: once per week How often do you attend jehovah's witness or gnosticism services?: decline to answer Do you belong to any clubs or organized social groups?: no Panel score (0-1 are the most socially isolated patients): 0 What type of physical activity do you participate in: walking and other Details: walk to work and back Duration: < 15 minutes/day Frequency: 3-4 times per week Aishwarya/Yazdanism: None Special aishwarya needs: No Seatbelt use: always Helmet use: No Drive intox or ride w/intox jukebox route driver: No Do you feel safe at home: Yes Do you feel safe in your relationship?: Yes Meds Allergies and Home Medications Allergies Allergy/AdvReac Type Severity Reaction Status Date / Time Latex, Natural Rubber Allergy Intermediate Itching Verified 08/24/24 10:09 pravastatin AdvReac Intermediate Myalgias Verified 08/24/24 10:09 fentanyl AdvReac Unknown unknown Verified 08/24/24 10:09 Home Medications ?Medication ?Instructions ?Recorded ?Confirmed ?Type acetaminophen 650 mg 1,300 mg PO PRN PRN Pain 08/25/12 08/24/24 History tablet,extended release (Tylenol Arthritis) diphenoxylate-atropine 2.5 1 tab PO BID PRN diarrhea #10 tabs 08/24/21 03/31/25 Rx mg-0.025 mg tablet (Lomotil) valacyclovir 1 gram tablet 2,000 mg (2 x 1 gram) PO Q12H PRN 07/09/22 08/24/24 Rx outbreaks #20 tabs promethazine 25 mg tablet 25 mg PO Q6H PRN migraine headache 08/10/22 08/24/24 Rx #30 tabs metoprolol succinate 25 mg 25 mg PO BID hypertension #180 tabs 07/18/23 08/24/24 Rx tablet,extended release 24 hr magnesium 200 mg tablet 200 mg PO DAILY 10/04/23 08/24/24 History multivitamin (Daily Multi-Vitamin 1 tab PO DAILY 10/04/23 08/24/24 History tablet) rosuvastatin 5 mg tablet 5 mg PO QHS HLP #90 tabs 10/11/23 08/24/24 Rx amlodipine 2.5 mg tablet 2.5 mg PO DAILY 01/23/24 08/24/24 History trazodone 50 mg tablet 50 mg PO QHS PRN sleep #60 tabs 02/27/24 08/24/24 Rx apixaban 5 mg tablet (Eliquis) 5 mg PO BID AFIB #180 tabs 04/03/24 08/24/24 Rx ferrous sulfate 325 mg (65 mg 325 mg PO Q OTHER DAY 04/03/24 08/24/24 History iron) tablet (Iron (ferrous sulfate)) benzonatate 100 mg capsule 100 mg PO BID-TID PRN cough #20 04/15/24 08/24/24 Rx caps potassium chloride 20 mEq 40 meq (2 x 20 mEq) PO TID #90 tabs 06/09/24 08/24/24 Rx tablet,extended release spironolactone 25 mg tablet See Rx Instructions .Route 07/21/24 08/24/24 Rx .COMPLEX #90 tabs furosemide 40 mg tablet 40 mg PO QAM #90 tabs 08/19/24 08/24/24 Rx omeprazole 40 mg capsule,delayed 40 mg PO BID 08/19/24 08/24/24 History release tramadol 50 mg tablet 50 mg PO BID PRN pain #60 tabs 08/21/24 08/24/24 Rx Exam Const General: cooperative and no acute distress Nutritional Appearance: obese Orientation: alert, awake and oriented x3 HENMT Head: normal to inspection, normocephalic and atraumatic Mouth: oral mucosae normal Eyes General: appearance normal, both eyes and all related structures Neck Neck: normal visual inspection and full ROM Resp Effort & Inspection: normal respiratory effort Auscultation: clear to auscultation bilaterally, rales bilaterally at the base and no wheezes Cardio Rate: tachycardic Rhythm: abnormal rhythm (controlled to uncontrolled afib) GI Inspection: normal to inspection Palpation: soft Skin General skin exam: no rashes or lesions noted Neuro General: patient alert, patient awake and patient oriented x3 Extrem General: edema (trace to +1) Laterality: bilateral Results Labs 08/24/24 10:25 08/24/24 10:25 Labs: Laboratory Results - last 24 hr 08/24/24 08/24/24 08/24/24 10: 10:48 11:16 WBC 7.68 RBC 5.00 Hgb 15.0 Hct 46.2 H MCV 92 MCH 30.0 MCHC 32.5 RDW 16.1 H Plt Count 227 MPV 10.8 Immature Gran % 0.8 Neutrophils % 65.5 Lymphocytes % 20.3 Monocytes % 9.4 Eosinophils % 3.0 Basophils % 1.0 Nucleated RBC % 0.0 Absolute Neutrophils 5.03 Absolute Lymphocytes 1.56 Absolute Monocytes 0.72 Absolute Eosinophils 0.23 Absolute Basophils 0.08 PT 11.3 H INR 1.1 D-Dimer 354 Sodium 144 Potassium 3.6 Chloride 101 Carbon Dioxide 32.1 H Anion Gap 10.9 BUN 24 H Creatinine 1.9 H Est GFR (CKD-EPI 2020) 28.06 Glucose 141 H Calcium 9.6 Magnesium 1.9 Troponin I < 4 Cancelled NT-Pro-B Natriuret Pep 1003 H Add-On Test Request DONE 08/24/24 13:16 WBC RBC Hgb Hct MCV MCH MCHC RDW Plt Count MPV Immature Gran % Neutrophils % Lymphocytes % Monocytes % Eosinophils % Basophils % Nucleated RBC % Absolute Neutrophils Absolute Lymphocytes Absolute Monocytes Absolute Eosinophils Absolute Basophils PT INR D-Dimer Sodium Potassium Chloride Carbon Dioxide Anion Gap BUN Creatinine Est GFR (CKD-EPI 2020) Glucose Calcium Magnesium Troponin I Cancelled NT-Pro-B Natriuret Pep Add-On Test Request Last Vital Signs Temp 36.5 C 08/24/24 10:07 Pulse 112 H 08/24/24 11:55 Resp 22 08/24/24 11:55 BP 130/78 08/24/24 11:55 Pulse Ox 90 L 08/24/24 11:55 Time Spent Time spent with Patient: 55-74 minutes Time was spent: preparing to see the patient(eg.review tests), obtaining and/or reviewing separately otained hiistory, ordering medications,tests, procedures, indepentently interpreting results and counseling the patient
--- NOTE | 2024-08-24 13:48 | W.PC.ACHO ---
Registration Status: Primary Language: Preferred Language: ED Information & Data Chief Complaint SOB 08/24/24 10:16 Triage Note h/o CHF, gained 15lbs this 08/24/24 10:07 month and new swelling in legs/feet worse at night. Increased her lasix dose which has not helped. SOB worse with exertion Medical / Surgical History (Last Updated 02/14/24 @ 15:03 by Shahida Luz RN) Fracture of fourth toe, left, closed (02/11/24) Tinnitus, left ear Diverticulosis Onychomycosis Poole's neuroma of left foot (07/19/15) Lichenification Cholelithiasis without obstruction (Last Reviewed 09/06/23 @ 09:37 by Uri Maradiaga DO) History of total right knee replacement (TKR) S/P colonoscopy (~12/15/18) section Open Carpal Tunnel release Abdominal hysterectomy Cholecystectomy (~2009) Arthroplasty of knee (~2009) Most Recent Vital Signs Temperature 36.5 C 08/24/24 10:07 Temperature Source Oral 08/24/24 10:07 Pulse 112 H 08/24/24 11:55 Respiratory Rate 22 08/24/24 11:55 Blood Pressure 130/78 08/24/24 11:55 Blood Pressure Position Sitting 08/24/24 10:07 Pulse Oximetry 90 L 08/24/24 11:55 Oxygen Delivery Method Room Air 08/24/24 11:55 Oxygen Flow Rate 0 08/24/24 11:55 Pain Level 0 08/24/24 10:07 Allergies Latex, Natural Rubber Allergy (Intermediate, Verified 08/24/24 10:09) Itching pravastatin Adverse Reaction (Intermediate, Verified 08/24/24 10:09) Myalgias fentanyl Adverse Reaction (Unknown, Verified 08/24/24 10:09) unknown IV IV Catheter Type [Left Forearm Peripheral IV ] IV Catheter Gauge [Left 20 Forearm] Diagnostics 08/24/24 08/24/24 08/24/24 Range/Units 13:16 11:16 10:48 WBC (4.4-10.8) 10^3/uL RBC (3.93-5.22) 10^6/uL Hgb (11.2-15.7) g/dL Hct (36.0-46.0) % MCV (80-95) fL MCH (27.0-33.0) pg MCHC (32.0-36.0) % RDW (11.7-14.6) % Plt Count (130-400) 10^3/uL MPV (8.0-11.0) fL Immature Gran % % Neutrophils % % Lymphocytes % % Monocytes % % Eosinophils % % Basophils % % Nucleated RBC % (0.0-0.3) % Absolute Neutrophils (1.2-6.7) 10^3/uL Absolute Lymphocytes (1.2-3.4) 10^3/uL Absolute Monocytes (0.1-0.8) 10^3/uL Absolute Eosinophils (0.0-0.7) 10^3/uL Absolute Basophils (0.0-0.2) 10^3/uL PT (9.1-11.1) sec INR (0.9-1.1) D-Dimer (<500) ng/mlFEU Sodium (136-145) mmol/L Potassium (3.5-5.1) mmol/L Chloride (98-107) mmol/L Carbon Dioxide (21.0-32.0) mmol/L Anion Gap (3-11) mmol/L BUN (7-18) mg/dL Creatinine (0.55-1.02) mg/dL Est GFR (CKD-EPI 2020) (mL/min/1.73m2) Glucose (74-106) mg/dL Calcium (8.5-10.1) mg/dL Magnesium (1.8-2.4) mg/dL Troponin I Cancelled Cancelled (<or=51) ng/L NT-Pro-B Natriuret Pep (<300) pg/mL Add-On Test Request DONE 08/24/24 Range/Units 10:25 WBC 7.68 (4.4-10.8) 10^3/uL RBC 5.00 (3.93-5.22) 10^6/uL Hgb 15.0 (11.2-15.7) g/dL Hct 46.2 H (36.0-46.0) % MCV 92 (80-95) fL MCH 30.0 (27.0-33.0) pg MCHC 32.5 (32.0-36.0) % RDW 16.1 H (11.7-14.6) % Plt Count 227 (130-400) 10^3/uL MPV 10.8 (8.0-11.0) fL Immature Gran % 0.8 % Neutrophils % 65.5 % Lymphocytes % 20.3 % Monocytes % 9.4 % Eosinophils % 3.0 % Basophils % 1.0 % Nucleated RBC % 0.0 (0.0-0.3) % Absolute Neutrophils 5.03 (1.2-6.7) 10^3/uL Absolute Lymphocytes 1.56 (1.2-3.4) 10^3/uL Absolute Monocytes 0.72 (0.1-0.8) 10^3/uL Absolute Eosinophils 0.23 (0.0-0.7) 10^3/uL Absolute Basophils 0.08 (0.0-0.2) 10^3/uL PT 11.3 H (9.1-11.1) sec INR 1.1 (0.9-1.1) D-Dimer 354 (<500) ng/mlFEU Sodium 144 (136-145) mmol/L Potassium 3.6 (3.5-5.1) mmol/L Chloride 101 (98-107) mmol/L Carbon Dioxide 32.1 H (21.0-32.0) mmol/L Anion Gap 10.9 (3-11) mmol/L BUN 24 H (7-18) mg/dL Creatinine 1.9 H (0.55-1.02) mg/dL Est GFR (CKD-EPI 2020) 28.06 (mL/min/1.73m2) Glucose 141 H (74-106) mg/dL Calcium 9.6 (8.5-10.1) mg/dL Magnesium 1.9 (1.8-2.4) mg/dL Troponin I < 4 (<or=51) ng/L NT-Pro-B Natriuret Pep 1003 H (<300) pg/mL Add-On Test Request Intake and Output - 24 Hour Total 08/24/24 09:58 thru 08/24/24 13:23 Output Total 350 Balance -350 Weight 113.398 kg Output: Urine 350 Problems (Last Updated 02/14/24 @ 15:03 by Shahida Luz RN) Acute on chronic heart failure with preserved ejection fraction (Acute) Acute heart failure with preserved ejection fraction (Acute) Hyperlipidemia (Acute) Atrial fibrillation (Chronic) Anticoagulated on warfarin (Acute) v v v v v v v v v Sending and/or Receiving Nurses: Please use comment section below to note any information pertinent to the patient hand-off not included above. Information / Comments: Report received from: Hand off received from Saira Albarran RN ED, all questions answered.
[2024-08-24] MEDS: Normal Saline Flush 10 ML SYR IVP ×2 (16:19→20:05)
[2024-08-24] MEDS: Potassium Chloride 20 MEQ TABCR 40 MEQ PO (16:19)
[2024-08-24] MEDS: Apixaban 5 MG TAB PO (20:03)
[2024-08-24] MEDS: Metoprolol CR 25 MG TABCR PO (20:03)
[2024-08-24] MEDS: Omeprazole 20 MG CAPCR 40 MG PO (20:04)
[2024-08-24] MEDS: Rosuvastatin 5 MG TAB PO (20:04)
[2024-08-25 02:15] VITALS: O2SAT 93
[2024-08-25 06:45] LABS: Abs Immature Grans 0.07 10^3/uL (0.0-0.06); Absolute Basophil Count 0.06 10^3/uL (0.0-0.2); Absolute Eosinophil Count 0.23 10^3/uL (0.0-0.7); Absolute Lymphocyte Count 1.51 10^3/uL (1.2-3.4); Absolute Monocyte Count 0.74 10^3/uL (0.1-0.8); Basophils % 0.8 %; Eosinophils % 3.2 %; HCT 43.9 % (36.0-46.0); HGB 14.2 g/dL (11.2-15.7); Lymphocytes % 20.9 %; MCH 29.8 pg (27.0-33.0); MCHC 32.3 % (32.0-36.0); MCV 92 fL (80-95); MPV 11.7 fL (8.0-11.0); Monocytes % 10.3 %; Neutrophils % 63.8 %; Platelet Count 198 10^3/uL (130-400); RBC 4.76 10^6/uL (3.93-5.22); RDW 16.1 % (11.7-14.6); RDW-SD 55.4 fL; WBC 7.21 10^3/uL (4.4-10.8)
[2024-08-25 06:58] LABS: Anion Gap 6.9 mmol/L (3-11); BUN 31 mg/dL (7-18); CO2 35.1 mmol/L (21.0-32.0); CREATININE 1.9 mg/dL (0.55-1.02); Calcium 9.9 mg/dL (8.5-10.1); Chloride 100 mmol/L (98-107); Estimated GFR 28.06 (mL/min/1.73m2); Glucose 124 mg/dL (74-106); Potassium 3.6 mmol/L (3.5-5.1); Sodium 142 mmol/L (136-145)
[2024-08-25 07:13] VITALS: BP 113/86; PULSE 89; RESP 20; TEMP 36.4; O2SAT 95
[2024-08-25 07:32] VITALS: BP 128/107; PULSE 87; RESP 19; TEMP 36.6; O2SAT 96
[2024-08-25] MEDS: Omeprazole 20 MG CAPCR 40 MG PO (07:57)
[2024-08-25] MEDS: Ferrous Sulfate 325 MG TAB PO (09:11)
[2024-08-25] MEDS: Multivitamin TAB 1 TAB PO (09:11)
[2024-08-25] MEDS: Metoprolol CR 25 MG TABCR PO (09:11)
[2024-08-25] MEDS: Apixaban 5 MG TAB PO (09:11)
[2024-08-25] MEDS: Spironolactone 25 MG TAB PO (09:12)
[2024-08-25] MEDS: Potassium Chloride 20 MEQ TABCR 40 MEQ PO ×2 (09:12→11:20)
[2024-08-25] MEDS: Furosemide 40 MG/4 ML VIAL IVP (09:21)
--- NOTE | 2024-08-25 09:30 | DI.US_ITS ---
APPROVED REPORT EXAM: Comprehensive 2D, Doppler, and color-flow Echocardiogram Patient Location: In-Patient Room/Bed: 225 Poultry Breeder: Phoenix Clark RDCS (AE) Indications: CHF Other Information Technically limited study due to body habitus. Conclusion Normal left ventricular wall thickness and chamber size. Ejection fraction is 55%. There are no seg mental wall motion abnormalities Normal right ventricular size and function Both atria are moderately enlarged Aortic valve is sclerotic. There is no aortic stenosis or regurgitation Mitral annular calcification. Mild mitral regurgitation Mild tricuspid regurgitation. Estimated right ventricular systolic pressure is 35 mmHg Wall motion Left Ventricle The left ventricle is normal size. Left ventricular systolic function is borderline. There is normal left ventricular wall thickness. No segmental wall motion abnormalities There is no ventricular septa l defect visualized. LVEF is 55%. Right Ventricle The right ventricle is normal size. The right ventricular systolic function is normal. Atria Left atrium is moderately dilated. Right atrium is moderately dilated. The interatrial septum is inta ct with no evidence for an atrial septal defect. Aortic Valve The Aortic valve is sclerotic. Aortic valve is probably trileaflet. There is no aortic valvular steno sis. No aortic regurgitation is present. Mitral Valve Mitral annular calcification. No evidence of mitral valve stenosis. Mild mitral regurgitation. Tricuspid Valve The tricuspid valve is normal in structure. There is no tricuspid valve stenosis. Mild tricuspid regu rgitation. The RVSP is 35.0mmHg. Pulmonic Valve The pulmonary valve is normal in structure. There is no pulmonic valvular stenosis. There is no pulmo mel valvular regurgitation. Great Vessels The aortic root is normal in size. The ascending aorta is normal in size. Aortic arch is normal in ca liber. IVC is normal in size and collapses >50% with inspiration. Pericardium There is no pericardial effusion. 2D Dimensions IVSD d PLAX 0.61 cm F: 0.6-1.0 Ao Root d 2.38 cm F: 2.7 - 3.3 LVPW d PLAX 0.59 cm F: 0.6 - 1.0 Ao Asc Diam d 3.10 cm F: 2.3 - 3.1 LVID d PLAX 4.68 cm F: 3.8 - 5.2 LVDs 3.33 cm F: 2.2 - 3.5 LV EF Teichholz 55.3 % FS 28.73 % LV EDV (Teich) 101.3 mL LV ESV (Teich) 45.3 mL Stroke Vol Index (Teich) 26.68 M-Mode TAPSE 1.04 cm (M/F) >1.7 Auto EF LV EDV A4C 73.9 mL LV EDV A2C 88.3 mL LV EDV BP 82.1 mL LV ESV A4C 36.0 mL LV ESV A2C 41.8 mL LV ESV BP 39.1 mL LVEF(%) A4C 51.2 % LVEF(%) A2C 52.6 % LVEF(%) BP 52.3 % LV SV A4C 37.9 ml LV SV A2C 46.4 ml LV SV BP 43.0 ml LV CO A4C 4.1 L/min LV CO A2C 4.3 L/min LV CO BP 4.2 L/min HR A4C 108.77 BPM HR A2C 92.31 BPM LV EDV Index (BP) LA Volume LA Length A4C 6.4 cm LA Length A2C 6.6 cm LA Area A4C s 20.59 cm2 LA Area A2C s 20.10 cm2 LA Vol A4C A-L 56.30 mL LA Vol A2C A-L 51.64 mL LA Vol Biplane A-L 55.0 mL LA Vol/BSA A4C A-L LA Vol/BSA A2C A-L LA Vol/BSA BP A-L 26.2 mL/m2 LA Vol A4C MOD 52.3 mL LA Vol A2C MOD 49.7 mL LA Vol BP MOD 51.2 mL RA Volume RA Area A4C 16.9 cm2 RA ESV A4C (A-L) 37.3mL RA Vol/BSA A4C A-L RA Length A4C 6.5 cm RA ESV A4C (MOD) 36.4mL LV Diastology MV E' medial 0.101 (>0.07 m/s) MV E Vmax 0.95 (0.4-1.3 m/s) MV E/E' MED 9.38 (<14) MV E' lateral 0.125 (>0.1 m/s) MV E/E' LAT 7.57 (<14) MV E' Average 0.113 m/s MV E/E'(average) 8.38 Aortic Valve AoV Vmax 1.75 m/s LVOT Vmax 1.03 m/s AoV Peak Grad 12.2 mmHg LVOT Peak Grad 4.2 mmHg AoV Area (Vmax) 1.41 cm2 LVOT VTI 0.197 m AoV VTI 0.334 m LVOT Mean Grad 2.2 mmHg AoV Mean Eugenio. 1.23 m/s LVOT SV 47.07 mL AoV Mean Grad 7.0 mmHg LVOT Diam s 1.70 cm AoV Area (VTI) 1.41 cm2 AV Regurg Peak Gr. 12.22 mmHg Velocity Ratio 0.59 Mitral Valve MV DT 244 (160-240 msec) Tricuspid Valve RA Pressure 3.00 mmHg TR Vmax 2.83 m/s TV S' 0.12 m/s TR Peak Grad 31.9 mmHg RVSP (TR) 35.0 mmHg
--- NOTE | 2024-08-25 09:41 | INITIAL_ITS ---
Date of service: 08/25/24 Time of Service: 09:41 Care Management Initial Assmt Initial Assessment Reason for Hospitalization: Acute heart failure with preserved ejection fracture Functional Status/Living Situation Patient Presentation: Sanaz presented to the ED yesterday morning with c/o unintentional weight gain and leg swelling concerning for worsening of her heart failure versus ACS. She reported that she has gained 20# in one month. She also c/o increasing SOB and 3 pillow orthopnea. She stated she felt like her sx were similar to prior exacerbations of her heart failure. She was admitted to observation for diuresis, echocardiogram, and close following of her kidney function. Sanaz was sitting up in the bedside chair when CM met with her this morning. She was very pleasant, and stated that she is feeling much better and is hoping to go home, pending the results of her echocardiogram. Sanaz asked about advanced directives. CM provided the document and assisted Sanaz to fill out her AD. The AD was witnessed, scanned into her chart and faxed successfully to the Registry. Sanaz was given the original, and 4 copies of the document. Town of Residence: [place] Resides with: Child (Man) Significant Other/Family: Local (sisters Marley and Lamont, son Man) Natural Supports: family Employment Status: Retired Instrumental Activities of Daily Living (ADLs): Independent Medications Medication Management: No Issues/Barriers identified Advance Directives Advance Directives: Do you have an Advance Directive: Y 12/14/19 15:43 AD On File at [facility]: Y 12/14/19 15:43 Date Asked 03/29/24 03/29/24 11:19 AD Date Reviewed 08/08/24 08/08/24 18:19 COLST On File at [facility] No 09/24/20 12:04 COLST Date Scanned Code Status Resuscitation Status Full Code Portal Pt does not currently have a portal and education provided: Yes Insurance Coverage/Financial Issues Insurance: [employer] Medicare Replacement FINANCIAL ASST 100? Care Team Visit Care Team Role Provider Type Ellie Lynn NP NURSE PRACTITIONER Adelita Leavitt APRN Primary Care Provider NURSE PRACTITIONER Kaushal Moreno MD Emergency Provider [facility] STAFF PHYSICIAN Kamran Lambert MD Admit Provider [facility] STAFF PHYSICIAN Attending Provider Other: has outpatient [employer] reverse winder Discharge Potential Discharge Needs: PCP F/U Appt and Other (cardiology f/u) Anticipated Barriers to Discharge: None Identified Patient/Family Education Needs: Review discharge instructions, discuss Ask Me Three Transportation: Private vehicle Plan: Anticipate that Sanaz will be discharged home this afternoon with no new services. 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 She will transport via private vehcile. CM will continue to follow and to update the plan as needed. Social Determinants of Health Screening Social Determinants of Health last assessed: 08/25/24 Will the Patient Participate in the Screening?: Yes Do you worry about having a steady place to live?: no Problems where you live: no known problems In the past 12 months, have you had to go without electric, gas, oil or water in your home?: no Have you or anyone in your house had to go without enough food to eat?: no Has lack of transportation kept you from medical appointments or from doing things needed for daily living?: no Has anyone in your life made you feel unsafe or unsupported?: no How hard is it for you to pay for the very basics like food, housing, medical care, and heating? Would you say it is:: Not hard at all Do you want help finding or keeping work or a job?: I do not need or want help If for any reason you need help with day-to-day activities such as bathing, preparing meals, shopping, managing finances, etc., do you get the help you need?: I don?t need any help How often do you feel lonely or isolated from those around you?: Sometimes Do you speak a language other than Citizen [place] at home?: No Does the patient want assistance with any of the above?: No Health Related Social Needs Health related social needs: feeling lonely/isolated (Z60.8) [facility] All Active Problems (Updated 08/24/24 @ 15:04 by Ellie Lynn NP) Discharge planning issues (Acute) Acute on chronic heart failure with preserved ejection fraction (Acute) Acute heart failure with preserved ejection fraction (Acute) Facet arthropathy, lumbar (Acute) Anterolisthesis of lumbosacral spine (Acute) Tricuspid valve insufficiency (Acute) Mitral valve insufficiency (Chronic) Cardiac microvascular disease (Acute) Chronic back pain (Acute) Sinusitis (Acute) Cough (Acute) Sinusitis (Acute) Hoarseness of voice (Acute) Lower extremity neuropathy (Acute) Chronic cough (Acute) Dyspnea, unspecified (Acute) CHF (congestive heart failure) (Chronic) Post-nasal drip (Acute) Nasal congestion (Acute) SCC (squamous cell carcinoma) (Acute) Deviated nasal septum (Acute) Plantar fat pad atrophy (Acute) Tailor's bunion of left foot (Acute) Corns and callosities (Acute) Iron deficiency anemia, unspecified (Acute) Obesity, morbid (more than 100 lbs over ideal weight or BMI > 40) (Acute) Epidermoid cyst of skin (Acute) Chronic kidney disease (Chronic) Migraine without aura (Acute) Oral herpes simplex infection (Acute) Mass of right elbow (Acute) Arthritis/arthropathy of multiple joints (Acute) Hypokalemia (Acute) Headache (Acute) Pes anserinus bursitis of right knee (Acute) Greater trochanteric bursitis of right hip (Acute) DEPO MEDROL: 03/30/2024; 04/22/23 Right leg weakness (Acute) Essential hypertension (Acute) Breast mass, right (Acute) Benign appearance, 2020 Diarrhea (Acute) Former smoker (Acute) Encounter for screening laboratory testing for COVID-19 virus (Acute) Seborrheic keratoses (Acute) back Lipoma (Acute) Numbness and tingling (Acute) Prediabetes (Acute) Chronic anticoagulation (Acute) Former cigarette smoker (Acute) Yearly CT screening - first in 2019 Myalgia (Acute) Arthralgia (Acute) Lumbosacral spondylosis without myelopathy (Acute) Restless leg syndrome (Acute 03/17/15) Polyp of colon (Acute) hyperplastic- colo [id number] Obesity (Acute) Hyperlipidemia (Acute) Heart murmur (Acute) Gastroesophageal reflux disease (Acute) Atrial fibrillation (Chronic) Permanent Anticoagulated on warfarin (Acute) A-fib INR goal 2-3 Medical History (Updated 08/24/24 @ 15:04 by Ellie Lynn NP) Fracture of fourth toe, left, closed (02/11/24) Tinnitus, left ear Diverticulosis Onychomycosis 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 Maternal Grandmother , 96 No problems noted. Mother , age 77 Alcohol abuse Bone cancer Father , age 74 Alcohol abuse Lung cancer Heart disease Hypertension Sister No problems noted. Son No problems noted. 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 Pets and animals: Yes (2 cats) Pets and animals: cat(s) Sexually active: No Do you think of yourself as: straight/heterosexual Current gender identity: female What is your relationship status?: never How often do you talk on the phone with friends or family?: once per week How often do you get together with friends or relatives?: once per week How often do you attend adventist or congregation services?: decline to answer Do you belong to any clubs or organized social groups?: no Panel score (0-1 are the most socially isolated patients): 0 What type of physical activity do you participate in: walking and other Details: walk to work and back Duration: < 15 minutes/day Frequency: 3-4 times per week Aishwarya/Adventist: None Special aishwarya needs: No Seatbelt use: always Helmet use: No Drive intox or ride w/intox driver examiner: No Do you feel safe at home: Yes Do you feel safe in your relationship?: Yes Readmission Within the Past 30 Days Yes or No: No
--- NOTE | 2024-08-25 11:58 | W.PM.DS.N ---
Date of service: 08/25/24 Time of Service: 12:00 DS: Diagnosis Discharge Diagnosis (1) Acute on chronic heart failure with preserved ejection fraction: Status: Acute (2) Atrial fibrillation: Status: Chronic (3) Hyperlipidemia: Status: Acute (4) Discharge planning issues: Status: Acute Discharge Plan Disposition Patient Disposition: Home W/Home Health Services Condition: Improving Discharge Details Reason For Visit: decompsated heart failure Admit Date/Time: 08/24/24 12:49 Admit Provider: Kamran Lambert Attending Provider: Kamran Lambert Primary Care Provider: Adelita Leavitt Hospital Course Hospital Course: 69-year-old female patient past medical history significant for HFpEF presents to the emergency department with complaints of increased shortness of breath, weight gain, peripheral edema similar to previous episodes of decompensated heart failure. She received IV Lasix in the emergency department and hospitalist services was asked to observe her overnight for further diuresis and management. She had no oxygen requirements. Heart rate was in the high 90s to low 100s. She responded well to the diuresis hemodynamically remained stable overnight heart rate improved blood pressure remained stable. In the morning she was feeling closer to her baseline and feeling ready for discharge to home. She continued to require no oxygen was safely reambulated. She was eating and drinking bowels and bladder functioning. She is stable for discharge to home and will follow-up outpatient with her primary care team or return sooner for new or worsening symptoms. discharge discussed with DR Lambert Home Meds and New Rx's Prescriptions: Continued valacyclovir 1 gram tablet 2,000 mg PO Q12H PRN (Reason: outbreaks) Qty: 20 6RF Rx Instructions: Take for one day for each outbreak amlodipine 2.5 mg tablet 2.5 mg PO DAILY ferrous sulfate [Iron (ferrous sulfate)] 325 mg (65 mg iron) tablet 325 mg PO Q OTHER DAY Eliquis 5 mg tablet 5 mg PO BID MDD 10MG Qty: 180 3RF Rx Instructions: USE PRESCRIPTION ADVANTAGE PLAN, PT OF DR KENNY, PLEASE MAIL TO PT. SHE WILL BE OUT IN ONE WEEK. THANK YOU diphenoxylate-atropine [Lomotil] 2.5-0.025 mg tablet 1 tab PO BID PRN (Reason: diarrhea) Qty: 10 0RF promethazine 25 mg tablet 25 mg PO Q6H PRN (Reason: migraine headache) Qty: 30 0RF trazodone 50 mg tablet 50 mg PO QHS PRN (Reason: sleep) Qty: 60 0RF benzonatate 100 mg capsule 100 mg PO BID-TID PRN (Reason: cough) Qty: 20 0RF omeprazole 40 mg capsule,delayed release(DR/EC) 40 mg PO BID furosemide 40 mg tablet 40 mg PO QAM Qty: 90 3RF metoprolol succinate 25 mg tablet extended release 24 hr 25 mg PO BID Qty: 180 3RF rosuvastatin 5 mg tablet 5 mg PO QHS Qty: 90 3RF potassium chloride 20 mEq tablet extended release 40 meq PO TID Qty: 90 3RF spironolactone 25 mg tablet See Rx Instructions .ROUTE .COMPLEX Qty: 90 0RF Dose Instruction: TAKE 1 TABLET BY MOUTH DAILY Rx Instructions: TAKE 1 TABLET BY MOUTH DAILY tramadol 50 mg tablet 50 mg PO BID PRN (Reason: pain) Qty: 60 1RF acetaminophen [Tylenol Arthritis] 650 MG tablet extended release 1,300 mg PO PRN PRN (Reason: Pain) Patient Comments: 01/25/17 Takes 3 500mg every morning and every night. LR multivitamin [Daily Multi-Vitamin] Tablet 1 tab PO DAILY Discharge Instructions Instructions: Heart failure and atrial fibrillation Stand Alone Forms: Nursing Discharge Form Referrals: Adelita Leavitt APRN [Primary Care Provider] - 09/16/24 10:00 am Activity:: Activity as Tolerated Equipment/Supplies:: No Equipment Needed Diet:: Low Sodium Discharge Orders Discharge Orders: Discharge Order (Routine); Ordered 08/25/24 Ordered By: Ellie Lynn Discharge Data Discharge Date/Time-TO BE ENTERED AT DEPARTURE: 08/25/24 13:29 DS: Summary Time Spent with Patient providing and/or coordinating discharge services: Less than 30 minutes Status at Discharge Functional status at discharge: independent ambulation Overall status at discharge: patient is progressing back to baseline Mental Status: mental status grossly normal Speech and Movement: speech and movement normal Mood: congruent mood Affect: normal affect Quality:SDOH Health Related Social Needs: Health related social needs feeling lonely/isolated (Z60.8) Exam Narrative Exam Narrative: Obese female of stated age no acute distress head is atraumatic eyes nonicteric noninjected neck full range of motion no JVD cardiovascular regular rate irregular rhythm she is controlled atrial fibrillation. Breath sounds clear throughout no wheezing no rhonchi or rales abdomen nontender moves all extremities neurologic she is awake alert oriented no focal deficits psychiatric appropriate mood and affect Psych Mental Status: mental status grossly normal Speech and Movement: speech and movement normal Mood: congruent mood Affect: normal affect DS: Data Vitals/I&O Vitals and I&O: Vital Signs Temperature 36.6 C 08/25/24 07:32 Temperature Source Temporal Artery Scan 08/25/24 07:32 Pulse 87 08/25/24 07:32 Pulse Rhythm Irregular 08/24/24 14:38 Respiratory Rate 19 08/25/24 07:32 Respiratory Effort Normal, Non-Labored 08/24/24 14:38 Respiratory Depth Normal 08/24/24 14:38 Respiratory Pattern Normal 08/24/24 14:38 Blood Pressure 128/107 H 08/25/24 07:32 Blood Pressure Position Sitting 08/24/24 10:07 Pulse Oximetry 96 08/25/24 07:32 Oxygen Delivery Method Room Air 08/25/24 07:32 Oxygen Flow Rate 0 08/25/24 07:32 Pain Level 0 08/25/24 07:32 Intake & Output 08/24/24 08/24/24 08/25/24 11:59 23:59 11:59 Intake Total 10 / 10 400 / 400 Output Total 1400 / 1400 1450 / 1450 Balance -1390 / -1390 -1050 / -1050 Weight 113.398 kg 112.2 kg 112.3 kg Intake: IV 10 / Oral 400 / 400 Output: Urine 1400 / 1400 1450 / 1450 Other: Urine Color Yellow Yellow Urine Appearance Clear Clear Urine Odor Normal Normal Data Completed and Pending Labs on day of discharge: Labs from last 24 hours 08/25/24 05:32 WBC 7.21 RBC 4.76 Hgb 14.2 Hct 43.9 MCV 92 MCH 29.8 MCHC 32.3 RDW 16.1 H Plt Count 198 MPV 11.7 H Immature Gran % 1.0 Neutrophils % 63.8 Lymphocytes % 20.9 Monocytes % 10.3 Eosinophils % 3.2 Basophils % 0.8 Nucleated RBC % 0.0 Absolute Neutrophils 4.60 Absolute Lymphocytes 1.51 Absolute Monocytes 0.74 Absolute Eosinophils 0.23 Absolute Basophils 0.06 Sodium 142 Potassium 3.6 Chloride 100 Carbon Dioxide 35.1 H Anion Gap 6.9 BUN 31 H Creatinine 1.9 H Est GFR (CKD-EPI 2020) 28.06 Glucose 124 H Calcium 9.9 PFSH All Active Problems (Updated 08/24/24 @ 15:04 by Ellie Lynn NP) Discharge planning issues (Acute) Acute on chronic heart failure with preserved ejection fraction (Acute) Acute heart failure with preserved ejection fraction (Acute) Facet arthropathy, lumbar (Acute) Anterolisthesis of lumbosacral spine (Acute) Tricuspid valve insufficiency (Acute) Mitral valve insufficiency (Chronic) Cardiac microvascular disease (Acute) Chronic back pain (Acute) Sinusitis (Acute) Cough (Acute) Sinusitis (Acute) Hoarseness of voice (Acute) Lower extremity neuropathy (Acute) Chronic cough (Acute) Dyspnea, unspecified (Acute) CHF (congestive heart failure) (Chronic) Post-nasal drip (Acute) Nasal congestion (Acute) SCC (squamous cell carcinoma) (Acute) Deviated nasal septum (Acute) Plantar fat pad atrophy (Acute) Tailor's bunion of left foot (Acute) Corns and callosities (Acute) Iron deficiency anemia, unspecified (Acute) Obesity, morbid (more than 100 lbs over ideal weight or BMI > 40) (Acute) Epidermoid cyst of skin (Acute) Chronic kidney disease (Chronic) Migraine without aura (Acute) Oral herpes simplex infection (Acute) Mass of right elbow (Acute) Arthritis/arthropathy of multiple joints (Acute) Hypokalemia (Acute) Headache (Acute) Pes anserinus bursitis of right knee (Acute) Greater trochanteric bursitis of right hip (Acute) DEPO MEDROL: 03/30/2024; 04/22/23 Right leg weakness (Acute) Essential hypertension (Acute) Breast mass, right (Acute) Benign appearance, 2020 Diarrhea (Acute) Former smoker (Acute) Encounter for screening laboratory testing for COVID-19 virus (Acute) Seborrheic keratoses (Acute) back Lipoma (Acute) Numbness and tingling (Acute) Prediabetes (Acute) Chronic anticoagulation (Acute) Former cigarette smoker (Acute) Yearly CT screening - first in 2019 Myalgia (Acute) Arthralgia (Acute) Lumbosacral spondylosis without myelopathy (Acute) Restless leg syndrome (Acute 03/17/15) Polyp of colon (Acute) hyperplastic- colo [id number] Obesity (Acute) Hyperlipidemia (Acute) Heart murmur (Acute) Gastroesophageal reflux disease (Acute) Atrial fibrillation (Chronic) Permanent Anticoagulated on warfarin (Acute) A-fib INR goal 2-3 Medical History (Updated 08/24/24 @ 15:04 by Ellie Lynn NP) Fracture of fourth toe, left, closed (02/11/24) Tinnitus, left ear Diverticulosis Onychomycosis 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 Maternal Grandmother , 96 No problems noted. Mother , age 77 Alcohol abuse Bone cancer Father , age 74 Alcohol abuse Lung cancer Heart disease Hypertension Sister No problems noted. Son No problems noted. 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 Pets and animals: Yes (2 cats) Pets and animals: cat(s) Sexually active: No Do you think of yourself as: straight/heterosexual Current gender identity: female What is your relationship status?: never How often do you talk on the phone with friends or family?: once per week How often do you get together with friends or relatives?: once per week How often do you attend restoration or jainism services?: decline to answer Do you belong to any clubs or organized social groups?: no Panel score (0-1 are the most socially isolated patients): 0 What type of physical activity do you participate in: walking and other Details: walk to work and back Duration: < 15 minutes/day Frequency: 3-4 times per week Aishwarya/Sikh: None Special aishwarya needs: No Seatbelt use: always Helmet use: No Drive intox or ride w/intox dump truck driver: No Do you feel safe at home: Yes Do you feel safe in your relationship?: Yes Time Spent with Patient Time Spent with Patient: <45 minutes Time was spent: preparing to see the patient(eg.review tests), obtaining and/or reviewing separately otained hiistory, indepentently interpreting results and counseling the patient
--- NOTE | 2024-08-25 13:30 | PDOC.CMDIS ---
Date of service: 08/25/24 Time of Service: 13:30 LACE Index Scoring Tool Questions: Length of Stay (in days): 1 Was the patient admitted via the E.D.?: Yes Comorbidities: Congestive Heart Failure and Mild Liver/Renal Disease E.D. Visits: 1 Answers: Total Score: 10 Risk of Readmission: High Risk Care Management Discharge Plan Reason for Hospitalization: heart failure, acute on chronic Discharge Plan: Sanaz was discharged home this afternoon with no new services. She will f/u with her PCP on 09/16/24 and likely with her psychiatric technician assistant. Sanaz was transported home by her son. Patient/Family Education Needs: Review of discharge instructions, activity, plan of care and discuss ask me 3. SDOH Health Related Social Needs: Health related social needs feeling lonely/isolated (Z60.8)
== END 2024-08-25 13:29 | disposition home health service (06) ==
LOC: ER 12:46 → MS 14:09
PROVIDERS: Admitting Provider Family Medicine; Emergency Provider Emergency Medicine; PCP Nurse Practitioner Family; Responsible Provider Nurse Practitioner Acute Care; Visit Provider Family Medicine
DX: I50.33 Acute on chronic diastolic (congestive) heart failure (principal); I48.21 Permanent atrial fibrillation; E78.5 Hyperlipidemia, unspecified; I13.0 Hypertensive heart and chronic kidney disease with heart failure and stage 1 through stage 4 chronic kidney disease, or unspecified chronic kidney disease; E66.01 Morbid (severe) obesity due to excess calories; Z68.42 Body mass index [BMI] 45.0-49.9, adult; I08.1 Rheumatic disorders of both mitral and tricuspid valves; G89.29 Other chronic pain; N18.9 Chronic kidney disease, unspecified; G62.9 Polyneuropathy, unspecified; D50.9 Iron deficiency anemia, unspecified; G43.009 Migraine without aura, not intractable, without status migrainosus; R73.03 Prediabetes; E87.6 Hypokalemia; Z79.01 Long term (current) use of anticoagulants; Z87.891 Personal history of nicotine dependence; G25.81 Restless legs syndrome; K21.9 Gastro-esophageal reflux disease without esophagitis; Z96.653 Presence of artificial knee joint, bilateral
CPT/HCPCS: 00123; 36415; 80048; 93005; 93306; 93308; 96374; 96376; 99285; 71046; 83735; 83880; 84484; 85025; 85379; 85610; 93010; 99223; 99239; G0378; J1940; J1941; J3490

== ENCOUNTER 2024-11-19 10:07 | Outpatient (CLI) | payer MEDICARE, SELFPAY ==
[2024-11-19 11:22] LABS: Anion Gap 7.9 mmol/L (3-11); BUN 24 mg/dL (7-18); CO2 29.1 mmol/L (21.0-32.0); CREATININE 1.8 mg/dL (0.55-1.02); Calcium 9.5 mg/dL (8.5-10.1); Chloride 102 mmol/L (98-107); Estimated GFR 29.94 (mL/min/1.73m2); Glucose 133 mg/dL (74-106); Sodium 139 mmol/L (136-145)
== END 2024-11-19 10:08 | disposition home or self-care (01) ==
LOC: LBO 10:08
PROVIDERS: PCP Nurse Practitioner Family; Visit Provider Nurse Practitioner Family
DX: I50.9 Heart failure, unspecified (principal)
CPT/HCPCS: 36415; 80048

== ENCOUNTER 2025-03-30 12:10 | Outpatient (CLI) | payer MEDICARE, SELFPAY ==
[2025-03-30 12:41] LABS: Abs Immature Grans 0.05 10^3/uL (0.0-0.06); HCT 43.7 % (36.0-46.0); HGB 13.9 g/dL (11.2-15.7); Immature Grans % 0.6 %; MCH 30.2 pg (27.0-33.0); MCHC 31.8 % (32.0-36.0); MCV 95 fL (80-95); MPV 11.0 fL (8.0-11.0); Platelet Count 248 10^3/uL (130-400); RBC 4.61 10^6/uL (3.93-5.22); RDW 15.9 % (11.7-14.6); RDW-SD 54.8 fL; WBC 8.23 10^3/uL (4.4-10.8)
[2025-03-30 13:00] LABS: ALT 34 U/L (14-59); AST 23 U/L (15-37); Albumin 3.9 g/dL (3.4-5.0); Alkaline Phosphatase 109 U/L (46-116); Anion Gap 9.7 mmol/L (3-11); BUN 24 mg/dL (7-18); Bilirubin, Total 0.4 mg/dL (0.2-1.0); C-Reactive Protein 0.52 mg/dL (<or=0.5); CO2 31.3 mmol/L (21.0-32.0); Calcium 9.4 mg/dL (8.5-10.1); Chloride 100 mmol/L (98-107); Glucose 104 mg/dL (74-106); Magnesium 2.2 mg/dL (1.8-2.4); Potassium 3.8 mmol/L (3.5-5.1); Sodium 141 mmol/L (136-145); Total Protein 8.1 g/dL (6.4-8.2)
[2025-03-30 13:34] LABS: Vitamin D 25 Total 27 ng/mL (30-100)
[2025-03-30 14:01] LABS: Glucose Negative (Negative)
[2025-03-30 14:20] LABS: Prot/Crea Ur Ratio 0.35
[2025-03-30 14:31] LABS: Microalb ug/mg Crea 71.0 ug/mg Cr
[2025-03-30 14:31] LABS: C & S Indicated? No
[2025-04-03 06:36] LABS: Calcium, Random Ur 7 mg/dL; Creatinine, Random Ur 25 mg/dL (16 - 326)
== END 2025-03-30 12:11 | disposition home or self-care (01) ==
LOC: LBO 12:13
PROVIDERS: PCP Nurse Practitioner Family; Visit Provider Internal Medicine
DX: E21.3 Hyperparathyroidism, unspecified (principal); N18.9 Chronic kidney disease, unspecified
CPT/HCPCS: 80053; 82306; 82310; 81003; 81015; 82043; 82565; 82570; 83735; 83970; 84100; 84156; 85025; 86140

== ENCOUNTER → 2025-04-12 13:46 | Outpatient (CLI) | payer MEDICARE, SELFPAY ==
--- NOTE | 2025-04-12 12:15 | DI.RAD_ITS ---
Exam(s) XR CHEST 2V PA LATERAL EXAM: XR CHEST 2V PA LATERAL CLINICAL HISTORY: chf/atrial fib,new onset dyspnea I48.21, I50.9 TECHNIQUE: 2D digital imaging was performed. Two views. COMPARISON: CR XR CHEST 2V PA LATERAL from 08/24/2024 FINDINGS: HEART: Enlarged, unchanged. Aorta: Not dilated. PULMONARY VASCULATURE: Normal. MEDIASTINUM: Unremarkable. LUNGS: Clear. PLEURAL SPACE: No pleural effusion or pneumothorax. BONE:Unremarkable for age. SOFT TISSUES: Unremarkable. IMPRESSION: Cardiomegaly. No acute abnormality. DATA REPOSITORY: RADIATION DOSE DELIVERED:
== END ==
PROVIDERS: PCP Nurse Practitioner Family; Visit Provider Family Medicine
DX: I48.21 Permanent atrial fibrillation (principal); I50.9 Heart failure, unspecified
CPT/HCPCS: 71046